=== PATIENT | male | born 1970 | race Two or more races ===

== ENCOUNTER 2024-09-18 20:55 | Inpatient (IN) | payer MEDICAID, SELFPAY ==
[2024-09-18 21:17] VITALS: BP 115/83; PULSE 112; RESP 20; TEMP 36.9; O2SAT 97
[2024-09-18 21:43] LABS: Basophils # (Auto) 0.0 Thou/mm3 (0.0-0.2); Basophils % (Auto) 0 % (0-2.5); Eosinophils # (Auto) 0.0 Thou/mm3 (0.0-0.5); Eosinophils % (Auto) 0 % (0-10); Hematocrit 42.5 % (41.0-53.0); Hemoglobin 14.9 g/dL (13.5-16.0); Immature Granulocytes Auto 0.03 Thou/mm3 (0.00-0.00); Lymphocytes # (Auto) 0.7 Thou/mm3 (1.0-4.8); Lymphocytes % (Auto) 7 % (10-50); Mean Corpuscular HGB Conc 35.1 g/dl (31.0-37.0); Mean Corpuscular Hemoglobin 34.8 pg (25.0-35.0); Mean Corpuscular Volume 99 fL (80-100); Monocytes # (Auto) 0.5 Thou/mm3 (0.0-0.8); Monocytes % (Auto) 5 % (0-12); Neutrophils # (Auto) 9.0 Thou/mm3 (1.8-7.7); Neutrophils % (Auto) 87 % (37-80); Nucleated Red Blood Cell # 0.00 Thou/mm3 (0.00-0.00); Nucleated Red Blood Cell % 0 /100 WBC (0); Platelet Count 386 Thou/mm3 (140-440); RDW Standard Deviation 46.5 fL (35.1-43.9); Red Blood Count 4.28 Miln/mm3 (4.50-5.90); White Blood Count 10.3 Thou/mm3 (3.8-10.6)
[2024-09-18 22:02] LABS: Alanine Aminotransferase 22 U/L (10-49); Albumin, Serum 5.2 gm/dL (3.5-5.0); Albumin/Globulin Ratio 1.9 (1.2-2.2); Alkaline Phosphatase 89 U/L (46-116); Anion Gap 13 (7-16); Aspartate Amino Transferase 23 U/L (0-34); BUN/Creatinine Ratio 24 Ratio (12-20); Bilirubin,Total 1.1 mg/dL (0.3-1.2); Blood Urea Nitrogen 24 mg/dL (9-23); Calcium 10.7 mg/dL (8.3-10.6); Calcium (Corrected) 10.7 mg/dL (8.5-10.1); Carbon Dioxide 30.4 mMol/L (20.0-31.0); Chloride 93 mMol/L (98-107); Creatinine (Component) 1.0 mg/dL (0.6-1.3); Globulin 2.8 gm/dL (2.3-3.5); Glucose 144 mg/dL (74-106); Lipase 32 U/L (12-53); Osmolality,Calculated 278 (275-295); Potassium 3.4 mMol/L (3.4-5.1); Sodium 136 mMol/L (136-145); Total Protein 8.0 gm/dL (5.7-8.2); eGFR > 60 See Note
--- NOTE | 2024-09-18 22:31 | PD.EDADDENDU ---
Emergency Room Addendum Addendum Narrative: Patient not seen formally by a physician as patient left after triage.
--- NOTE | 2024-09-18 23:01 | PC.NURSE ---
NO ANSWER AT ER LOBBY OR OUTSIDE ER TO COLLECT URINE SPECIMEN.
--- NOTE | 2024-09-18 23:01 | PD.EDABDPN ---
ED Abdominal Pain RME/HPI General Chief Complaint: Abdominal Pain Stated complaint: ABD PAIN Time seen by provider: 09/18/24 21:19 Arrival date/time: 09/18/24 20:55 RME / HPI RME / HPI narrative: Dr. Ng?rosy Main ED Evaluation: Related Data Allergies Allergy/AdvReac Type Severity Reaction Status Date / Time No Known Allergies Allergy Verified 09/18/24 23:00 Review of Systems Review of Systems Systems Reviewed: All systems reviewed, normal except as documented Past Medical History Social History SMOKING STATUS: Current every day smoker ED Exam Narrative Physical exam: GENERAL APPEARANCE: alert and oriented x 4, well-developed, well-nourished, no acute distress VITALS: All vitals were reviewed and the pulse ox is 97% on room air, which is normal according to my interpretation. HEENT: Normocephalic, atraumatic; pupils equal, round, reactive to light; EOMI; mucous membranes pink, moist; oropharynx clear NECK: Supple LUNGS: CTABL; no wheezes, no rales, no rhonchi HEART: Regular rate, regular rhythm; normal S1, S2; no murmurs ABDOMEN: non distended; normal BS; soft, no tenderness, no guarding, no rebound; no masses, no organomegaly, no hernia BACK: no CVA tenderness EXTREMITIES: atraumatic; no edema NEUROLOGIC: awake; alert and oriented x4; cranial nerves II-XII grossly intact; no focal sensory or motor deficits PSYCHIATRIC: appropriate mood and affect SKIN: warm, dry, normal color; no rashes Course Quality Measures none Orders Category Date Time Status Saline [Insert IV] NOW Care 09/18/24 21:18 Active CBC [CBC] Stat Lab 09/18/24 21:27 Completed CMP [Comprehensive Metabolic Panel] Stat Lab 09/18/24 21:27 Completed Lipase Stat Lab 09/18/24 21:27 Completed Urinalysis, C/S if Indicated Stat Lab 09/18/24 21:18 Ordered Vital Signs Vital signs: Vital Signs Temperature 98.4 F 09/18/24 21:17 Pulse Rate 112 H 09/18/24 21:17 Respiratory Rate 20 09/18/24 21:17 Blood Pressure 115/83 09/18/24 21:17 Pulse Oximetry (%) 97 09/18/24 21:17 Oxygen Delivery Method Room Air 09/18/24 21:17 Abdominal Pain MDM MDM Narrative MDM Narrative:: Scribe Attestation: 09/18/24 - Angelique Rosen am scribing for and in the presence of Dr. Ng. Patient data External records reviewed:: [facility] previous records (Per chart review, patient has no previous ED visits or admissions to this facility.) Clinical information provided by:: patient Social determinants that could affect healthcare access:: none Patient has the following chronic illnesses:: none How is presenting disease/condition affected by chronic disease/condition?: no chronic disease Evaluation data The following diagnostics were reviewed and interpreted by me:: lab results Lab and/or radiology exams considered but not ordered:: none Medications / Prescriptions Medications or Prescriptions considered but not ordered:: none Discharge Plan Prescriptions/Referrals Referrals: No Primary/Family,Physician [Primary Care Provider] - In 1 week Patient/Caregiver Discharge Instructions Print Language: Maltese
--- NOTE | 2024-09-18 23:07 | PC.NURSE ---
NO ANSWER AT ER LOBBY OR OUTSIDE ER TO BE SEEN BY .
--- NOTE | 2024-09-18 23:11 | PD.EDADDENDU ---
Emergency Room Addendum Addendum Narrative: Patient was not seen formally by physician as patient left after being triaged.
[2024-09-18 23:32] LABS: Collection Type, Urine Clean Catch
--- NOTE | 2024-09-18 23:32 | EDNOTE_ITS ---
ED Abdominal Pain RME/HPI General Chief Complaint: Abdominal Pain Stated complaint: ABD PAIN Time seen by provider: 09/18/24 21:19 Arrival date/time: 09/18/24 20:55 RME / HPI RME / HPI narrative: Dr. Ng?s Main ED Evaluation: 54yo male with no significant past medical or surgical history presents to the ED for complaints of generalized abdominal pain and distention x 3 days. Noted chills. No fever. Last bowel movement was 1 day [employer]. Reports several nonbloody emetic episodes over the last 24 hours. Social Hx includes tobacco use, but no alcohol or illicit drug use. Related Data Allergies Allergy/AdvReac Type Severity Reaction Status Date / Time No Known Allergies Allergy Verified 09/18/24 23:00 Review of Systems Review of Systems Systems Reviewed: All systems reviewed, normal except as documented ED Exam Narrative Physical exam: GENERAL APPEARANCE: alert and oriented x 4, appears to be in pain, in [id number] distress VITALS: All vitals were reviewed and the pulse ox is 97% on room air, which is normal according to my interpretation. HEENT: Normocephalic, atraumatic; pupils equal, round, reactive to light; EOMI; mucous membranes pink, moist; oropharynx clear NECK: Supple LUNGS: CTABL; no wheezes, no rales, no rhonchi HEART: Regular rate, regular rhythm; normal S1, S2; no murmurs ABDOMEN: 2+ distended; soft, diffuse tenderness with peritoneal findings at the epigastrium EXTREMITIES: atraumatic; no edema NEUROLOGIC: awake; alert and oriented x4; cranial nerves II-XII grossly intact; no focal sensory or motor deficits PSYCHIATRIC: appropriate mood and affect SKIN: warm, dry, normal color; no rashes Course Quality Measures none Orders Category Date Time Status Insert NG / OG tube NOW Care 09/19/24 02:43 Active Miscellaneous Nursing Order NOW Care 09/19/24 02:54 Active Saline [Insert IV] NOW Care 09/18/24 21:[address] abdomen pelvis wo con Stat Exams 09/18/24 23:39 Completed XR chest 1V post procedure Stat Exams 09/19/24 02:49 Ordered CBC [CBC] Stat Lab 09/18/24 21:27 Completed CMP [Comprehensive Metabolic Panel] Stat Lab 09/18/24 21:27 Completed Lipase Stat Lab 09/18/24 21:27 Completed Urinalysis, C/S if Indicated Stat Lab 09/18/24 23:28 Completed HYDROmorphone INJ [Dilaudid Inj] Med 09/19/24 00:59 Discontinued 0.5 mg IVP X1 ONE Lidocaine Inj 2% 20 ml [Xylocaine Inj 2% 20 ml] Med 09/19/24 02:48 Discontinued 8 ml INFL X1 ONE Morphine Inj Med 09/18/24 23:39 Discontinued 4 mg IVP X1 ONE Ondansetron Inj [Zofran Inj] Med 09/18/24 23:39 Discontinued 4 mg IVP X1 ONE Sodium Chloride 0.9% 1000 ml [Ns] 1,000 ml Med 09/18/24 23:41 Discontinued IV 999 mls/hr Vital Signs Vital signs: Vital Signs Temperature 98.4 F 09/18/24 21:17 Pulse Rate 112 H 09/18/24 21:17 Respiratory Rate 20 09/18/24 21:17 Blood Pressure 115/83 09/18/24 21:17 Pulse Oximetry (%) 97 09/18/24 21:17 Oxygen Delivery Method Room Air 09/18/24 21:17 Abdominal Pain MDM MDM Narrative MDM Narrative:: Scribe Attestation: 09/18/24 Angelique Garcia am scribing for and in the presence of Dr. Ng. 54yo male with no significant past medical or surgical history presents to the ED for complaints of generalized abdominal pain and distention x 3 days. Noted chills. Please see PE findings. Labs including CBC and CMP are unrmrekable. Patient hydrated with saline and treated with incremental doses of anlagesics with [id number] relief. CT shows gastric outlet obstruction. NG tube placed. Hospitalist and general surgeon consulted and will admit the patient. Dx: gastric outlet obstruction. Patient data External records reviewed:: [facility] previous records (Per chart review, patient has no previous ED visits or admissions to this facility.) Clinical information provided by:: patient Social determinants that could affect healthcare access:: none Patient has the following chronic illnesses:: none How is presenting disease/condition affected by chronic disease/condition?: no chronic disease Evaluation data The following diagnostics were reviewed and interpreted by me:: lab results and radiology exam(s) Lab and/or radiology exams considered but not ordered:: none Interpretation Summary: [facility] Report Signed Patient: KENZIE LUCIA. Record#: [id number] Birthdate: 1970 Age/Sex: 54 / M Location: [facility] Attending Dr: Ordering Physician: Vince Diaz DO Date of Service: 09/18/24 Procedure(s): CT abdomen pelvis wo con Accession Number(s): [id number] cc: Vince Diaz DO; Yakov Sheridan MD; NO PRIMARY/FAMILY,PHYSICIAN~ Examination: CT abdomen and pelvis without contrast. Coronal 3-D reconstructions. Sagittal 2-D reconstructions. Date and time of exam:September 18, 2024, 11:50 PM INDICATIONS: Abdominal pain and distention today CTDI: vol (mGy): 6.25 DLP: (mGycm): 355 Technique: Axial images of the abdomen have been obtained, 3 mm slice thickness Intravenous contrast material has not been administered. Low dose protocols were performed. One or more of the following dose reduction techniques were used; automated exposure control, adjustment of the mA and/or KV according to patient size, use of iterative reconstruction technique. Findings: No focal liver or splenic lesions Fluid distended stomach Gallbladder is poorly visualized No pancreatic mass No renal or ureteral calculi, no hydronephrosis No pericecal inflammatory change No renal or ureteral calculi, no hydronephrosis No diverticulitis Contracted urinary bladder No prostatomegaly The osseous structures are intact IMPRESSION: Limited study without intravenous contrast Fluid-filled distended stomach. If gastric outlet obstruction is a clinical consideration, suggest upper GI series in the a.m. to assess for gastric or peptic ulcer disease Dictated By: Yakov Sheridan MD Signed By: <Electronically signed by Yakov Sheridan MD in OV> 09/19/24 0007 Medications / Prescriptions Medications or Prescriptions considered but not ordered:: none Medication administrations:: Medication Administration History Acetaminophen (Acetaminophen 325 Mg Tablet) 650 mg PO Q6H PRN PRN Reason: Pain 1-3 and/or Fever >100.1 Stop: 10/19/24 04:16 Hydrocodone Bitart/Acetaminophen (Hydrocodone/Apap 10/325 Tab) 1 tab PO Q4H PRN PRN Reason: PAIN SCALE 4-6 (Moderate Stop: 09/24/24 04:16 Heparin Sodium (Porcine) (Heparin Sod Inj 5000 Unit/Ml Vial) 5,000 unit SC Q12HR CHASITY Stop: 10/03/24 08:59 Sodium Chloride (Ns) 1,000 mls @ 100 mls/hr IV .Q10H ONE Stop: 09/19/24 14:20 Last Admin: 09/19/24 04:41 Dose: 100 mls/hr Documented By: TRISTAN Morphine Sulfate (Morphine Sulf Inj 10 Mg/Ml Vial) 1 mg IVP Q6H PRN PRN Reason: PAIN SCALE 7-10 (Severe Stop: 09/24/24 04:16 Ondansetron HCl (Ondansetron Inj 2 Mg/Ml Inj 2 Ml) 4 mg IVP Q6H PRN; Protocol PRN Reason: NAUSEA OR VOMITING Stop: 10/19/24 04:16 Sennosides (Senna Tablet) 1 tab PO QDAY PRN; Protocol PRN Reason: constipation Stop: 10/19/24 04:16 Discontinued Medications Hydromorphone HCl (Hydromorphone Inj 2 Mg/Ml Vial) 0.5 mg IVP X1 ONE Stop: 09/19/24 01:00 Last Admin: 09/19/24 01:16 Dose: 0.5 mg Documented By: ALFREDITO Sodium Chloride (Ns) 1,000 mls @ 999 mls/hr IV .Q1H1M ONE Stop: 09/19/24 00:41 Last Infusion: 09/19/24 00:57 Dose: Infused Documented By: Admin: 09/19/24 00:07 Dose: 999 mls/hr Documented By: TRISTAN Lidocaine HCl (Lidocaine Inj 2% 20 Ml Vial) 8 ml INFL X1 ONE Stop: 09/19/24 02:49 Last Admin: 09/19/24 04:37 Dose: 8 ml Documented By: TRISTAN Comments: admin by rt Morphine Sulfate (Morphine Sulf Inj 10 Mg/Ml Vial) 4 mg IVP X1 ONE Stop: 09/18/24 23:40 Last Admin: 09/19/24 00:09 Dose: 4 mg Documented By: TRISTAN Ondansetron HCl (Ondansetron Inj 2 Mg/Ml Inj 2 Ml) 4 mg IVP X1 ONE; Protocol Stop: 09/18/24 23:40 Last Admin: 09/19/24 00:07 Dose: 4 mg Documented By: TRISTAN see above Consultations Consultation(s) initiated? (list below): Yes Consultation #1 (Physician, Specialty, Details): Discussed case with Dr. Ziegler from general surgery regarding consultation. Discussed patients ED course, exam findings, labs, and radiology results. Recommends consulting GI. Time: 02:36 Consultation #2 (Physician, Specialty, Details): Discussed case with the resident physician, attending Dr. Ribeiro from Hospitalist service regarding admission. Discussed patients ED course, exam findings, labs, and radiology results. The Hospitalist agrees to accept the patient for admission. Time: 02:39 Diagnosis Differential diagnosis abdominal pain: diverticulitis, gastroenteritis, pancreatitis and small bowel obstruction Most likely diagnosis given after review of the tests above:: see clinical impression below Admission Indicated Admission indicated?: indicated Admission Request Was there a request for admission?: Yes Admission Attestation Admission request attestation: Discussed case with [] from Hospitalist service regarding admission. Discussed patients ED course, exam findings, labs, and radiology results. The Hospitalist [agrees,declines] to accept the patient for admission. Disposition Plan Disposition Plan: Admit Discharge Plan Plan Patient Disposition: Admit Acute Care w/in Hospital Problem List Clinical Impression: Gastric outlet obstruction
[2024-09-18 23:38] LABS: Bilirubin,Urine Negative (Negative); Blood,Urine Trace (Negative); Clarity,Urine Clear (Clear/Hazy); Color,Urine Yellow (Lt Yel-Yel); Culture Indicated,Urine Not Indicated; Glucose, Urine Negative (Negative); Hyaline Casts,Urine < 1 /hpf (0-1); Ketones,Urine Trace (Negative); Leukocyte Esterase,Urine Negative (Negative); Nitrite,Urine Negative (Negative); PH,Urine 6.0 (5.0-7.0); Protein,Urine 1+ (Neg - Trace); RBC,Urine 6 /hpf (0-3); Specific Gravity,Urine 1.034 (1.001-1.035); Squamous Epithelial Cell,Urine < 1 /hpf (0-5); Urobilinogen,Urine Negative mg/dL (0.0-1.0); WBC,Urine 2 /hpf (0-5)
--- NOTE | 2024-09-18 23:39 | XR_ITS ---
Examination: CT abdomen and pelvis without contrast. Coronal 3-D reconstructions. Sagittal 2-D reconstructions. Date and time of exam:September 18, 2024, 11:50 PM INDICATIONS: Abdominal pain and distention today CTDI: vol (mGy): 6.25 DLP: (mGycm): 355 Technique: Axial images of the abdomen have been obtained, 3 mm slice thickness Intravenous contrast material has not been administered. Low dose protocols were performed. One or more of the following dose reduction techniques were used; automated exposure control, adjustment of the mA and/or KV according to patient size, use of iterative reconstruction technique. Findings: No focal liver or splenic lesions Fluid distended stomach Gallbladder is poorly visualized No pancreatic mass No renal or ureteral calculi, no hydronephrosis No pericecal inflammatory change No renal or ureteral calculi, no hydronephrosis No diverticulitis Contracted urinary bladder No prostatomegaly The osseous structures are intact IMPRESSION: Limited study without intravenous contrast Fluid-filled distended stomach. If gastric outlet obstruction is a clinical consideration, suggest upper GI series in the a.m. to assess for gastric or peptic ulcer disease
[2024-09-19] VITALS (7 sets, daily range): BP systolic 120–165; BP diastolic 65–97; PULSE 75–98; RESP 17–19; TEMP 36.2–36.8; O2SAT 95–98; BMI 22.8
[2024-09-19] MEDS: SODIUM CHLORIDE 0.9% 1000 ML 1,000 ML 999 ML IV (00:07)
[2024-09-19] MEDS: ONDANSETRON INJ 2 MG/ML INJ 2 ML 4 MG IVP (00:07)
[2024-09-19] MEDS: MORPHINE SULF INJ 10 MG/ML VIAL 4 MG IVP (00:09)
--- NOTE | 2024-09-19 00:16 | PC.NURSE ---
PT CAME INTO ER FOR 3XDAYS OF ABDOMINAL PAIN WITH N/V
[2024-09-19] MEDS: HYDROmorphone INJ 2 MG/ML VIAL 0.5 MG IVP (01:16)
--- NOTE | 2024-09-19 02:49 | XR_ITS ---
Examination: AP chest single view Technique one AP portable upright chest single view Date and time: September 19, 2024 0715 hours INDICATIONS: Post orogastric tube placement FINDINGS: Orogastric tube sidehole at the GE junction Normal heart size No lobar pneumonia. IMPRESSION: Advance the orogastric tube 7 cm
--- NOTE | 2024-09-19 04:28 | PD.RESHP ---
Documentation for date of: 09/19/24 [facility] History of Present Illness History of present illness: Trevor Cannon is a 54-year-old M with no known PMH who presents today with abdominal pain and vomiting. Patient states that the abdominal pain began about a month ago but that it has acutely worsened just today. He endorses vomiting 6 to 7 times today without hematemesis and had his last bowel movement 4-5 hours ago producing watery, black stools. In the ED, vitals showed: BP 115/83 HR 112 RR 20 Temp 98.4 SpO2 97% on room air ED Course: CBC showed slightly low RBC 4.28 but no other significant findings. CMP showed slightly low potassium 3.4, slightly low chloride 93, high glucose of 144, and slightly high calcium 10.7. In the ED, patient had an NG tube placed and was given 1 L NS bolus, IV Zofran x1, IV morphine x1, and IV Dilaudid x1. On Imaging: A CTAP was ordered to workup the abdominal distention and showed a fluid-filled distended stomach with possible gastric outlet obstruction. Per radiology, it was recommended that an upper GI series be conducted in the morning to assess for gastric or peptic ulcer disease. Patient was admitted for the work-up and management of possible gastric outlet obstruction and abdominal pain. Gastroenterology (Dr. Huerta) was consulted and is closely following the case. Review of Systems Review of Systems Narrative Review of Systems: General: Denies fevers or chills HEENT: Denies congestion or sore throat Heart: Denies chest pain or palpitations Lungs: Endorses shortness of breath. Denies cough Abdomen: Endorses generalized abdominal pain, N/V/D, and possible melena. Denies constipation Genitourinary: Denies frequency, urgency, dysuria, or hematuria Neurology: Denies any changes in vision, weakness or difficulty speaking Review of systems otherwise negative except what is mentioned above. 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 Skin: Warm, dry, intact, no obvious rash. Head: Normocephalic, atraumatic. Eye: Normal conjunctiva, PERRL. Throat: Oral mucosa moist. No obvious lesions in oropharynx. Cardiovascular: Regular rate and rhythm, no murmur, +S1/S2. Respiratory: Lungs are clear to auscultation, respirations unlabored, no crackles, no wheezing. Gastrointestinal: Generalized abdominal tenderness in all 4 quadrants. Distended abdomen. No guarding or rebound tenderness. Extremities: No edema, no cyanosis, no clubbing. 2+ radial pulse bilaterally, 2+ posterior tibial pulse bilaterally. Neuro: No focal deficits observed. Conversant, moving all extremities. No overt cerebellar signs/incoordination. Psychiatric: Cooperative, appropriate affect. Results: Labs 09/19/24 04:50 09/19/24 04:50 Labs: Short CBC 09/18/24 Range/Units 21:27 WBC 10.3 (3.8-10.6) Thou/mm3 Hgb 14.9 (13.5-16.0) g/dL Hct 42.5 (41.0-53.0) % Plt Count 386 (140-440) Thou/mm3 BMP 09/18/24 21:27 Sodium 136 Potassium 3.4 Chloride 93 L Carbon Dioxide 30.4 BUN 24 H Creatinine 1.0 Glucose 144 H Calcium 10.7 H Liver Function 09/18/24 Range/Units 21:27 Total Bilirubin 1.1 (0.3-1.2) mg/dL AST 23 (0-34) U/L ALT 22 (10-49) U/L Alkaline Phosphatase 89 (46-116) U/L Albumin 5.2 H (3.5-5.0) gm/dL Urine 09/18/24 Range/Units 23:28 Urine Color Yellow (Lt Yel-Yel) Urine Clarity Clear (Clear/Hazy) Urine pH 6.0 (5.0-7.0) Ur Specific [place] 1.034 (1.001-1.035) Urine Protein 1+ A (Neg - Trace) Urine Glucose (UA) Negative (Negative) Quality Measures Quality Measures none Medications Home Medications and Allergies Allergies Allergy/AdvReac Type Severity Reaction Status Date / Time No Known Allergies Allergy Verified 09/18/24 23:00 Visit Medications Acetaminophen (Acetaminophen 325 Mg Tablet) 650 mg PO Q6H PRN PRN Reason: Pain 1-3 and/or Fever >100.1 Stop: 10/19/24 04:16 Hydrocodone Bitart/Acetaminophen (Hydrocodone/Apap 10/325 Tab) 1 tab PO Q4H PRN PRN Reason: PAIN SCALE 4-6 (Moderate Stop: 09/24/24 04:16 Heparin Sodium (Porcine) (Heparin Sod Inj 5000 Unit/Ml Vial) 5,000 unit SC Q12HR CHASITY Stop: 10/03/24 08:59 Sodium Chloride (Ns) 1,000 mls @ 100 mls/hr IV .Q10H ONE Stop: 09/19/24 14:20 Morphine Sulfate (Morphine Sulf Inj 10 Mg/Ml Vial) 1 mg IVP Q6H PRN PRN Reason: PAIN SCALE 7-10 (Severe Stop: 09/24/24 04:16 Ondansetron HCl (Ondansetron Inj 2 Mg/Ml Inj 2 Ml) 4 mg IVP Q6H PRN; Protocol PRN Reason: NAUSEA OR VOMITING Stop: 10/19/24 04:16 Sennosides (Senna Tablet) 1 tab PO QDAY PRN; Protocol PRN Reason: constipation Stop: 10/19/24 04:16 Discontinued Medications Hydromorphone HCl (Hydromorphone Inj 2 Mg/Ml Vial) 0.5 mg IVP X1 ONE Stop: 09/19/24 01:00 Last Admin: 09/19/24 01:16 Dose: 0.5 mg Sodium Chloride (Ns) 1,000 mls @ 999 mls/hr IV .Q1H1M ONE Stop: 09/19/24 00:41 Last Infusion: 09/19/24 00:57 Dose: Infused Lidocaine HCl (Lidocaine Inj 2% 20 Ml Vial) 8 ml INFL X1 ONE Stop: 09/19/24 02:49 Morphine Sulfate (Morphine Sulf Inj 10 Mg/Ml Vial) 4 mg IVP X1 ONE Stop: 09/18/24 23:40 Last Admin: 09/19/24 00:09 Dose: 4 mg Ondansetron HCl (Ondansetron Inj 2 Mg/Ml Inj 2 Ml) 4 mg IVP X1 ONE; Protocol Stop: 09/18/24 23:40 Last Admin: 09/19/24 00:07 Dose: 4 mg Assessment & Plan Assessment Trevor Cannon is a 54-year-old M with no known PMH who presents today with abdominal pain and vomiting. Patient was admitted for the work-up and management of possible gastric outlet obstruction and abdominal pain. #Abdominal pain #Possible gastric outlet obstruction CTAP showed a fluid-filled distended stomach with possible gastric outlet obstruction -Ordered hemoglobin A1c -Ordered an upper GI series -GI has been consulted, awaiting recommendations (could consider upper GI series, gastric emptying study or barium swallow) #Hypercalcemia Upon admission, patient had a high calcium of 10.7 Denied any symptoms related to hypercalcemia -Started 1 L NS IV maintenance fluids -Ordered PTH levels Hospital Management: Disposition: undergoing workup and management for possible gastric outlet obstruction and abdominal pain Fluids: 1 L IV NS maintenance Diet: NPO for possible upper GI series Lines: none DVT Prophylaxis: heparin Bowel Prophylaxis: senna Jalloh: none CODE STATUS: Full Code I have examined the patient and conferred with my attending, Dr. Ribeiro, and my senior resident, Dr. Witt, regarding them. Santiago Schreiber DO PGY-1 Internal Medicine Attending Provider Attestation/Addendum After examination of the patient and review of the clinical data I feel that this patient needs admission to the hospital for further treatment/evaluation. I have discussed and was present for the essential components of the history, physical examination, diagnosis, and treatment plan with the resident. I agree with the patient's care as documented by the resident and amended herein by me. Darell Ribeiro DO. Although this document has been carefully reviewed, there may still be some phonetic and other typographical errors. These errors are purely grammatical due to imperfections in the software program and should not be construed in any way to compromise the substance of the patient's medical care during this visit. Patient seen and evaluated in the ED. 54-year-old male with no reported past medical history presented to the ED for abdominal pain which been present over the past month however acutely worse in the last day prior to admission. Endorses nonbilious, nonbloody vomiting. Last BM approximately 4 to 5 hours ago's which was very loose and black. Patient subsequently admitted for distended stomach, concern for gastric outlet obstruction. In the ED, patient was hypertensive at time of our visit 165/89 mmHg, patient was afebrile, and saturating well on room air. Labs largely unremarkable with exception of bicarb of 31. CT abdomen pelvis significant for a fluid-filled distended stomach with concern for gastric outlet obstruction. Patient was given 2 L NS, Zofran, morphine and Dilaudid in the ED. An NG tube was also ordered. At this time patient will be admitted to [facility] for possible gastric outlet obstruction. Lower concern for GIB at this time, gastroenterology has been consulted and an upper GI series has been ordered. FOBT also ordered. Pain control also on board as well as antiemetics. Will continue to monitor closely, appreciate GI recommendations
[2024-09-19] MEDS: LIDOCAINE INJ 2% 20 ML VIAL 8 ML INFL (04:37)
[2024-09-19] MEDS: SODIUM CHLORIDE 0.9% 1000 ML 1,000 ML 100 ML IV (04:41)
[2024-09-19 04:57] LABS: Basophils # (Auto) 0.0 Thou/mm3 (0.0-0.2); Basophils % (Auto) 0 % (0-2.5); Eosinophils # (Auto) 0.0 Thou/mm3 (0.0-0.5); Eosinophils % (Auto) 0 % (0-10); Hematocrit 38.0 % (41.0-53.0); Hemoglobin 13.4 g/dL (13.5-16.0); Immature Granulocytes Auto 0.02 Thou/mm3 (0.00-0.00); Lymphocytes # (Auto) 0.8 Thou/mm3 (1.0-4.8); Lymphocytes % (Auto) 8 % (10-50); Mean Corpuscular HGB Conc 35.3 g/dl (31.0-37.0); Mean Corpuscular Hemoglobin 34.6 pg (25.0-35.0); Mean Corpuscular Volume 98 fL (80-100); Monocytes # (Auto) 0.7 Thou/mm3 (0.0-0.8); Monocytes % (Auto) 7 % (0-12); Neutrophils # (Auto) 8.6 Thou/mm3 (1.8-7.7); Neutrophils % (Auto) 85 % (37-80); Nucleated Red Blood Cell # 0.00 Thou/mm3 (0.00-0.00); Nucleated Red Blood Cell % 0 /100 WBC (0); Platelet Count 344 Thou/mm3 (140-440); RDW Standard Deviation 46.2 fL (35.1-43.9); Red Blood Count 3.87 Miln/mm3 (4.50-5.90); White Blood Count 10.1 Thou/mm3 (3.8-10.6)
--- NOTE | 2024-09-19 05:02 | PC.NURSE ---
ATTEMPTED TO CONTACT [facility] 3 TIMES. NO ANSWER FROM PHONE CALL. WILL REATTEMPT TO CALL AGAIN
[2024-09-19 05:14] LABS: Parathyroid Hormone Intact 43.0 pg/ml (18.5-88.0)
[2024-09-19 05:20] LABS: Glucose Estimated Average 97 mg/dL (80-131); Hemoglobin A1C 5.0 % Hgb (4.8-6.0)
[2024-09-19 05:25] LABS: Alanine Aminotransferase 19 U/L (10-49); Albumin, Serum 4.5 gm/dL (3.5-5.0); Albumin/Globulin Ratio 1.7 (1.2-2.2); Alkaline Phosphatase 75 U/L (46-116); Anion Gap 11 (7-16); Aspartate Amino Transferase 20 U/L (0-34); BUN/Creatinine Ratio 33 Ratio (12-20); Bilirubin,Total 0.9 mg/dL (0.3-1.2); Blood Urea Nitrogen 26 mg/dL (9-23); Calcium 9.4 mg/dL (8.3-10.6); Calcium (Corrected) 9.4 mg/dL (8.5-10.1); Carbon Dioxide 31.5 mMol/L (20.0-31.0); Cardiac Risk Estimate 2.6 RATIO (4.0-6.7); Chloride 95 mMol/L (98-107); Cholesterol 132 mg/dL (132-200); Creatinine (Component) 0.8 mg/dL (0.6-1.3); Globulin 2.7 gm/dL (2.3-3.5); Glucose 133 mg/dL (74-106); HDL Cholesterol 50 mg/dL (40-60); LDL Cholesterol,Calculated 65 mg/dL (0-130); Magnesium 1.6 mg/dL (1.6-2.6); Osmolality,Calculated 280 (275-295); Phosphorous 3.4 mg/dL (2.4-5.1); Potassium 3.5 mMol/L (3.4-5.1); Sodium 137 mMol/L (136-145); Total Protein 7.2 gm/dL (5.7-8.2); Triglycerides 83 mg/dL (30-150); eGFR > 60 See Note
--- NOTE | 2024-09-19 05:28 | XR_ITS ---
Examination: Upper GI series with KUB Fluoroscopy 7 spot fluoroscopic films of the stomach AP oblique abdomen films 2 views Date and time: September 19, 2024 1223 hours INDICATIONS: Vomiting this week, fluid distended stomach on CT abdomen pelvis September 18, 2024 TECHNIQUE AND FINDINGS: Patient received 120 cc Gastrografin through the orogastric tube Abundant food content in the stomach Delayed gastric emptying Spasm and irritability involving the duodenal bulb, small central duodenal bulb ulcer Duodenal sweep unremarkable Fluoroscopy 0.9 minute radiation dose 49.65 milligray 7 spot fluoroscopic films of the stomach IMPRESSION: Severe active peptic disease duodenum Small duodenal bulb ulcer
--- NOTE | 2024-09-19 06:31 | PC.NURSE ---
Attempted to use staff interpreter to obtain admission questions upon admission to floor. POC explained to patient, as admission questions began to be asked pt stated if your not going to do the fucking surgery then i am going to go to back to [place], get the fuck out of my room per staff interpreter. Pt continued to refuse to answer admission questions. Admission assessment was extremely limited.
--- NOTE | 2024-09-19 11:07 | XR_ITS ---
Examination: AP chest single view TECHNIQUE: Portable sitting AP chest single view Date and time: September 19, 2024 1135 hours INDICATIONS: Reposition orogastric tube. Finds: Orogastric tube in the stomach satisfactory position. Normal heart size IMPRESSION: Orogastric tube in the stomach satisfactory position
--- NOTE | 2024-09-19 11:13 | PC.SS ---
Follow up note: Pt has small bowel obstruction. On IV fluids. Xray to confirm NG Tube placement.
--- NOTE | 2024-09-19 13:16 | PD.RESPRO ---
Documentation for date of: 09/19/24 [facility] admission, patient presented with chief complain of hematemisis and melena over the last 3 days. Patient denied history of alcohol use or chronic NSAID use. Recent weight loss. Given gastric obstruction, penidng small bowel series, concern for ulcer vs malignancy vs stenosis. Gastroenteroloy consulted, Dr. Huerta. NPO, ice chips ok. Pending EGD. Subjective Subjective Interval history: Patient was evaluated at bedside today. Patient endorsed a 3 day history of abdominal pain, nausea, and hematemesis. Patient stated he had vomited 7 times each of the past 3 days. Bedside towel revealed eren hematemesis/coffee-ground emesis from earlier this morning. Patient stated that his last bowel movement was yesterday, resembling melena and of solid consistency. Patient has not had previous similar episodes. Patient does not use NSAIDs or drink, but has a smoking history. Patient acknowledged history of weight loss over the past couple of months. Consulted Dr. Huerta, recommended EGD and colonoscopy for upper GI bleed Upper GI series completed today shows likely peptic ulcer disease in the first part of the duodenum with severe collection of contents in the stomach. Exam Vital Signs Temp Pulse Resp BP Pulse Ox O2 Del Method 97.2 F 84 18 128/75 97 Room Air 09/19/24 12:00 09/19/24 12:09/19/24 12:09/19/24 12:00 09/19/24 12:09/19/24 12:00 Narrative Exam General Appearance: Alert & Oriented X3, well-nourished male who is lying in bed in moderate distress due to abdominal pain. HEENT: Skull symmetrical and atraumatic. Conjunctivae pink and moist. Pupils equal, round, reactive to light and accommodation (PERRL). External ear without lesion or discharge. Straight, nares patient, mucosa pink, no discharge. No thyroid nodule appreciated. No cervical lymphadenopathy. Cardio: Normal Rate and Rhythm with S1 and S2 heart sounds. No murmurs or extra heart sounds auscultated. No bruits on carotid auscultation. No peripheral edema or cyanosis. Lungs: Symmetric with good expansion. Chest and back non-tender. Breath sounds vesicular without crackles, wheezing or rhonchi Abdomen: Tenderness in all four quadrants most notably in the epigastric region, moderate distension, diminished bowel sounds. Neuro: Alert, cooperative, oriented to person, place, and time. Speech clear. CN grossly intact. Upper motor strength 5/5 and Lower motor strength 5/5. Sensation intact. Objective Labs 09/20/24 05:54 09/20/24 05:54 Labs: Laboratory Results - last 24 hr 09/18/24 09/18/24 09/19/24 21:27 23:28 04:50 WBC 10.3 10.1 RBC 4.28 L 3.87 L Hgb 14.9 13.4 L Hct 42.5 38.0 L MCV 99 98 MCH 34.8 34.6 MCHC 35.1 35.3 RDW Std Deviation 46.5 H 46.2 H Plt Count 386 344 D Neut % (Auto) 87 H 85 H Lymph % (Auto) 7 L 8 L Bartholomew % (Auto) 5 7 Eos % (Auto) 0 0 Baso % (Auto) 0 0 Neut # (Auto) 9.0 H 8.6 H Lymph # (Auto) 0.7 L 0.8 L Bartholomew # (Auto) 0.5 0.7 Eos # (Auto) 0.0 0.0 Baso # (Auto) 0.0 0.0 Immature Gran # (Auto) 0.03 H 0.02 H Absolute Nucleated RBC 0.00 0.00 Immature Gran % 0 0 Nucleated RBC % 0 0 Sodium 136 137 Potassium 3.4 3.5 Chloride 93 L 95 L Carbon Dioxide 30.4 31.5 H Anion Gap 13 11 BUN 24 H 26 H Creatinine 1.0 0.8 Estim Creat Clear Calc Not Performed. Not Performed. eGFR > 60 > 60 BUN/Creatinine Ratio 24 H 33 H Glucose [address] Glu mg/dL 97 Hemoglobin A1c 5.0 Calculated Osmolality 278 280 Calcium 10.7 H 9.4 Corrected Calcium 10.7 H 9.4 Phosphorus 3.4 Magnesium 1.6 Total Bilirubin 1.1 0.9 AST 23 20 ALT 22 19 Alkaline Phosphatase 89 75 Total Protein 8.0 7.2 Albumin 5.2 H 4.5 D Globulin 2.8 2.7 Albumin/Globulin Ratio 1.9 1.7 Triglycerides 83 Cholesterol 132 LDL Cholesterol, Calc 65 HDL Cholesterol 50 Cholesterol/HDL Ratio 2.6 L Lipase 32 PTH Intact 43.0 Ur Collection Type Clean Catch Urine Color Yellow Urine Clarity Clear Urine pH 6.0 Ur Specific [place] 1.034 Urine Protein 1+ A Urine Glucose (UA) Negative Urine Ketones Trace Urine Blood Trace Urine Nitrite Negative Urine Bilirubin Negative Urine Urobilinogen (Auto) Negative Ur Leukocyte Esterase Negative Urine RBC 6 H Urine WBC 2 Ur Squamous Epith Cells < 1 Urine Bacteria None Hyaline Casts < 1 Ur Culture Indicated? Not Indicated Quality Measures Quality Measures none Assessment & Plan Assessment Current Active Medications: Generic Name Dose Route Start Last Admin Trade Name Freq PRN Reason Stop Dose Admin Acetaminophen 650 mg 09/19/24 04:17 Acetaminophen 325 Mg Tablet PO 10/19/24 04:16 Q6H PRN Pain 1-3 and/or Fever >100.1 Hydrocodone Bitart/Acetaminophen 1 tab 09/19/24 04:17 Hydrocodone/Apap 10/325 Tab PO 09/24/24 04:16 Q4H PRN PAIN SCALE 4-6 (Moderate Heparin Sodium (Porcine) 5,000 unit 09/19/24 09:00 09/19/24 08:52 Heparin Sod Inj 5000 Unit/Ml Vial SC 10/03/24 08:59 Not Given Q12HR CHASITY Sodium Chloride 1,000 mls @ 100 mls/hr 09/19/24 04:21 09/19/24 04:41 Ns IV 09/19/24 14:20 100 mls/hr .Q10H ONE Administration Morphine Sulfate 1 mg 09/19/24 04:17 Morphine Sulf Inj 10 Mg/Ml Vial IVP 09/24/24 04:16 Q6H PRN PAIN SCALE 7-10 (Severe Ondansetron HCl 4 mg 09/19/24 04:17 Ondansetron Inj 2 Mg/Ml Inj 2 Ml IVP 10/19/24 04:16 Q6H PRN NAUSEA OR VOMITING Protocol Pantoprazole Sodium 40 mg 09/19/24 21:00 Pantoprazole Inj 40 Mg Vial IVP 10/19/24 20:59 BID CHASITY Sennosides 1 tab 09/19/24 04:17 Senna Tablet PO 10/19/24 04:16 QDAY PRN constipation Protocol Plan Trevor Cannon is a 54-year-old M with no known PMH who presents today with a three day history of abdominal pain, nausea, and hematemesis. Patient was admitted for the work-up and management of upper GI bleed and abdominal pain with gastric outlet obstruction. #Upper GI Bleed Patient has had multiple episodes of hematemesis over the past 3 days, in addition to at least one episode of melena; hematemesis visible on bedside towel. Patient acknowledged weight loss over the past couple of months Possible differentials: NSAID use (patient denies); peptic ulcer disease or malignancy both more likely Pertinent labs: 09/19 RBC 3.87 Hgb 13.4 Hct 38 Plan: -Consulted Dr. Huerta, plan for EGD and colonscopy -Protonix 40 mg IVP BID -Monitor CBC #Intractable Nausea and Vomiting Patient has had multiple episodes of hematemesis over the past 3 days, most recently this morning Plan: -NPO and NG tube #Abdominal pain #Possible gastric outlet obstruction Patient endorsing abdominal pain, most notable in the epigastric region CTAP 09/19 showed a fluid-filled distended stomach with possible gastric outlet obstruction Possible differentials: peptic ulcer disease, malignancy Plan: -Upper GI series 09/19: likely peptic ulcer disease in the first part of the duodenum with severe collection of contents in the stomach -hemoglobin A1c 09/19: 5 #Hypercalcemia Upon admission, patient had a high calcium of 10.7 Denied any symptoms related to hypercalcemia Pertinent labs: PTH 09/19 43 Plan: -IV fluid resuscitation -Monitor for symptoms, such as constipation and fatigue Hospital Management: Disposition: undergoing workup and management for upper GI bleed and abdominal pain with gastric outlet obstruction Fluids: 1 L IV NS maintenance Diet: NPO Lines: peripheral GI Prophylaxis: Protonix 40 mg IVP BID DVT Prophylaxis: heparin CODE STATUS: Full Code Case reviewed with attending Dr. Souza and senior resident Dr. Barrera. Tanya Le MS-4 - The patient's plan was discussed with attending Dr. Libby Barrera MD PGY2 Internal Medicine Attending Provider Attestation/Addendum 54-year-old male with no known past medical history presented with abdominal pain and hematemesis. Imaging significant for possible gastric outlet obstruction and plan to admit the patient for acute upper GI bleed with differentials including peptic ulcer disease, malignancy versus less likely esophageal varices. Got called by nursing staff that patient wanted to leave AMA however counseled patient and patient is in agreement to stay to undergo the full workup. I reviewed above note and agree with findings and plans. I have also personally examined the patient with medicine team and went over assessment and plan with medical team including internal combustion engine inspector and resident physician.
--- NOTE | 2024-09-19 14:50 | PD.RESCONSUL ---
HPI Data of Consult Requesting Physician: Romel Souza MD Admitting Provider: Scott Ribeiro DO Attending Provider: Romel Souza MD Primary Care Provider: Physician No Primary/Family Consult Narrative Reason for consult: abdominal pain and vomiting History of present illness: A 54-year-old male with no known past medical history and a significant smoking history presented to the ED on 09/18 with complaints of abdominal pain and vomiting. The patient reported that the abdominal pain began approximately 4?5 months ago but has worsened significantly, prompting this visit. He described the abdominal pain as constant burning/hot sensation that started bilaterally in the abdomen and radiating centrally. Over the past 24 hours, he has experienced 7?8 episodes of hematemesis with diaphoresis. He also reported a bitter taste in his mouth following vomiting. He had one episode of dark loose stool yesterday. He has been self-medicating with a mixture of baking soda and lemon, which he stated usually provides some relief, though it has not been effective this time. The patient also mentioned that he had previously been prescribed a medication from this hospital for abdominal inflammation , which provided relief. However, he recently ran out of the medication and has not taken it since. He reported daily use of this medication. He denies NSAID use. He endorsed loss of appetite and weight loss. ED Course: - ED vitals: BP 115/83, HR 112, RR 20, Temp 98.4F, O2 sat 97% on room air - ED labs: WBC 10.3, Hgb 14.9, Hct 42.5, Bicarb 30.4, BUN 24, Cr 1.0, Glucose 144 - ED imaging: CT abd/pelvis showed fluid filled stomach, gastric outlet obstruction - ED treatment: 1 NG tube placed and was given 1 L NS bolus, IV Zofran x1, IV morphine x1, and IV Dilaudid x1 History obtained via certified qa automation architect. cc:: cc: Romel Souza MD Review of Systems Review of Systems Narrative Review of Systems: All 13 review of systems are negative except at listed above in the HPI. Past Medical History Past Medical History Comments PMH COMMENT: PMH: no known PMH PSHx: denies previous surgeries Allergies: denies allergies Social History: - Tobacco: current smoker; 1 pack a day for ~40 years (started smoking ~13-14 years old). - Alcohol: denies alcohol use. - Drugs: denies illicit drug use. 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 Family History: patient reports no family history of medical conditions. Exam Vital Signs Temp Pulse Resp BP Pulse Ox O2 Del Method 97.2 F 84 18 128/75 97 Room Air 09/19/24 12:00 09/19/24 12:00 09/19/24 12:00 09/19/24 12:00 09/19/24 12:00 09/19/24 12:00 Narrative Exam Physical Exam: General: Alert, no acute distress. Skin: Warm, dry, intact, no obvious rash. Head: Normocephalic, atraumatic. Eye: Normal conjunctiva, PERRL. Cardiovascular: Regular rate and rhythm. Respiratory: Lungs are clear to auscultation, respirations unlabored, no crackles, no wheezing. Gastrointestinal: soft, non-distended, no tenderness to superficial and deep palpation, no guarding or rebound tenderness. Bowel sounds present. Extremities: No edema, no cyanosis, no clubbing. Neuro: No focal deficits observed. Moving all 4 extremities. Psychiatric: Cooperative, appropriate affect. Results Labs 09/19/24 04:50 09/19/24 04:50 Labs: Short CBC 09/18/24 09/19/24 Range/Units 21:27 04:50 WBC 10.3 10.1 (3.8-10.6) Thou/mm3 Hgb 14.9 13.4 L (13.5-16.0) g/dL Hct 42.5 38.0 L (41.0-53.0) % Plt Count 386 344 D (140-440) Thou/mm3 [facility] 09/18/24 09/19/24 21:27 04:50 Sodium 136 137 Potassium 3.4 3.5 Chloride 93 L 95 L Carbon Dioxide 30.4 31.5 H BUN 24 H 26 H Creatinine 1.0 0.8 Glucose 144 H 133 H Calcium 10.7 H 9.4 Liver Function 09/18/24 09/19/24 Range/Units 21:27 04:50 Total Bilirubin 1.1 0.9 (0.3-1.2) mg/dL AST 23 20 (0-34) U/L ALT 22 19 (10-49) U/L Alkaline Phosphatase 89 75 (46-116) U/L Albumin 5.2 H 4.5 D (3.5-5.0) gm/dL Urine 09/18/24 Range/Units 23:28 Urine Color Yellow (Lt Yel-Yel) Urine Clarity Clear (Clear/Hazy) Urine pH 6.0 (5.0-7.0) Ur Specific [place] 1.034 (1.001-1.035) Urine Protein 1+ A (Neg - Trace) Urine Glucose (UA) Negative (Negative) Quality Measures Quality Measures none Medications Home Medications and Allergies Home Medications ?Medication ?Instructions ?Recorded ?Confirmed ?Type No Known Home Medications 09/19/24 09/19/24 History Allergies Allergy/AdvReac Type Severity Reaction Status Date / Time No Known Allergies Allergy Verified 09/18/24 23:00 Visit Medications Acetaminophen (Acetaminophen 325 Mg Tablet) 650 mg PO Q6H PRN PRN Reason: Pain 1-3 and/or Fever >100.1 Stop: 10/19/24 04:16 Hydrocodone Bitart/Acetaminophen (Hydrocodone/Apap 10/325 Tab) 1 tab PO Q4H PRN PRN Reason: PAIN SCALE 4-6 (Moderate Stop: 09/24/24 04:16 Heparin Sodium (Porcine) (Heparin Sod Inj 5000 Unit/Ml Vial) 5,000 unit SC Q12HR CHASITY Stop: 10/03/24 08:59 Last Admin: 09/19/24 08:52 Dose: Not Given Morphine Sulfate (Morphine Sulf Inj 10 Mg/Ml Vial) 1 mg IVP Q6H PRN PRN Reason: PAIN SCALE 7-10 (Severe Stop: 09/24/24 04:16 Ondansetron HCl (Ondansetron Inj 2 Mg/Ml Inj 2 Ml) 4 mg IVP Q6H PRN; Protocol PRN Reason: NAUSEA OR VOMITING Stop: 10/19/24 04:16 Pantoprazole Sodium (Pantoprazole Inj 40 Mg Vial) 40 mg IVP BID CHASITY Stop: 10/19/24 20:59 Sennosides (Senna Tablet) 1 tab PO QDAY PRN; Protocol PRN Reason: constipation Stop: 10/19/24 04:16 Discontinued Medications Hydromorphone HCl (Hydromorphone Inj 2 Mg/Ml Vial) 0.5 mg IVP X1 ONE Stop: 09/19/24 01:00 Last Admin: 09/19/24 01:16 Dose: 0.5 mg Sodium Chloride (Ns) 1,000 mls @ 999 mls/hr IV .Q1H1M ONE Stop: 09/19/24 00:41 Last Infusion: 09/19/24 00:57 Dose: Infused Sodium Chloride (Ns) 1,000 mls @ 100 mls/hr IV .Q10H ONE Stop: 09/19/24 14:20 Last Admin: 09/19/24 04:41 Dose: 100 mls/hr Lidocaine HCl (Lidocaine Inj 2% 20 Ml Vial) 8 ml INFL X1 ONE Stop: 09/19/24 02:49 Last Admin: 09/19/24 04:37 Dose: 8 ml Morphine Sulfate (Morphine Sulf Inj 10 Mg/Ml Vial) 4 mg IVP X1 ONE Stop: 09/18/24 23:40 Last Admin: 09/19/24 00:09 Dose: 4 mg Ondansetron HCl (Ondansetron Inj 2 Mg/Ml Inj 2 Ml) 4 mg IVP X1 ONE; Protocol Stop: 09/18/24 23:40 Last Admin: 09/19/24 00:07 Dose: 4 mg Assessment & Plan Plan A 54-year-old male with no known past medical history and a significant smoking history presented with generalized abdominal pain, hematemesis, and hematochezia, admitted for concern of gastric outlet obstruction. #Gastric ulcer with obstruction #Likely pyloric channel stenosis due to peptic ulcer disease #Hematemesis - Hemoglobin 13.4, BUN 26, Cr 0.8 - Plan for fiberoptic esophagogastroduodenoscopy with possible biopsy , possible therapeutic intervention, under IV moderate sedation. Intervention scheduled for tomorrow. - NPO, starting at midnight tonight, expect PO meds - Transfuse for hemoglobin <7 - Continue NG tube decompression - Continue IV fluids, monitor electrolytes - Continue Pantoprazole BID 40mg IV - Will follow patient Case discussed with Attending Dr. Huerta. Kayode Wolfe DO PGY1 Attending Provider Attestation/Addendum Patient evaluated by me along with the internal medicine team Laboratory data imaging studies as well as patient's history and clinical presentation also reviewed Schedule the patient for fiberoptic esophagogastroduodenoscopy with possible biopsy possible therapeutic intervention under intravenous moderate sedation scheduled for tomorrow N.p.o. midnight tonight Thank you very much for the opportunity to participate in the care of this patient
[2024-09-19] MEDS: MORPHINE SULF INJ 10 MG/ML VIAL IVP (20:01)
[2024-09-19] MEDS: HEPARIN SOD INJ 5000 UNIT/ML VIAL SC (20:05)
[2024-09-20] VITALS: BP 111/81; PULSE 97; RESP 17; TEMP 36.5; O2SAT 98
[2024-09-20 04:00] VITALS: BP 106/65; PULSE 77; RESP 18; TEMP 36.2; O2SAT 98
[2024-09-20 06:33] LABS: Basophils # (Auto) 0.0 Thou/mm3 (0.0-0.2); Basophils % (Auto) 0 % (0-2.5); Eosinophils # (Auto) 0.1 Thou/mm3 (0.0-0.5); Eosinophils % (Auto) 1 % (0-10); Hematocrit 38.7 % (41.0-53.0); Hemoglobin 13.2 g/dL (13.5-16.0); Immature Granulocytes Auto 0.02 Thou/mm3 (0.00-0.00); Lymphocytes # (Auto) 1.0 Thou/mm3 (1.0-4.8); Lymphocytes % (Auto) 15 % (10-50); Mean Corpuscular HGB Conc 34.1 g/dl (31.0-37.0); Mean Corpuscular Hemoglobin 34.7 pg (25.0-35.0); Mean Corpuscular Volume 102 fL (80-100); Monocytes # (Auto) 0.5 Thou/mm3 (0.0-0.8); Monocytes % (Auto) 8 % (0-12); Neutrophils # (Auto) 4.9 Thou/mm3 (1.8-7.7); Neutrophils % (Auto) 76 % (37-80); Nucleated Red Blood Cell # 0.00 Thou/mm3 (0.00-0.00); Nucleated Red Blood Cell % 0 /100 WBC (0); Platelet Count 339 Thou/mm3 (140-440); RDW Standard Deviation 47.8 fL (35.1-43.9); Red Blood Count 3.80 Miln/mm3 (4.50-5.90); White Blood Count 6.4 Thou/mm3 (3.8-10.6)
[2024-09-20 07:05] LABS: Alanine Aminotransferase 12 U/L (10-49); Albumin, Serum 4.3 gm/dL (3.5-5.0); Albumin/Globulin Ratio 1.6 (1.2-2.2); Alkaline Phosphatase 75 U/L (46-116); Anion Gap 12 (7-16); Aspartate Amino Transferase 17 U/L (0-34); BUN/Creatinine Ratio 30 Ratio (12-20); Bilirubin,Total 0.9 mg/dL (0.3-1.2); Blood Urea Nitrogen 21 mg/dL (9-23); Calcium 9.0 mg/dL (8.3-10.6); Calcium (Corrected) 9.0 mg/dL (8.5-10.1); Carbon Dioxide 27.3 mMol/L (20.0-31.0); Chloride 100 mMol/L (98-107); Creatinine (Component) 0.7 mg/dL (0.6-1.3); Estimated Creatinine Clearance 110.1 mL/min (>60); Globulin 2.7 gm/dL (2.3-3.5); Glucose 77 mg/dL (74-106); Magnesium 2.1 mg/dL (1.6-2.6); Osmolality,Calculated 279 (275-295); Phosphorous 2.6 mg/dL (2.4-5.1); Potassium 3.6 mMol/L (3.4-5.1); Sodium 139 mMol/L (136-145); Total Protein 7.0 gm/dL (5.7-8.2); eGFR > 60 See Note
[2024-09-20 07:58] VITALS: BP 121/78; PULSE 112; RESP 18; TEMP 36.3; O2SAT 96
--- NOTE | 2024-09-20 09:01 | EVENTNT_ITS ---
<Statement entered by Romel Souza MD - 09/29/24 14:16> I reviewed above note and agree with findings and plans. I have also personally examined the patient with medicine team and went over assessment and plan with medical team including internet sourcer and resident physician. Documentation for date of: 09/20/24 Event Note Event Note: Patient left AMA at approximately 9:02 AM on 09/20/2024 Patient alert and oriented with full range of capacity. Patient patient's condition explained including risk of bleeding upper GI, risk of malignancy with foregoing any further workup, and risk of . Patient's labs and all images reviewed at length with patient. Despite extensive efforts convince patient to remain hospitalized, patient decided to leave AGAINST MEDICAL ADVICE. Advised if patient condition worsens to seek immediate medical advice. - The patient's plan was discussed with attending Dr. Libby Barrera MD PGY2 Internal Medicine
== END 2024-09-20 09:04 | disposition left against medical advice (07) | DRG 253 ==
LOC: SERX 09-19 02:44 → SERHOLD 09-19 04:32 → S3SX 09-19 05:56
PROVIDERS: Admitting Provider Student in an Organized Health Care Education/Training Program; Emergency Provider Emergency Medicine; Visit Provider Internal Medicine
DX: K92.0 Hematemesis (principal); R10.9 Unspecified abdominal pain; E83.52 Hypercalcemia; K31.89 Other diseases of stomach and duodenum; F17.210 Nicotine dependence, cigarettes, uncomplicated; K92.1 Melena; Z53.29 Procedure and treatment not carried out because of patient's decision for other reasons
CPT/HCPCS: 36415; 71045; 74176; 74240; 80053; 80061; 81001; 83036; 83690; 83735; 83970; 84100; 85025; 96361; 96374; 96376; J1171; J1644; J2270; J2405; J2470; J7030; Q9963

== ENCOUNTER 2024-09-29 08:35 | Inpatient (IN) | payer MEDICAID, SELFPAY ==
[2024-09-29] VITALS (12 sets, daily range): BP systolic 84–138; BP diastolic 64–98; PULSE 80–130; RESP 14–24; TEMP 36.9–37.3; O2SAT 92–100; BMI 26.2
--- NOTE | 2024-09-29 08:54 | EDRME_ITS ---
Rapid Medical Screening Exam [facility] Arrival date/time: 09/29/24 08:35 54-year-old male with no known medical history presents to the emergency room with a chief complaint of abdominal pain, blood in the stool, and hematemesis x 3 days. Patient states he was recently admitted but signed out AMA I have greeted and performed a focused initial assessment of this patient. A comprehensive ED assessment and evaluation of the patient, analysis of all test results, and completion of the medical decision making process will be conducted by additional ED providers. Chief Complaint: Abdominal Pain Time Seen by Provider: 09/29/24 08:38 Vital signs: Vital Signs Temperature 98.9 F 09/29/24 08:47 Pulse Rate 130 H 09/29/24 08:47 Respiratory Rate 16 09/29/24 08:47 Blood Pressure 84/64 L 09/29/24 08:47 Pulse Oximetry (%) 98 09/29/24 08:47 Oxygen Delivery Method Room Air 09/29/24 08:47 Vital signs reviewed by provider: Yes
--- NOTE | 2024-09-29 09:00 | PC.NURSE ---
PT WITH MULTIPLE ROUND RED BRUISING TYPE MARTINEZ ALL OVER BACK AND FEW ON CHEST. PT STATES SHE DID IT TO TAKE OUT THE BAD AIR. DENIES INJURY. MARTINEZ LOOK LIKE THE MARTINEZ MADE FROM CUPPING
--- NOTE | 2024-09-29 09:13 | EDNOTE_ITS ---
ED GI Bleed RME/HPI General Chief complaint: Abdominal Pain Stated complaint: BLACK EMESIS X 1WK; UPPER ABD PAIN X 3WKS Time Seen by Provider: 09/29/24 08:38 Arrival date/time: 09/29/24 08:35 Limitations: no limitations RME / HPI RME / HPI Narrative: 09/29/24 08:35 54-year-old male with no known medical history presents to the emergency room with a chief complaint of abdominal pain, blood in the stool, and hematemesis x 3 days. Patient states he was recently admitted but signed out AMA I have greeted and performed a focused initial assessment of this patient. A comprehensive ED assessment and evaluation of the patient, analysis of all test results, and completion of the medical decision making process will be conducted by additional ED providers. DR. MAHESH BOLAND ED EVALUATION 54 year old male with no stated medical history presents to the ED for evaluation of abdominal pain, hematemesis, and hematochezia today. Pain described as aching burning in sensation that is located most to the epigastric and lower chest regions, rating as moderate. Patient reports he was evaluated here 1 week ago for similar symptoms and admitted for further evaluation of GI bleed. However, stated he was unable to tolerate the NG tube and signed out AGAINST MEDICAL ADVICE. States since leaving the hospital he is having a lot of episodes of hematemesis a day. Additionally complains of feeling globally weak and dizzy in the last 2 days. Denies drinking alcohol though does admit to smoking cigarettes daily. Related Data Home Medications ?Medication ?Instructions ?Recorded ?Confirmed No Known Home Medications 09/19/2409/09 Allergies Allergy/AdvReac Type Severity Reaction Status Date / Time No Known Allergies Allergy Verified 09/29/24 08:39 Review of Systems Review of Systems Systems Reviewed: All systems reviewed, normal except as documented Past Medical History Past Medical History CARDIAC: Negative Congestive Heart Failure RESPIRATORY: Negative Chronic Obstructive Pulmonary Disease (COPD) GASTROINTESTINAL: Positive Ulcer GENITOURINARY: Negative Renal Disease ENDOCRINE: Negative Diabetes Mellitus Type 1 or Diabetes Mellitus Type 2 Social History SMOKING STATUS: Current every day smoker ED Exam General Limitations: Present no limitations General appearance: Present alert and in no apparent distress Head Head exam: Present atraumatic Eye Eye exam: Present normal appearance, PERRL and EOMI ENT ENT exam: Present normal exam, normal oropharynx and mucous membranes moist Neck Neck exam: Present normal inspection, full ROM and trachea midline Chest Chest inspection: Present symmetric chest wall rise and other (corpus excavatum) Respiratory Respiratory exam: Present normal lung sounds bilaterally Cardiovascular Cardiovascular exam: Present regular rate, normal rhythm and normal heart sounds Abdominal Exam Abdominal exam: Present soft, tenderness (mild to moderate tenderness in the upper quadrants, no guarding, no rebound) and normal bowel sounds Extremities Exam Extremities exam: Present normal inspection and full ROM Back Exam Back exam: Present normal inspection and full ROM Neurological Exam Neurological exam: Present alert, oriented X3 and CN II-XII intact Psychiatric Psychiatric exam: Present normal affect and normal mood Skin Skin exam: Present warm, dry, intact and normal color Course Quality Measures none Orders Category Date Time Status CT Screening NOW Care 09/29/24 09:44 Active Insert IV STAT Care 09/29/24 08:55 Active Insert NG / OG tube NOW Care 09/29/24 11:33 Active Miscellaneous Nursing Order NOW Care 09/29/24 09:34 Active Transfuse,blood/blood products NOW Care 09/29/24 09:[address] abdomen pelvis w con Stat Exams 09/29/24 09:43 Completed XR upper GI series w/KUB Stat Exams 09/29/24 08:52 Ordered CBC Stat Lab 09/29/24 09:24 Completed CMP [Comprehensive Metabolic Panel] Stat Lab 09/29/24 09:24 Completed Lipase Stat Lab 09/29/24 09:24 Completed PT [Prothrombin Time with INR] Stat Lab 09/29/24 09:24 Completed PTT [Partial Thromboplastin Time] Stat Lab 09/29/24 09:24 Completed Type and Screen Stat Lab 09/29/24 09:24 Results UA [Urinalysis] Stat Lab 09/29/24 08:51 Ordered Urine Culture Stat Lab 09/29/24 08:51 Ordered prbc [Red Blood Cells] Stat Lab 09/29/24 09:24 Results Lidocaine Jelly 2% Urojet [Xylocaine Jelly 2% Urojet] Med 09/29/24 11:33 Discontinued See Dose Instructions TOP X1 ONE Ondansetron Inj [Zofran Inj] Med 09/29/24 08:55 Discontinued 4 mg IVP X1 ONE POTASSIUM CHL 10 mEq IVPB [Kcl Ivpb] Med 09/29/24 12:03 Ordered 10 meq in 100 ml IV X1 Pantoprazole Inj [Protonix Inj] Med 09/29/24 09:35 Discontinued 80 mg IVP X1 ONE Pantoprazole/Ns 80Mg IV Premix [Protonix/NS 80mg IV Med 09/29/24 09:35 Active Premix] 80 mg in 100 ml IV X1 Sodium Chloride 0.9% 1000 ml [Ns] 1,000 ml Med 09/29/24 08:55 Discontinued IV 999 mls/hr cefTRIAXone/D5w 1gm IV premix [Rocephin/D5w 1gm IV Med 09/29/24 10:51 Discontinued premix] 1 gm in 50 ml IV X1 Reevaluation(s) Reevaluation #1: Vital signs normalized Time: 11:35 Reevaluation #2: RN reports there is about 800cc of bloody material from NG tube Time: 11:45 Vital Signs Vital signs: Vital Signs Temperature 98.9 F 09/29/24 08:47 Pulse Rate 130 H 09/29/24 08:47 Respiratory Rate 16 09/29/24 08:47 Blood Pressure 84/64 L 09/29/24 08:47 Pulse Oximetry (%) 98 09/29/24 08:47 Oxygen Delivery Method Room Air 09/29/24 08:47 Pulse ox is 98% on room air which is adequate. GI Bleed MDM Narrative MDM Narrative:: Jeanine Rosen am scribing for and in the presence of Dr. Slaughter. Patient data External records reviewed:: [facility] previous records (I reviewed admission from 09/18/2024 through 09/20/2024. During admission upper GI series showed likely peptic ulcer disease with severe collection of contents in the stomach. GI Dr. Huerta was consulted with plans to perform EGD; however, patient left AMA ) Clinical information provided by:: patient Social determinants that could affect healthcare access:: other (specify) (active tobacco smoker ) Patient has the following chronic illnesses:: No chronic medical history reported How is presenting disease/condition affected by chronic disease/condition?: no chronic disease Evaluation data The following diagnostics were reviewed and interpreted by me:: lab results Lab and/or radiology exams considered but not ordered:: none Interpretation Summary: Ordering Physician: Jose J Slaughter MD Date of Service: 09/29/24 Procedure(s): CT abdomen pelvis w con Accession Number(s): [id number] cc: Yakov Sheridan MD; NO PRIMARY/FAMILY,PHYSICIAN; Jose J Slaughter MD~ Examination: CT abdomen with intravenous contrast CT pelvis with intravenous contrast 2-D coronal reconstructions 2-D sagittal reconstructions Date and time of exam:September 29, 2024, 1111 hours Comparison September 18, 2024 INDICATIONS: Upper abdominal pain and vomiting blood today. CTDI: vol (mGy) 5.25 DLP: (mGycm) 295 Technique: Multiple axial sections of the abdomen and pelvis have been obtained. 64 slice high-resolution scanner used. 3 mm axial sections have been obtained, post intravenous injection 30 cc Isovue-300 2-D sagittal, coronal reconstructions obtained. Low dose protocols were performed. One or more of the following dose reduction techniques were used; automated exposure control, adjustment of the mA and/or KV according to patient size, use of iterative reconstruction technique. Findings: Retrocardiac gastric hernia Fluid distended stomach Gallbladder is not visualized No extrahepatic biliary tract dilatation No pancreatic mass No renal or ureteral calculi, no hydronephrosis Aorta normal size No pericecal inflammatory change No bowel obstruction Urinary bladder intact No prostatomegaly IMPRESSION: As before fluid distended stomach, consider gastric outlet obstruction, clinical correlation advised No extravasation of contrast into the gastrointestinal intact on this study Dictated By: Yakov Sheridan MD Signed By: <Electronically signed by Yakov Sheridan MD in OV> 09/29/24 1139 Medications / Prescriptions Medications or Prescriptions considered but not ordered:: none Medication administrations:: Medication Administration History Pantoprazole Sodium (Protonix/Ns 80mg Iv Premix) 80 mg in 100 mls @ 10 mls/hr IV X1 ONE Stop: 09/29/24 19:34 Last Admin: 09/29/24 10:02 Dose: 10 mls/hr Documented By: [facility] Potassium Chloride (Kcl Ivpb) 10 meq in 100 mls @ 100 mls/hr IV X1 ONE Stop: 09/29/24 13:02 Discontinued Medications Sodium Chloride (Ns) 1,000 mls @ 999 mls/hr IV .Q1H1M ONE Stop: 09/29/24 09:55 Last Admin: 09/29/24 09:20 Dose: 999 mls/hr Documented By: [facility] Ceftriaxone Sodium/Dextrose (Rocephin/D5w 1gm Iv Premix) 1 gm in 50 mls @ 100 mls/hr IV X1 ONE Stop: 09/29/24 11:20 Last Admin: 09/29/24 11:33 Dose: 100 mls/hr Documented By: [facility] Lidocaine HCl (Lidocaine Jelly 2% (Urojet) 10 Ml Tube) 0 ml TOP X1 ONE Stop: 09/29/24 11:34 Last Admin: 09/29/24 11:40 Dose: 10 ml Documented By: [facility] Comments: USED FOR NG INSERTION Ondansetron HCl (Ondansetron Inj 2 Mg/Ml Inj 2 Ml) 4 mg IVP X1 ONE; Protocol Stop: 09/29/24 08:56 Last Admin: 09/29/24 09:20 Dose: 4 mg Documented By: [facility] Pantoprazole Sodium (Pantoprazole Inj 40 Mg Vial) 80 mg IVP X1 ONE Stop: 09/29/24 09:36 Last Admin: 09/29/24 10:00 Dose: 80 mg Documented By: [facility] see above Consultations Consultation(s) initiated? (list below): Yes Consultation #1 (Physician, Specialty, Details): Called Dr. Huerta however unable to discuss case as he was in a procedure. Consultation #2 (Physician, Specialty, Details): I spoke with residents working with Dr. España. Discussed patients PMHx, HPI, ED course, exam findings, labs, and radiology results. The hospitalist agree to accept the patient for admission. Time: 12:00 Diagnosis GI bleed differential diagnosis: esophageal varices, gastritis, Daria-Bocanegra syndrome, Upper gastrointestinal hemorrhage, Lower gastrointestinal hemorrhage, hematochezia and melena Most likely diagnosis given after review of the tests above:: Upper GI bleed Compensated hypovolemic shock Admission Indicated Admission indicated?: indicated Admission Request Was there a request for admission?: Yes Admission Attestation Admission request attestation: Discussed case with [] from Hospitalist service regarding admission. Discussed patients ED course, exam findings, labs, and radiology results. The Hospitalist [agrees,declines] to accept the patient for admission. Disposition Plan Disposition Plan: Admit Critical Care Time Critical Care Time Critical Care Time: Yes Total Critical Care Time (min.): 45 Attestation: The high probability of sudden, clinically significant deterioration in the patient's condition required the highest level of my preparedness to intervene urgently. The services I provided to this patient were to treat and/or prevent clinically significant deterioration. Services included the following: chart data review, reviewing nursing notes and/or old charts, documentation time, international travel consultant collaboration regarding findings and treatment options, medication orders and management, direct patient care, vital sign assessments and ordering, interpreting and reviewing diagnostic studies and lab tests. Aggregate critical care time includes only time during which I was engaged in work directly related to the patient's care, as described above, whether at bedside or elsewhere in the Emergency Department. It did not include time spent performing other reported procedures or the services of residents, students, nurses or physician assistants. Discharge Plan Plan Patient Disposition: Admit Acute Care w/in Hospital Prescriptions/Referrals Prescriptions/Med Rec: No Action No Known Home Medications Referrals: No Primary/Family,Physician [Primary Care Provider] - In 1 week Problem List Clinical Impression: Upper gastrointestinal bleeding, Hypovolemic shock Patient/Caregiver Discharge Instructions Print Language: English Stand Alone Forms: Anna Award Info., Patient Portal Info Letter
[2024-09-29] MEDS: ONDANSETRON INJ 2 MG/ML INJ 2 ML 4 MG IVP (09:20)
[2024-09-29] MEDS: SODIUM CHLORIDE 0.9% 1000 ML 1,000 ML 999 ML IV (09:20)
[2024-09-29 09:41] LABS: Basophils # (Auto) 0.0 Thou/mm3 (0.0-0.2); Basophils % (Auto) 0 % (0-2.5); Eosinophils # (Auto) 0.0 Thou/mm3 (0.0-0.5); Eosinophils % (Auto) 0 % (0-10); Hematocrit 45.2 % (41.0-53.0); Hemoglobin 15.4 g/dL (13.5-16.0); Immature Granulocytes Auto 0.08 Thou/mm3 (0.00-0.00); Lymphocytes # (Auto) 1.1 Thou/mm3 (1.0-4.8); Lymphocytes % (Auto) 7 % (10-50); Mean Corpuscular HGB Conc 34.1 g/dl (31.0-37.0); Mean Corpuscular Hemoglobin 34.2 pg (25.0-35.0); Mean Corpuscular Volume 100 fL (80-100); Monocytes # (Auto) 0.4 Thou/mm3 (0.0-0.8); Monocytes % (Auto) 3 % (0-12); Neutrophils # (Auto) 14.8 Thou/mm3 (1.8-7.7); Neutrophils % (Auto) 90 % (37-80); Nucleated Red Blood Cell # 0.00 Thou/mm3 (0.00-0.00); Nucleated Red Blood Cell % 0 /100 WBC (0); Platelet Count 631 Thou/mm3 (140-440); RDW Standard Deviation 47.3 fL (35.1-43.9); Red Blood Count 4.50 Miln/mm3 (4.50-5.90); White Blood Count 16.4 Thou/mm3 (3.8-10.6)
--- NOTE | 2024-09-29 09:43 | XR_ITS ---
Examination: CT abdomen with intravenous contrast CT pelvis with intravenous contrast 2-D coronal reconstructions 2-D sagittal reconstructions Date and time of exam:September 29, 2024, 1111 hours Comparison September 18, 2024 INDICATIONS: Upper abdominal pain and vomiting blood today. CTDI: vol (mGy) 5.25 DLP: (mGycm) 295 Technique: Multiple axial sections of the abdomen and pelvis have been obtained. 64 slice high-resolution scanner used. 3 mm axial sections have been obtained, post intravenous injection 30 cc Isovue-300 2-D sagittal, coronal reconstructions obtained. Low dose protocols were performed. One or more of the following dose reduction techniques were used; automated exposure control, adjustment of the mA and/or KV according to patient size, use of iterative reconstruction technique. Findings: Retrocardiac gastric hernia Fluid distended stomach Gallbladder is not visualized No extrahepatic biliary tract dilatation No pancreatic mass No renal or ureteral calculi, no hydronephrosis Aorta normal size No pericecal inflammatory change No bowel obstruction Urinary bladder intact No prostatomegaly IMPRESSION: As before fluid distended stomach, consider gastric outlet obstruction, clinical correlation advised No extravasation of contrast into the gastrointestinal intact on this study
[2024-09-29 09:58] LABS: Alanine Aminotransferase 22 U/L (10-49); Albumin, Serum 4.8 gm/dL (3.5-5.0); Albumin/Globulin Ratio 1.7 (1.2-2.2); Alkaline Phosphatase 97 U/L (46-116); Anion Gap 16 (7-16); Aspartate Amino Transferase 27 U/L (0-34); BUN/Creatinine Ratio 16 Ratio (12-20); Bilirubin,Total 1.0 mg/dL (0.3-1.2); Blood Urea Nitrogen 22 mg/dL (9-23); Calcium 10.1 mg/dL (8.3-10.6); Calcium (Corrected) 10.1 mg/dL (8.5-10.1); Carbon Dioxide 35.3 mMol/L (20.0-31.0); Chloride 85 mMol/L (98-107); Creatinine (Component) 1.4 mg/dL (0.6-1.3); Globulin 2.9 gm/dL (2.3-3.5); Glucose 197 mg/dL (74-106); Lipase 31 U/L (12-53); Osmolality,Calculated 280 (275-295); Potassium 3.3 mMol/L (3.4-5.1); Sodium 136 mMol/L (136-145); Total Protein 7.7 gm/dL (5.7-8.2); eGFR > 60 See Note
[2024-09-29 10:00] LABS: INR 1.1 (0.9-1.3); Partial Thromboplastin Time 25.6 Seconds (22.0-36.0); Prothrombin Time 11.7 Seconds (9.0-12.2)
[2024-09-29] MEDS: PANTOPRAZOLE/NS 80MG IV PREMIX 80 MG/100 ML BAG 10 MG IV ×2 (10:02→18:24)
--- NOTE | 2024-09-29 10:17 | PC.NURSE ---
consent for blood transfusion and ct screening completed with [facility] head of digital #[id number] for jane. Blood consent signed by pt
[2024-09-29] MEDS: cefTRIAXone/D5w 1gm IV premix 1 GM/50 ML BAG IV (11:33)
[2024-09-29] MEDS: LIDOCAINE JELLY 2% (Urojet) 10 ML TUBE TOP (11:40)
[2024-09-29] MEDS: POTASSIUM CHL 10 mEq IVPB 10 MEQ/100 ML BAG 100 MEQ IV (12:14)
--- NOTE | 2024-09-29 12:16 | PC.NURSE ---
HOSPITALIST'S IN TO TALK WITH PT THRU [employer]ETING REPORTING ANALYST
--- NOTE | 2024-09-29 12:26 | PC.NURSE ---
PER HOSPITALIST DO NOT TRANSFUSE BLOOD AT THIS TIME
--- NOTE | 2024-09-29 13:26 | PC.NURSE ---
PT WITH TOTAL 1100 ML'S BROWN FLUID FROM NG
[2024-09-29] MEDS: RINGERS LACTATED 1000 ML 1,000 ML 100 ML IV (13:33)
--- NOTE | 2024-09-29 13:55 | PC.NURSE ---
attempted to call report and nurse unavailable
--- NOTE | 2024-09-29 14:16 | PD.RESCONSUL ---
[facility] Data of Consult Consult date: 09/29/24 Requesting Physician: Mary España DO Admitting Provider: Mary España DO Attending Provider: Mary España DO Primary Care Provider: Physician No Primary/Family Consult Narrative Reason for consult: Continued hematemesis History of present illness: Patient is a 54-year-old male with no stated past medical or surgical history presenting for continued hematemesis; of note, he was here last week for similar symptoms, but left AMA before EGD for potential peptic ulcer disease based on upper GI series could be completed. Since last week he states that the hematemesis has gotten worse, and that he has bloody bowel movements. He also endorses epigastric burning abdominal pain. He did not eat or drink anything different over the past week, and food or liquids do not change symptoms. cc:: cc: Mary España DO Review of Systems Review of Systems Narrative Review of Systems: As per HPI Past Medical History Past Medical History Comments PMH COMMENT: PMH: None PSH: None Social history: 1 PPD smoker for 39 years, no alcohol or drugs Exam Vital Signs Temp Pulse Resp BP Pulse Ox O2 Del Method 99.1 F 99 15 127/92 H 95 Room Air 09/29/24 13:27 09/29/24 14:00 09/29/24 14:00 09/29/24 14:00 09/29/24 14:00 09/29/24 14:00 Routine Cardiovascular Exam Cardiovascular: Present RRR, S1 and S2 Routine Abdominal Exam Abdominal: Present soft, normoactive bowel sounds and tenderness (Epigastric, worse with deep palpation) Results Labs 09/29/24 09:24 09/29/24 09:24 Labs: Short CBC 09/29/24 Range/Units 09:24 WBC 16.4 H (3.8-10.6) Thou/mm3 Hgb 15.4 (13.5-16.0) g/dL Hct 45.2 (41.0-53.0) % Plt Count 631 H D (140-440) Thou/mm3 BMP 09/29/24 09:24 Sodium 136 Potassium 3.3 L Chloride 85 L Carbon Dioxide 35.3 H BUN 22 Creatinine 1.4 H Glucose 197 H Calcium 10.1 Liver Function 09/29/24 Range/Units 09:24 Total Bilirubin 1.0 (0.3-1.2) mg/dL AST 27 (0-34) U/L ALT 22 (10-49) U/L Alkaline Phosphatase 97 (46-116) U/L Albumin 4.8 (3.5-5.0) gm/dL Quality Measures Quality Measures none Medications Home Medications and Allergies Home Medications ?Medication ?Instructions ?Recorded ?Confirmed ?Type No Known Home Medications 09/19/24 09/29/24 History Allergies Allergy/AdvReac Type Severity Reaction Status Date / Time No Known Allergies Allergy Verified 09/29/24 08:39 Visit Medications Hydromorphone HCl (Hydromorphone Inj 2 Mg/Ml Vial) 1 mg IVP Q4HR PRN PRN Reason: PAIN SCALE 4-10(Mod-Sev Stop: 10/04/24 12:22 Pantoprazole Sodium (Protonix/Ns 80mg Iv Premix) 80 mg in 100 mls @ 10 mls/hr IV X1 ONE Stop: 09/29/24 19:34 Last Admin: 09/29/24 10:02 Dose: 10 mls/hr Lactated Ringer's (Lactated Ringers) 1,000 mls @ 100 mls/hr IV .Q10H CHASITY Stop: 09/30/24 08:24 Last Admin: 09/29/24 13:33 Dose: 100 mls/hr Discontinued Medications Sodium Chloride (Ns) 1,000 mls @ 999 mls/hr IV .Q1H1M ONE Stop: 09/29/24 09:55 Last Admin: 09/29/24 09:20 Dose: 999 mls/hr Ceftriaxone Sodium/Dextrose (Rocephin/D5w 1gm Iv Premix) 1 gm in 50 mls @ 100 mls/hr IV X1 ONE Stop: 09/29/24 11:20 Last Admin: 09/29/24 11:33 Dose: 100 mls/hr Potassium Chloride (Kcl Ivpb) 10 meq in 100 mls @ 100 mls/hr IV X1 ONE Stop: 09/29/24 13:02 Last Infusion: 09/29/24 13:25 Dose: Infused Lidocaine HCl (Lidocaine Jelly 2% (Urojet) 10 Ml Tube) 0 ml TOP X1 ONE Stop: 09/29/24 11:34 Last Admin: 09/29/24 11:40 Dose: 10 ml Ondansetron HCl (Ondansetron Inj 2 Mg/Ml Inj 2 Ml) 4 mg IVP X1 ONE; Protocol Stop: 09/29/24 08:56 Last Admin: 09/29/24 09:20 Dose: 4 mg Pantoprazole Sodium (Pantoprazole Inj 40 Mg Vial) 80 mg IVP X1 ONE Stop: 09/29/24 09:36 Last Admin: 09/29/24 10:00 Dose: 80 mg Assessment & Plan Plan Patient is a 54-year-old male with no known past medical or surgical history presenting with continued hematemesis. He was recently admitted to [facility] from 09/18/2024 to 09/20/2024 for similar symptoms, but left AMA before EGD could be performed. #Suspected peptic ulcer disease, hematemesis, blood in bowel movement HGB is 15.4, NG tube in place, GI series from previous visit shows severe active peptic ulcer disease in the duodenum. No fecal occult blood test done. Plan: Keep NPO, protonix 8mg/hr drip, EGD tomorrow
--- NOTE | 2024-09-29 14:18 | ESHP_ITS ---
<Statement entered by Christian Euceda MD - 09/29/24 16:27> Patient seen and examined at bedside. I discussed and supervised with the fashion styling intern physician who took care of this patient. I personally saw and examined the patient. I agree with most of the assessment and plan. Patient presented with hemetemesis, melena, abdominal pain. Significant stomach distention on CT. Patient AMA's 09/20 for same complaint, did not want EGD at that time, symptoms did not resolve. NG tube placed on LIS, with over 1 L coffee ground contents removed. GI consulted. NPO, PPI, monitor Hg, plan for EGD. Plan of care discussed with attending Dr. España. Christian Euceda MD PGY-2 Documentation for date of: 09/29/24 HPI History of Present Illness Chief complaint: Abdominal pain and vomiting blood for the past 3 days History of present illness: Mr. Trevor Cannon is a 54-year-old Prydeinig-speaking male with no documented past medical history who presents with 3 days of recurrent hematemesis and epigastric abdominal pain, starting shortly after leaving AMA from a prior admission on 09/20/2024. He describes the pain as constant, crampy, and localized to the epigastric area, with no relieving or aggravating factors. The vomitus appears as dark red, resembling coffee grounds, occurring 2?3 times daily. He also endorses melena, generalized fatigue, dizziness upon standing, and mild shortness of breath. He denies chest pain or palpitations. Notably, he was hospitalized earlier this month for the same complaints and was found to have a fluid-filled distended stomach on CT with concern for gastric outlet obstruction. An upper GI series during that admission showed likely peptic ulcer disease (PUD) in the proximal duodenum. He was planned for endoscopy but left AMA before it was completed. In the ED today, NG tube output was 1.1 L of brown fluid. CT imaging again showed a fluid-distended stomach concerning for gastric outlet obstruction. He has been started on NG decompression and PPI therapy. Dr. Huerta (GI) has been re-consulted for EGD. Transfusion ordered despite hemoglobin of 15.4 due to ongoing blood loss and symptoms, but we discontinued it. ED COURSE: * Vitals: Tachycardic, normotensive * Labs: WBC 16.4, Hgb 15.4, Platelets 631, K+ 3.3 (repleted), Creatinine 1.4 (up from baseline 0.7 on 09/20), * NG output: 1.1 L brown/bloody fluid * CT A/P: Persistent fluid-filled stomach; concern for gastric outlet obstruction REVIEW OF SYSTEMS: * General: Fatigue, chills * Cardiac: Denies chest pain or palpitations * Pulmonary: Mild SOB, no cough * GI: Nausea, hematemesis, epigastric pain, melena, hematochezia * : No dysuria or hematuria * Neuro: Dizziness, no focal deficits * Constitutional: Weight loss (prior history), poor appetite PAST MEDICAL HISTORY: None known PAST SURGICAL HISTORY: Denies any surgeries MEDICATIONS: None ALLERGIES: NKDA FAMILY HISTORY: No known family history of GI malignancy or ulcers. 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 * Current smoker (~40 pack-year history) * Denies alcohol or drug use * Prydeinig speaking Exam Vital Signs Temp Pulse Resp BP Pulse Ox O2 Del Method 99.1 F 99 15 127/92 H 95 Room Air 09/29/24 13:27 09/29/24 14:00 09/29/24 14:00 09/29/24 14:00 09/29/24 14:00 09/29/24 14:00 Narrative Exam Gen: Alert, tired-appearing, NG tube in place with bloody output HEENT: Pale conjunctiva, no scleral icterus CV: Tachycardic, regular rhythm Lungs: Clear to auscultation bilaterally Abdomen: Mild distension, epigastric tenderness, hypoactive bowel sounds Ext: No edema Neuro: Alert and oriented x3, no focal deficits Results: Labs 09/30/24 04:36 09/30/24 04:36 Labs: Short CBC 09/29/24 Range/Units 09:24 WBC 16.4 H (3.8-10.6) Thou/mm3 Hgb 15.4 (13.5-16.0) g/dL Hct 45.2 (41.0-53.0) % Plt Count 631 H D (140-440) Thou/mm3 BMP 09/29/24 09:24 Sodium 136 Potassium 3.3 L Chloride 85 L Carbon Dioxide 35.3 H BUN 22 Creatinine 1.4 H Glucose 197 H Calcium 10.1 Liver Function 09/29/24 Range/Units 09:24 Total Bilirubin 1.0 (0.3-1.2) mg/dL AST 27 (0-34) U/L ALT 22 (10-49) U/L Alkaline Phosphatase 97 (46-116) U/L Albumin 4.8 (3.5-5.0) gm/dL Quality Measures Quality Measures VTE prophylaxis Medications Home Medications and Allergies Home Medications ?Medication ?Instructions ?Recorded ?Confirmed ?Type No Known Home Medications 09/19/2409/10 History Allergies Allergy/AdvReac Type Severity Reaction Status Date / Time No Known Allergies Allergy Verified 09/29/24 08:39 Visit Medications Hydromorphone HCl (Hydromorphone Inj 2 Mg/Ml Vial) 1 mg IVP Q4HR PRN PRN Reason: PAIN SCALE 4-10(Mod-Sev Stop: 10/04/24 12:22 Pantoprazole Sodium (Protonix/Ns 80mg Iv Premix) 80 mg in 100 mls @ 10 mls/hr IV X1 ONE Stop: 09/29/24 19:34 Last Admin: 09/29/24 10:02 Dose: 10 mls/hr Lactated Ringer's (Lactated Ringers) 1,000 mls @ 100 mls/hr IV .Q10H CHASITY Stop: 09/30/24 08:24 Last Admin: 09/29/24 13:33 Dose: 100 mls/hr Discontinued Medications Sodium Chloride (Ns) 1,000 mls @ 999 mls/hr IV .Q1H1M ONE Stop: 09/29/24 09:55 Last Admin: 09/29/24 09:20 Dose: 999 mls/hr Ceftriaxone Sodium/Dextrose (Rocephin/D5w 1gm Iv Premix) 1 gm in 50 mls @ 100 mls/hr IV X1 ONE Stop: 09/29/24 11:20 Last Admin: 09/29/24 11:33 Dose: 100 mls/hr Potassium Chloride (Kcl Ivpb) 10 meq in 100 mls @ 100 mls/hr IV X1 ONE Stop: 09/29/24 13:02 Last Infusion: 09/29/24 13:25 Dose: Infused Lidocaine HCl (Lidocaine Jelly 2% (Urojet) 10 Ml Tube) 0 ml TOP X1 ONE Stop: 09/29/24 11:34 Last Admin: 09/29/24 11:40 Dose: 10 ml Ondansetron HCl (Ondansetron Inj 2 Mg/Ml Inj 2 Ml) 4 mg IVP X1 ONE; Protocol Stop: 09/29/24 08:56 Last Admin: 09/29/24 09:20 Dose: 4 mg Pantoprazole Sodium (Pantoprazole Inj 40 Mg Vial) 80 mg IVP X1 ONE Stop: 09/29/24 09:36 Last Admin: 09/29/24 10:00 Dose: 80 mg Assessment & Plan Plan 54-year-old male with no known PMH presenting with recurrent hematemesis and abdominal pain, re-admitted for suspected upper GI bleed secondary to gastric outlet obstruction. #Upper GI Bleed secondary to suspected PUD with gastric outlet obstruction Patient has ongoing hematemesis with melena, dark NG output, and known prior imaging consistent with likely PUD-related gastric outlet obstruction. Hemoglobin is currently stable but symptoms are worsening. Hgb 15.4, Plt 631, WBC 16.4 CT A/P ? fluid-distended stomach, consistent with prior study Plan: * NPO, maintain NG tube decompression * Reconsult GI for urgent EGD (Dr. Huerta) * Continue IV pantoprazole 40 mg BID * Serial CBCs, monitor for hemodynamic changes #Abdominal Pain Likely secondary to gastric outlet obstruction and distension from retained gastric contents. Plan: * Continue pain control as needed (avoid NSAIDs) * Monitor abdominal exam * Continue NG decompression and bowel rest #Acute Kidney Injury (TAYLOR) Cr 1.4 today, baseline 0.7 --> qualifies as TAYLOR likely secondary to volume loss/dehydration and third spacing Plan: * Continue IV fluids * Monitor I/Os, daily creatinine * Hold nephrotoxins #Hypokalemia K+ 3.3 likely due to GI losses (vomiting, NG suction) Plan: * Already repleted * Continue monitoring, replace as needed Health [facility], possible EGD Diet: NPO DVT prophylaxis: SCD GI prophylaxis: Protonix 40 mg IVP BID Code Status: Full code ----- Plan discussed with attending physician Dr. España and senior resident Dr. Obdulia MD PGY-1 Internal Medicine Attending Provider Attestation/Addendum Silas, Mary España DO, attest that I was physically present for the jimenez portions of the service and evaluated the patient with the resident and I reviewed and discussed the case with the resident and agree with the resident's findings and plans of care as documented above Patient is a 54-year-old male with recent admission for gastric outlet obstruction who subsequently left AGAINST MEDICAL ADVICE as he did not want to wait for endoscopy. Patient had come for abdominal pain that had been worsening for about a month with hematemesis and melena. Patient returns to the ED for similar symptoms over 1 week later. Patient states that he has been unable to eat for the past few days. He also endorses having coffee-ground emesis. He states that he had black stool yesterday. Patient endorses having nausea and vomiting. He denies any fevers or chills. He denies any shortness of breath or chest pain otherwise. CT abdomen and pelvis was done again in the ED showing similar findings of fluid distended stomach concerning for gastric outlet obstruction. An NG tube was placed and GI was consulted. Patient was hypotensive in the ED and 1 unit of PRBCs was ordered. Hemoglobin appears to be hemoconcentrated at 15.4 with baseline and 13. Will trend hemoglobin closely, but place hold on PRBC at this time. Will continue with NG tube on low intermittent suction and follow-up with GI recommendations. Will keep patient on Protonix drip at this time. Patient denies any drug or alcohol use otherwise. He denies any GI malignancy in his family. Patient currently endorses having epigastric pain, but reports improvement with decompression with NG tube.
--- NOTE | 2024-09-29 14:56 | ESDS_ITS ---
<Statement entered by Romel Souza MD - 10/07/24 08:02> I reviewed above note and agree with findings and plans. I have also personally examined the patient with medicine team and went over assessment and plan with medical team including international operations manager and resident physician. Planned Discharge Date 09/20/24 DS: Providers Provider Date of admission: 09/19/24 04:28 Primary care physician: Physician No Primary/Family Admitting Provider: Scott Ribeiro DO Attending Provider on Admission: Romel Souza MD Consults: 09/19/24 Consult to Gastroenterology Stat Comment: Hematemesis, possible gastric outlet obstruction Consulting Provider: Karen Huerta Attending Provider on DC: Yissel Restrepo Discharging Provider: Yissel Restrepo Anticipated date of discharge: 09/20/24 (AMA ) DS: Diagnosis Problem List Completed Was Problem List Reviewed/Reconciled?: Yes Hospital Course Hospital Course Hospital course: Summary: Patient is a 54 year old male with no past significant medical history that presented to the ED 09/18 with chief complaints of abdominal pain and distension for 3 days and was admitted overnight for gastric outlet obstruction who left AMA on 09/20. ED Course: Patient originally presented to the ED 09/18 with a 3 day history of abdominal pain and distension. Patient acknowledged several episodes of non-bloody emesis in the previous 24 hours before arrival to the ED. Patient endorsed chills, but denied fevers. Patient denied previous similar episodes. Patient endorsed tobacco usage, but denied alcohol usage. CT abdomen demonstrated a fluid-filled distended stomach. Pertinent labs include: RBC 4.28 Cl 93 BUN 24 Cr 1 and Ca 10.7. Treatment provided included: Hydromorphone 0.5 mg IVPx1 and Morphine 4mg IVPx1 for pain management, Ondansetron 4 mg IVPx1 for nausea, NS 1L for fluid resuscitation, and placement of a nasogastric tube for gastric decompression. Hospital Course: Patient was admitted for the management and work-up of gastric outlet obstruction. Patient stated about seven episodes of non-bloody emesis for 3 days prior to admission. Patient stated he experienced a bowel movement of dark color a few hours prior to admission. Patient's bedside towel exhibited findings consistent with eren and coffee-ground hematesis. Upper GI series demonstrated findings consistent with delayed gastric emptying and severe peptic ulcer disease with a small central duodenal bulb ulcer. Patient refused NG tube. Patient refused further work up, including EGD with Gastroenterology. Patient is alert and oriented. Review all imgaes with patient prior to discharge and explained risk and benefits. Despite risk of bleeding and , patient decided to leave against medical advice. Pertinent labs: RBC 3.80 Hgb 13.2 Hct 38.7 BUN 21 Cr 0.7. Treatment provided includes: IV Protonix 40 mg BID for GI prophylaxis, IV fluid resuscitation for bowel rest, and Lovenox 40 mg SC QD as per VTE prophylaxis. Gastroenterology consult placed with Dr. Huerta recommended EGD for exploration of gastric outlet obstruction and gastric bleeding. Patient left AGAINST MEDICAL ADVICE 09/20. Case reviewed with attending Dr. Souza and senior resident Dr. Barrera. Tanya Mimi MS-4 - The patient's plan was discussed with attending Dr. Souza. Jessica Barrera MD PGY2 Internal Medicine Time Spent with Patient Time attestation: Total time spent providing and/or coordinating discharge services: Time spent: Greater than 30 minutes Exam Vital Signs Temp Pulse Resp BP Pulse Ox O2 Del Method 99.1 F 99 15 127/92 H 95 Room Air 09/29/24 13:27 09/29/24 14:00 09/29/24 14:00 09/29/24 14:00 09/29/24 14:00 09/29/24 14:00 Narrative Exam General Appearance: Alert & Oriented X3, well-nourished [sex] who is lying in bed in no acute distress HEENT: Skull symmetrical and atraumatic. Conjunctivae pale pink and moist. Pupils equal, round, reactive to light and accommodation (PERRL). External ear without lesion or discharge. Straight, nares patient, mucosa pink, no discharge. No thyroid nodule appreciated. No cervical lymphadenopathy. Cardio: Normal Rate and Rhythm with S1 and S2 heart sounds. No murmurs or extra heart sounds auscultated. No bruits on carotid auscultation. No peripheral edema or cyanosis. Lungs: Symmetric with good expansion. Chest and back non-tender. Breath sounds vesicular without crackles, wheezing or rhonchi Abdomen: diffuse tenderness, mild distention, and Normal Reactive Bowel Sounds Neuro: Alert, cooperative, oriented to person, place, and time. Speech clear. CN grossly intact. Upper motor strength 5/5 and Lower motor strength 5/5. Sensation intact. Discharge Plan Problem List Was Problem List Reviewed/Reconciled?: Yes Plan Patient Disposition: Left Against Medical Advice Patient condition on transfer: Stable Care Plan Goals: Instructions: -patient left against medical advice -Please follow up with your primary care provider within one week of discharge -If your symptoms worsen,please seek immediate medical attention and return to your nearest emergency room -If you do not have a primary care provider, you may follow up at the [facility] at [facility] [address], [place] [address], Prescriptions/Referrals Prescriptions/Med Rec: No Action No Known Home Medications Referrals: No Primary/Family,Physician [Primary Care Provider] - Patient/Caregiver Discharge Instructions Print Language: Uzbek Quality Discharge Quality Measures VTE prophylaxis MD Claytonestshannonation Attmichelle 54-year-old male with no known past medical history presented with abdominal pain and hematemesis. Imaging significant for possible gastric outlet obstruction and plan to admit the patient for acute upper GI bleed with differentials including peptic ulcer disease, malignancy versus less likely esophageal varices. Patient decided to leave AMA. I reviewed above note and agree with findings and plans. I have also personally examined the patient with medicine team and went over assessment and plan with medical team including international operations manager and resident physician.
[2024-09-29 15:36] LABS: Collection Type, Urine Clean Catch
[2024-09-29 15:49] LABS: Bilirubin,Urine Negative (Negative); Blood,Urine Negative (Negative); Clarity,Urine Clear (Clear/Hazy); Color,Urine Yellow (Lt Yel-Yel); Glucose, Urine Negative (Negative); Ketones,Urine Negative (Negative); Leukocyte Esterase,Urine Negative (Negative); Nitrite,Urine Negative (Negative); PH,Urine 7.5 (5.0-7.0); Protein,Urine 1+ (Neg - Trace); RBC,Urine 3 /hpf (0-3); Specific Gravity,Urine 1.040 (1.001-1.035); Squamous Epithelial Cell,Urine 1 /hpf (0-5); Urobilinogen,Urine Negative mg/dL (0.0-1.0); WBC,Urine 2 /hpf (0-5)
[2024-09-29 16:16] LABS: Alcohol, Urine Negative (Negative); Amphetamine/Methamp Scrn,U Positive (Negative); Barbiturate Screen,Urine Negative (Negative); Benzodiazepines Screen,Urine Negative (Negative); Benzoylecgonine Screen, Ur Negative (Negative); Fentanyl Screen,Urine Negative (Negative); Opiate Screen,Urine Negative (Negative); THC Screen,Urine Negative (Negative)
--- NOTE | 2024-09-29 16:20 | ESCONSULT_ITS ---
[facility] Data of Consult Consult date: 09/29/24 Requesting Physician: Mary España DO Primary Care Provider: Physician No Primary/Family Consult Narrative Reason for consult: Continued hematemesis History of present illness: Patient is a 54-year-old male with no stated past medical or surgical history presenting for continued hematemesis; of note, he was here last week for similar symptoms, but left AMA before EGD for potential peptic ulcer disease based on upper GI series could be completed. Since last week he states that the hematemesis has gotten worse, and that he has bloody bowel movements. He also endorses epigastric burning abdominal pain. He did not eat or drink anything different over the past week, and food or liquids do not change symptoms. cc:: cc: Mary España DO Review of Systems Review of Systems Narrative Review of Systems: As per HPI Past Medical History Past Medical History Comments PMH COMMENT: PMH: None PSH: None Social History: 1 PPD smoker for 39 years, no alcohol or drugs Meds Home Medications and Allergies Home Medications ?Medication ?Instructions ?Recorded ?Confirmed ?Type No Known Home Medications 09/19/24 07/04/05 History Allergies Allergy/AdvReac Type Severity Reaction Status Date / Time No Known Allergies Allergy Verified 09/29/24 08:39 Exam Vital Signs Temp Pulse Resp BP Pulse Ox O2 Del Method 98.9 F 100 22 H 115/80 98 Room Air 09/29/24 15:55 09/29/24 15:55 09/29/24 15:55 09/29/24 15:55 09/29/24 15:55 09/29/24 15:55 Routine Cardiovascular Exam Cardiovascular: Present RRR, S1 and S2 Routine Abdominal Exam Abdominal: Present soft, normoactive bowel sounds and tenderness (Epigastric, worse with deep palpation) Results Labs 09/29/24 09:24 09/29/24 09:24 Labs: Short CBC 09/29/24 Range/Units 09:24 WBC 16.4 H (3.8-10.6) Thou/mm3 Hgb 15.4 (13.5-16.0) g/dL Hct 45.2 (41.0-53.0) % Plt Count 631 H D (140-440) Thou/mm3 BMP 09/29/24 09:24 Sodium 136 Potassium 3.3 L Chloride 85 L Carbon Dioxide 35.3 H BUN 22 Creatinine 1.4 H Glucose 197 H Calcium 10.1 Liver Function 09/29/24 Range/Units 09:24 Total Bilirubin 1.0 (0.3-1.2) mg/dL AST 27 (0-34) U/L ALT 22 (10-49) U/L Alkaline Phosphatase 97 (46-116) U/L Albumin 4.8 (3.5-5.0) gm/dL Urine 09/29/24 Range/Units 15:02 Urine Color Yellow (Lt Yel-Yel) Urine Clarity Clear (Clear/Hazy) Urine pH 7.5 H (5.0-7.0) Ur Specific [place] 1.040 H (1.001-1.035) Urine Protein 1+ A (Neg - Trace) Urine Glucose (UA) Negative (Negative) Assessment and Plan Additional Assessment & Plan Additional Plan: Patient is a 54-year-old male with no known past medical or surgical history presenting with continued hematemesis. He was recently admitted to [facility] from 09/18/2024 to 09/20/2024 for similar symptoms, but left AMA before EGD could be performed. #Suspected peptic ulcer disease, hematemesis, blood in bowel movement HGB is 15.4, NG tube in place, GI series from previous visit shows severe active peptic ulcer disease in the duodenum. No fecal occult blood test done. Plan: Keep NPO, intermittent suction on NG tube, protonix 8mg/hr drip, consent for fiberoptic esophogastroduodenoscopy with possible biopsy/therapeutic intervetion under IV moderate sedation tomorrow attending physician attestation Patient examined laboratory data reviewed imaging studies reviewed this patient signed out AGAINST MEDICAL ADVICE last week Consent obtained for fiberoptic esophagogastroduodenoscopy with possible biopsy possible therapeutic intervention under intravenous moderate sedation NGT to intermittent Gomco suction Thank you for the opportunity to participate in care of this patient
[2024-09-29 20:23] LABS: Hematocrit 35.6 % (41.0-53.0); Hemoglobin 12.6 g/dL (13.5-16.0)
[2024-09-29] MEDS: HYDROmorphone INJ 2 MG/ML VIAL 1 MG IVP (20:34)
[2024-09-30] VITALS (25 sets, daily range): BP systolic 99–124; BP diastolic 60–94; PULSE 73–101; RESP 12–20; TEMP 36.1–36.7; O2SAT 94–99
[2024-09-30] MEDS: RINGERS LACTATED 1000 ML 1,000 ML 100 ML IV (00:01)
[2024-09-30 02:20] LABS: Hematocrit 32.8 % (41.0-53.0); Hemoglobin 11.7 g/dL (13.5-16.0)
[2024-09-30] MEDS: PANTOPRAZOLE/NS 80MG IV PREMIX 80 MG/100 ML BAG 10 MG IV ×2 (04:39→15:39)
[2024-09-30 06:14] LABS: Basophils # (Auto) 0.0 Thou/mm3 (0.0-0.2); Basophils % (Auto) 0 % (0-2.5); Eosinophils # (Auto) 0.0 Thou/mm3 (0.0-0.5); Eosinophils % (Auto) 0 % (0-10); Hematocrit 33.0 % (41.0-53.0); Hemoglobin 11.7 g/dL (13.5-16.0); Immature Granulocytes Auto 0.03 Thou/mm3 (0.00-0.00); Lymphocytes # (Auto) 1.3 Thou/mm3 (1.0-4.8); Lymphocytes % (Auto) 12 % (10-50); Mean Corpuscular HGB Conc 35.5 g/dl (31.0-37.0); Mean Corpuscular Hemoglobin 34.9 pg (25.0-35.0); Mean Corpuscular Volume 99 fL (80-100); Monocytes # (Auto) 0.6 Thou/mm3 (0.0-0.8); Monocytes % (Auto) 5 % (0-12); Neutrophils # (Auto) 8.8 Thou/mm3 (1.8-7.7); Neutrophils % (Auto) 82 % (37-80); Nucleated Red Blood Cell # 0.00 Thou/mm3 (0.00-0.00); Nucleated Red Blood Cell % 0 /100 WBC (0); Platelet Count 456 Thou/mm3 (140-440); RDW Standard Deviation 46.2 fL (35.1-43.9); Red Blood Count 3.35 Miln/mm3 (4.50-5.90); White Blood Count 10.8 Thou/mm3 (3.8-10.6)
[2024-09-30 06:24] LABS: INR 1.0 (0.9-1.3); Partial Thromboplastin Time 33.8 Seconds (22.0-36.0); Prothrombin Time 11.3 Seconds (9.0-12.2)
[2024-09-30 06:45] LABS: Alanine Aminotransferase 13 U/L (10-49); Albumin, Serum 3.7 gm/dL (3.5-5.0); Albumin/Globulin Ratio 1.5 (1.2-2.2); Alkaline Phosphatase 71 U/L (46-116); Anion Gap 11 (7-16); Aspartate Amino Transferase 17 U/L (0-34); BUN/Creatinine Ratio 27 Ratio (12-20); Bilirubin,Total 0.8 mg/dL (0.3-1.2); Blood Urea Nitrogen 19 mg/dL (9-23); Calcium 8.5 mg/dL (8.3-10.6); Calcium (Corrected) 8.7 mg/dL (8.5-10.1); Carbon Dioxide 27.5 mMol/L (20.0-31.0); Cardiac Risk Estimate 3.1 RATIO (4.0-6.7); Chloride 98 mMol/L (98-107); Cholesterol 113 mg/dL (132-200); Creatinine (Component) 0.7 mg/dL (0.6-1.3); Estimated Creatinine Clearance 103.0 mL/min (>60); Globulin 2.4 gm/dL (2.3-3.5); Glucose 88 mg/dL (74-106); HDL Cholesterol 36 mg/dL (40-60); LDL Cholesterol,Calculated 57 mg/dL (0-130); Magnesium 1.4 mg/dL (1.6-2.6); Osmolality,Calculated 273 (275-295); Phosphorous 2.2 mg/dL (2.4-5.1); Potassium 3.7 mMol/L (3.4-5.1); Sodium 136 mMol/L (136-145); Total Protein 6.1 gm/dL (5.7-8.2); Triglycerides 99 mg/dL (30-150); eGFR > 60 See Note
[2024-09-30] MEDS: Magnesium Sulfate 4 GM Ivpb 4 GM/50 ML BAG IV (08:03)
--- NOTE | 2024-09-30 10:22 | PC.SS ---
Patient Trevor Cannon is a 54 Year old male admitted for Hematemisis. SS met with patient at bedside to discuss discharge plan and verify demographic information. Patient reports she lives at home with friends. Patient reports his surrogate decision maker is his friend, Sujit Bootheuzair [phone]. Patient reports he is able to complete all ADL's independently. Patient reports his pharmacy of choice is [facility]. Patient does not have a PCP. At time of discharge patient will return home. Friend will provide transportation. Discharge plan; Home Next of Kin: Friend Sujit Bootheuzair [phone]
[2024-09-30] MEDS: HYDROmorphone INJ 2 MG/ML VIAL 1 MG IVP ×2 (11:24→15:38)
--- NOTE | 2024-09-30 11:25 | ESPR_ITS ---
<Statement entered by Christian Euceda MD - 09/30/24 14:31> Patient seen and examined at bedside. I discussed and supervised with the summer internship physician who took care of this patient. I personally saw and examined the patient. I agree with most of the assessment and plan. Patient continued to have suction via NG tube, no vomiting episodes overnight. CBC showed decrease in all cell lines with resulting anemia, suspect previous hemoconcentration resolved with IV hydration. On admission patient was symptomatic with SOB, fatigue, dizziness on standing, 1 unit PRBCs transfused. Pending EGD, planned for today. TAYLOR resolved. Plan of care discussed with attending Dr. España. Christian Euceda MD PGY-2 Documentation for date of: 09/30/24 Subjective Subjective Interval history: Patient seen and evaluated this morning. He denies any vomiting since last night and has not had a bowel movement since admission. He did urinate and denies hematuria. He has not yet received the transfusion but states that he feels better overall compared to admission. He still endorses epigastric abdominal pain, localized in the same area, but reports that it is gradually improving. He denies nausea today. He continues to feel lightheaded upon standing, though it is less severe than yesterday. He denies any chills, fevers, chest pain, or shortness of breath. Exam Vital Signs Temp Pulse Resp BP Pulse Ox O2 Del Method 97.2 F 81 18 110/75 95 Room Air 09/30/24 07:31 09/30/24 08:00 09/30/24 07:31 09/30/24 07:31 09/30/24 07:31 09/30/24 07:31 Narrative Exam Gen: Alert, tired-appearing, NG tube in place with bloody output HEENT: Pale conjunctiva, no scleral icterus CV: Tachycardic, regular rhythm Lungs: Clear to auscultation bilaterally Abdomen: Mild distension, epigastric tenderness, Normo active bowel sounds Ext: No edema Neuro: Alert and oriented x3, no focal deficits Objective Labs 10/01/24 07:07 10/01/24 04:43 Labs: Laboratory Results - last 24 hr 09/29/24 09/29/24 09/30/24 15:02 20:14 02:01 WBC RBC Hgb 12.6 L D 11.7 L Hct 35.6 L 32.8 L MCV MCH MCHC RDW Std Deviation Plt Count Neut % (Auto) Lymph % (Auto) [place] % (Auto) Eos % (Auto) Baso % (Auto) Neut # (Auto) Lymph # (Auto) [place] # (Auto) Eos # (Auto) Baso # (Auto) Immature Gran # (Auto) Absolute Nucleated RBC Immature Gran % Nucleated RBC % PT INR APTT Sodium Potassium Chloride Carbon Dioxide Anion Gap BUN Creatinine Estim Creat Clear Calc eGFR BUN/Creatinine Ratio Glucose Calculated Osmolality Calcium Corrected Calcium Phosphorus Magnesium Total Bilirubin AST ALT Alkaline Phosphatase Total Protein Albumin Globulin Albumin/Globulin Ratio Triglycerides Cholesterol LDL Cholesterol, Calc HDL Cholesterol Cholesterol/HDL Ratio Ur Collection Type Clean Catch Urine Color Yellow Urine Clarity Clear Urine pH 7.5 H Ur Specific [place] 1.040 H Urine Protein 1+ A Urine Glucose (UA) Negative Urine Ketones Negative Urine Blood Negative Urine Nitrite Negative Urine Bilirubin Negative Urine Urobilinogen (Auto) Negative Ur Leukocyte Esterase Negative Urine RBC 3 Urine WBC 2 Ur Squamous Epith Cells 1 Urine Bacteria None Urine Opiates Screen Negative Urine Fentanyl Screen Negative Ur Barbiturates Screen Negative U Amphetamin/Meth Scrn Positive A U Benzodiazepines Scrn Negative U Cocaine Metab Screen Negative U Marijuana (THC) Screen Negative Urine Alcohol Negative 09/30/24 04:36 WBC 10.8 H D RBC 3.35 L Hgb 11.7 L Hct 33.0 L MCV 99 MCH 34.9 MCHC 35.5 RDW Std Deviation 46.2 H Plt Count 456 H D Neut % (Auto) 82 H Lymph % (Auto) 12 [place] % (Auto) 5 Eos % (Auto) 0 Baso % (Auto) 0 Neut # (Auto) 8.8 H Lymph # (Auto) 1.3 [place] # (Auto) 0.6 Eos # (Auto) 0.0 Baso # (Auto) 0.0 Immature Gran # (Auto) 0.03 H Absolute Nucleated RBC 0.00 Immature Gran % 0 Nucleated RBC % 0 PT 11.3 INR 1.0 APTT 33.8 Sodium 136 Potassium 3.7 Chloride 98 Carbon Dioxide 27.5 Anion Gap 11 BUN 19 Creatinine 0.7 D Estim Creat Clear Calc 103.0 eGFR > 60 BUN/Creatinine Ratio 27 H Glucose 88 D Calculated Osmolality 273 L Calcium 8.5 D Corrected Calcium 8.7 Phosphorus 2.2 L Magnesium 1.4 L Total Bilirubin 0.8 AST 17 ALT 13 Alkaline Phosphatase 71 D Total Protein 6.1 Albumin 3.7 D Globulin 2.4 Albumin/Globulin Ratio 1.5 Triglycerides 99 Cholesterol 113 L LDL Cholesterol, Calc 57 HDL Cholesterol 36 L Cholesterol/HDL Ratio 3.1 L Ur Collection Type Urine Color Urine Clarity Urine pH Ur Specific [place] Urine Protein Urine Glucose (UA) Urine Ketones Urine Blood Urine Nitrite Urine Bilirubin Urine Urobilinogen (Auto) Ur Leukocyte Esterase Urine RBC Urine WBC Ur Squamous Epith Cells Urine Bacteria Urine Opiates Screen Urine Fentanyl Screen Ur Barbiturates Screen U Amphetamin/Meth Scrn U Benzodiazepines Scrn U Cocaine Metab Screen U Marijuana (THC) Screen Urine Alcohol Quality Measures Quality Measures VTE prophylaxis Assessment & Plan Assessment Current Active Medications: Generic Name Dose Route Start Last Admin Trade Name Freq PRN Reason Stop Dose Admin Hydromorphone HCl 1 mg 09/29/24 12:23 09/29/24 20:34 Hydromorphone Inj 2 Mg/Ml Vial IVP 10/04/24 12:22 1 mg Q4HR PRN Administration PAIN SCALE 4-10(Mod-Sev Pantoprazole Sodium 80 mg in 100 mls @ 10 mls/hr 09/29/24 16:10 09/30/24 04:39 Protonix/Ns 80mg Iv Premix IV 10/02/24 14:09 10 mls/hr Q10H CHASITY Administration Plan 54-year-old male with no known medical history presenting with hematemesis and epigastric abdominal pain, found to have suspected peptic ulcer disease with gastric outlet obstruction and ongoing GI blood loss. Pending EGD. #Upper GI Bleed secondary to suspected PUD with gastric outlet obstruction #Anemia secondary to GI bleed Patient with ongoing hematemesis on presentation, history of severe duodenal PUD and gastric outlet obstruction. Now hemodynamically stable, no further hematemesis overnight. Hgb downtrending from 15.4 to 11.7, likely due to initial hemoconcentration with improvement in hydration; drop now reflects true level. Patient also reports dizziness and lightheadedness, consistent with symptomatic anemia despite relatively preserved hemoglobin, warranting transfusion. Known history of severe duodenal PUD with gastric outlet obstruction on prior UGI series. Labs: Hgb 15.4 --> 12.6 --> 11.7, Plt 456, WBC 10.8 CT A/P showing fluid-distended stomach Plan: * Transfuse 1 unit PRBC for symptomatic anemia * NPO, continue NG decompression to intermittent Gomco suction * Protonix drip 8 mg/hr * GI re-consulted (Dr. Huerta), consent obtained for EGD today * Monitor serial CBCs * Type and screen active #Abdominal Pain Likely secondary to retained gastric contents and mucosal inflammation from PUD. Symptoms improving. Plan: * Continue NG decompression * Pain control as needed (avoid NSAIDs) * Reassess after EGD #Acute Kidney Injury (Resolved) Cr peaked at 1.4 on admission but has since improved to baseline of 0.7 with IV hydration, consistent with transient [id number] TAYLOR. Plan: * Continue IV fluids * Monitor renal function * Avoid nephrotoxic agents * No nephrology needs at this time #Hypokalemia (resolved) K+ 3.7 Yesterday 3.3 likely from GI losses and NG suction Plan: * Repleted yesterday * Continue daily labs, replete PRN #Methamphetamine use U-tox positive, unclear if contributing to current presentation Plan: * Glass Finisher patient if clinically appropriate * Monitor for complications (agitation, vasospasm, etc.) #Volume depletion / Orthostatic symptoms Likely related to GI fluid loss and poor PO intake prior to admission Plan: * Continue IV hydration * Monitor orthostatics * Reassess post-transfusion Health Maintenance: Disposition: Med-Surg, continue inpatient for EGD and bleed management Feeding: NPO DVT Prophylaxis: SCDs only due to active GI bleed GI Prophylaxis: Protonix 8 mg/hr IV drip Code Status: Full Code ----- Plan discussed with attending physician Dr. España and senior resident Dr. Obdulia MD PGY-1 Internal Medicine Attending Provider Attestation/Addendum IMary, DO, attest that I was physically present for the jimenez portions of the service and evaluated the patient with the resident and I reviewed and discussed the case with the resident and agree with the resident's findings and plans of care as documented above Patient seen and evaluated this AM. Patient remains on NG tube to LIS with coffee ground emesis. Pending endoscopy this evening. No acute events overnight otherwise.Will transfuse one unit of pRBCs due to concern for blood loss given drop in H/H.
--- NOTE | 2024-09-30 11:55 | PC.SS ---
SS follow up note; Egd today, patient will discharge home when medically cleared.
[2024-09-30 16:56] LABS: Hematocrit 34.4 % (41.0-53.0); Hemoglobin 12.1 g/dL (13.5-16.0)
[2024-09-30] MEDS: SUCRALFATE SUSP 1 GM/10 ML UDC PO (21:24)
[2024-09-30] MEDS: MG HYD/AL HYD/SIME (Maalox Reg) SUSP 30 ML UDC 15 ML PO (21:24)
[2024-10-01] VITALS (9 sets, daily range): BP systolic 109–126; BP diastolic 77–81; PULSE 62–89; RESP 15–19; TEMP 36.1–36.4; O2SAT 94–99
[2024-10-01] MEDS: PANTOPRAZOLE/NS 80MG IV PREMIX 80 MG/100 ML BAG 10 MG IV ×2 (04:21→13:57)
[2024-10-01] MEDS: SUCRALFATE SUSP 1 GM/10 ML UDC PO ×4 (05:20→20:19)
[2024-10-01] MEDS: MG HYD/AL HYD/SIME (Maalox Reg) SUSP 30 ML UDC 15 ML PO (05:20)
[2024-10-01 06:09] LABS: Alanine Aminotransferase 10 U/L (10-49); Albumin, Serum 3.7 gm/dL (3.5-5.0); Albumin/Globulin Ratio 1.4 (1.2-2.2); Alkaline Phosphatase 74 U/L (46-116); Anion Gap 11 (7-16); Aspartate Amino Transferase 20 U/L (0-34); BUN/Creatinine Ratio 26 Ratio (12-20); Bilirubin,Total 0.7 mg/dL (0.3-1.2); Blood Urea Nitrogen 21 mg/dL (9-23); Calcium 8.7 mg/dL (8.3-10.6); Calcium (Corrected) 8.9 mg/dL (8.5-10.1); Carbon Dioxide 23.5 mMol/L (20.0-31.0); Chloride 101 mMol/L (98-107); Creatinine (Component) 0.8 mg/dL (0.6-1.3); Estimated Creatinine Clearance 89.9 mL/min (>60); Globulin 2.6 gm/dL (2.3-3.5); Glucose 61 mg/dL (74-106); Magnesium 1.7 mg/dL (1.6-2.6); Osmolality,Calculated 271 (275-295); Phosphorous 2.5 mg/dL (2.4-5.1); Potassium 3.9 mMol/L (3.4-5.1); Sodium 135 mMol/L (136-145); Total Protein 6.3 gm/dL (5.7-8.2); eGFR > 60 See Note
[2024-10-01 07:44] LABS: Basophils # (Auto) 0.0 Thou/mm3 (0.0-0.2); Basophils % (Auto) 1 % (0-2.5); Eosinophils # (Auto) 0.0 Thou/mm3 (0.0-0.5); Eosinophils % (Auto) 1 % (0-10); Hematocrit 36.8 % (41.0-53.0); Hemoglobin 12.7 g/dL (13.5-16.0); Immature Granulocytes Auto 0.02 Thou/mm3 (0.00-0.00); Lymphocytes # (Auto) 1.3 Thou/mm3 (1.0-4.8); Lymphocytes % (Auto) 15 % (10-50); Mean Corpuscular HGB Conc 34.5 g/dl (31.0-37.0); Mean Corpuscular Hemoglobin 33.5 pg (25.0-35.0); Mean Corpuscular Volume 97 fL (80-100); Monocytes # (Auto) 0.8 Thou/mm3 (0.0-0.8); Monocytes % (Auto) 10 % (0-12); Neutrophils # (Auto) 6.5 Thou/mm3 (1.8-7.7); Neutrophils % (Auto) 74 % (37-80); Nucleated Red Blood Cell # 0.00 Thou/mm3 (0.00-0.00); Nucleated Red Blood Cell % 0 /100 WBC (0); Platelet Count 419 Thou/mm3 (140-440); RDW Standard Deviation 48.8 fL (35.1-43.9); Red Blood Count 3.79 Miln/mm3 (4.50-5.90); White Blood Count 8.8 Thou/mm3 (3.8-10.6)
[2024-10-01] MEDS: RINGERS LACTATED 1000 ML 1,000 ML 75 ML IV (07:54)
[2024-10-01] MEDS: Magnesium Sulfate 2 GM Ivpb 2 GM/50 ML BAG IV (07:54)
[2024-10-01] MEDS: DEXTROSE 50%-WATER INJ 50 ML SYRINGE IVP (07:55)
[2024-10-01] MEDS: MG HYD/AL HYD/SIME (Maalox Reg) SUSP 30 ML UDC 15 ML NG ×3 (11:28→20:19)
[2024-10-01] MEDS: NICOTINE PATCH 14 MG/24 HR PATCH.TD24 TOP (11:28)
--- NOTE | 2024-10-01 14:27 | PC.SS ---
SS follow up note; Surgery Consult pending. Patient will discharge home when medically cleared.
[2024-10-01] MEDS: DEXTROSE 5%-LACTATED RINGERS 1,000 ML 50 ML IV (16:26)
[2024-10-01] MEDS: DEXTROSE 50%-WATER INJ 50 ML SYRINGE 25 ML IV (16:33)
--- NOTE | 2024-10-01 16:45 | PC.NURSE ---
Dr. Madrid at bedside
[2024-10-01] MEDS: DEXTROSE 5%-LACTATED RINGERS 1,000 ML 100 ML IV (17:23)
--- NOTE | 2024-10-01 17:43 | ESPR_ITS ---
<Statement entered by Christian Euceda MD - 10/01/24 18:34> Patient seen and examined at bedside. I discussed and supervised with the manager internet retails sales physician who took care of this patient. I personally saw and examined the patient. I agree with most of the assessment and plan. EGD showed significant duodenal ulcer with surronding edema and pyloric channel stenosis. Remains NPO, with NG tube to LIS. Started Maalox and carafate. Patient denies hematemesis or bloody stools. Notably agitated, wishes to no longer be NPO, patients condition and reason for treatment was explained and he verbalized understanding. Plan of care discussed with attending Dr. España. Christian Euceda MD PGY-2 Documentation for date of: 10/01/24 Subjective Subjective Interval history: Patient seen and evaluated this morning. He denies any vomiting or blood in his vomit or stool since the EGD. He reports that his abdominal pain has subsided and he is feeling overall better. He no longer feels lightheaded or dizzy when standing. He denies fever, chills, or night sweats. He also denies chest pain or shortness of breath. He states he slept well overnight and has not experienced any side effects from the new medications, including Maalox or Carafate. During afternoon I went back to see the patient around again patient was agitated and was complaining he wants to eat and drink water does not want to remain n.p.o. I explained to him why he is n.p.o. and still remained agitated. Exam Vital Signs Temp Pulse Resp BP Pulse Ox O2 Del Method O2 Flow Rate 97.2 F 75 15 123/80 96 Room Air 3 10/01/24 16:00 10/01/24 16:08 10/01/24 16:00 10/01/24 16:00 10/01/24 16:00 10/01/24 04:00 09/30/24 20:40 Narrative Exam Gen: Alert, tired-appearing, NG tube in place with bloody output HEENT: Pale conjunctiva, no scleral icterus CV: Tachycardic, regular rhythm Lungs: Clear to auscultation bilaterally Abdomen: Mild distension, epigastric tenderness, Normo active bowel sounds Ext: No edema Neuro: Alert and oriented x3, no focal deficits Objective Labs 10/02/24 04:54 10/02/24 04:54 Labs: Laboratory Results - last 24 hr 10/01/24 10/01/24 04:43 07:07 WBC 8.8 RBC 3.79 L Hgb 12.7 L Hct 36.8 L MCV 97 MCH 33.5 MCHC 34.5 RDW Std Deviation 48.8 H Plt Count 419 D Neut % (Auto) 74 Lymph % (Auto) 15 [place] % (Auto) 10 Eos % (Auto) 1 Baso % (Auto) 1 Neut # (Auto) 6.5 Lymph # (Auto) 1.3 [place] # (Auto) 0.8 Eos # (Auto) 0.0 Baso # (Auto) 0.0 Immature Gran # (Auto) 0.02 H Absolute Nucleated RBC 0.00 Immature Gran % 0 Nucleated RBC % 0 Sodium 135 L Potassium 3.9 Chloride 101 Carbon Dioxide 23.5 Anion Gap 11 BUN 21 Creatinine 0.8 Estim Creat Clear Calc 89.9 eGFR > 60 BUN/Creatinine Ratio 26 H Glucose 61 L Calculated Osmolality 271 L Calcium 8.7 Corrected Calcium 8.9 Phosphorus 2.5 Magnesium 1.7 Total Bilirubin 0.7 AST 20 ALT 10 Alkaline Phosphatase 74 Total Protein 6.3 Albumin 3.7 Globulin 2.6 Albumin/Globulin Ratio 1.4 Quality Measures Quality Measures VTE prophylaxis Assessment & Plan Assessment Current Active Medications: Generic Name Dose Route Start Last Admin Trade Name Freq PRN Reason Stop Dose Admin Al Hydrox/Mg Hydrox/Simethicone 15 ml 10/01/24 12:00 10/01/24 16:26 Mg Hyd/Al Hyd/[place]var[place] (Maalox Reg) Susp 30 Ml Udc NG 10/31/24 11:59 15 ml QID CHASITY Administration Dextrose 25 ml 10/01/24 07:34 10/01/24 16:33 Dextrose 50%-Water Inj 50 Ml Syringe IV 10/31/24 07:33 25 ml Q15MIN PRN Administration BG 50-70 responsive npo pt Dextrose 50 ml 10/01/24 07:34 Dextrose 50%-Water Inj 50 Ml Syringe IV 10/31/24 07:33 Q15MIN PRN BG <50 OR BG <70 & pt unresponsive Glucagon 1 mg 10/01/24 07:34 Glucagon Inj 1 Mg Vial IM Q15MIN PRN BG <70, and no IV access Hydromorphone HCl 1 mg 09/29/24 12:23 09/30/24 15:38 Hydromorphone Inj 2 Mg/Ml Vial IVP 10/04/24 12:22 1 mg Q4HR PRN Administration PAIN SCALE 4-10(Mod-Sev Pantoprazole Sodium 80 mg in 100 mls @ 10 mls/hr 09/29/24 16:10 10/01/24 13:57 Protonix/Ns 80mg Iv Premix IV 10/02/24 14:09 10 mls/hr Q10H CHASITY Administration Dextrose/Lactated Ringer's 1,000 mls @ 100 mls/hr 10/01/24 16:36 10/01/24 17:23 D5-Lr IV 10/31/24 16:35 100 mls/hr .Q10H CHASITY Administration Nicotine 14 mg 10/01/24 11:15 10/01/24 11:28 Nicotine Patch 14 Mg/24 Hr Patch.Td24 TOP 10/31/24 11:14 14 mg QDAY CHASITY Administration Sucralfate 1 gm 10/01/24 12:00 10/01/24 16:26 Sucralfate Susp 1 Gm/10 Ml Udc PO 10/31/24 11:59 1 gm QID CHASITY Administration Plan 54-year-old male with no known medical history presenting with hematemesis and epigastric abdominal pain, found to have suspected peptic ulcer disease with gastric outlet obstruction and ongoing GI blood loss. EGD completed. #Upper GI Bleed secondary to large duodenal ulcer with pyloric channel stenosis #Anemia secondary to GI bleed Patient with ongoing hematemesis on presentation, history of severe duodenal PUD and gastric outlet obstruction. EGD on 09/30 revealed a large duodenal ulcer covering nearly the entire duodenal bulb, pyloric channel stenosis with edema, and associated gastritis. No visible bleeding vessel seen at the ulcer base. Now hemodynamically stable, no further hematemesis. Hgb downtrending from 15.4 to 11.7, likely due to initial hemoconcentration with improvement in hydration; drop now reflects true level. Patient previously reported dizziness and lightheadedness, consistent with symptomatic anemia despite relatively preserved hemoglobin, now resolved per patient this morning. Labs: Hgb 15.4 -> 12.6 -> 11.7, Plt 456, WBC 10.8 CT A/P showing fluid-distended stomach EGD: Large duodenal ulcer, pyloric channel stenosis, biopsies taken from antrum and cardia Plan: * Transfused 1 unit PRBC yesterday for symptomatic anemia * Continue NPO * Continue NG decompression to intermittent Gomco suction * Continue Protonix drip 8 mg/hr * Start Maalox 15 mL PO q4h and Carafate suspension 1g PO QID * Await biopsy results * Monitor serial CBCs * Surgical team consulted per GI due to high-risk ulcer in case of rebleed #Abdominal Pain Likely secondary to retained gastric contents and mucosal inflammation from PUD. Symptoms resolved. Plan: * Continue NG decompression * Pain control as needed (avoid NSAIDs) * Monitor for return of symptoms or obstruction #Acute Kidney Injury (Resolved) Cr peaked at 1.4 on admission but has since improved to baseline of 0.7 with IV hydration, consistent with transient [id number] TAYLOR. Plan: * Continue IV fluids * Monitor renal function * Avoid nephrotoxic agents * No nephrology needs at this time #Hypokalemia (resolved) K+ 3.7 Yesterday 3.3 likely from GI losses and NG suction Plan: * Repleted yesterday * Continue daily labs, replete PRN #Methamphetamine use U-tox positive, unclear if contributing to current presentation Plan: * Rate Examiner patient if clinically appropriate * Monitor for complications (agitation, vasospasm, etc.) #Volume depletion / Orthostatic symptoms (Resolved) Likely related to GI fluid loss and poor PO intake prior to admission. Patient denies lightheadedness or dizziness this morning. Plan: * Continue IV hydration * Monitor orthostatics * Reassess post-transfusion Health Maintenance: Disposition: Med-Surg, continue inpatient for post-EGD monitoring and biopsy results Feeding: NPO DVT Prophylaxis: SCDs only due to active GI bleed GI Prophylaxis: Protonix 8 mg/hr IV drip Code Status: Full Code ----- Plan discussed with attending physician Dr. España and senior resident Dr. Obdulia MD PGY-1 Internal Medicine Attending Provider Attestation/Addendum Mary Rosen, DO, attest that I was physically present for the jimenez portions of the service and evaluated the patient with the resident and I reviewed and discussed the case with the resident and agree with the resident's findings and plans of care as documented above Patient seen and eval this a.m. Patient underwent endoscopy yesterday during which he was found to have esophageal ulcers, gastritis, pyloric channel stenosis with edema and a large duodenal ulcer covering almost entire duodenal bulb with edema causing narrowing of the junction of duodenal bulb and descending duodenum. Patient is to maintain NG tube in place on low intermittent suction. Maalox and Carafate to be given 4 times daily. Will clamp NG tube for an hour after medication is given with for restarting suction. Patient is very agitated and states that he wants to go home and eat. Patient was seen wandering into other patient's room and drinking their sodas. Explained to patient that he will need a surgical evaluation due to significance of pyloric stenosis. Surgery has been consulted. Will follow-up with recommendations. Patient otherwise denies any active epigastric pain or, discomfort, nausea or vomiting.
[2024-10-01] MEDS: HYDROmorphone INJ 2 MG/ML VIAL 1 MG IVP (20:19)
--- NOTE | 2024-10-01 21:11 | ESPR_ITS ---
Documentation for date of: 10/01/24 Subjective Subjective Interval history: Case discussed with the insurance billing specialist Dr. Kohli Patient will benefit from either Billroth I or Billroth II surgical intervention as the ulcer is huge If he starts bleeding and be more difficult surgery as the duodenal ulcer covers the entire duodenal bulb Exam Vital Signs Temp Pulse Resp BP Pulse Ox O2 Del Method O2 Flow Rate 97.1 F 77 15 126/80 95 Room Air 3 10/01/24 20:00 10/01/24 20:00 10/01/24 20:00 10/01/24 20:00 10/01/24 20:00 10/01/24 20:00 09/30/24 20:40 Objective Labs 10/01/24 07:07 10/01/24 04:43 Labs: Laboratory Results - last 24 hr 10/01/24 10/01/24 04:43 07:07 WBC 8.8 RBC 3.79 L Hgb 12.7 L Hct 36.8 L MCV 97 MCH 33.5 MCHC 34.5 RDW Std Deviation 48.8 H Plt Count 419 D Neut % (Auto) 74 Lymph % (Auto) 15 [place] % (Auto) 10 Eos % (Auto) 1 Baso % (Auto) 1 Neut # (Auto) 6.5 Lymph # (Auto) 1.3 [place] # (Auto) 0.8 Eos # (Auto) 0.0 Baso # (Auto) 0.0 Immature Gran # (Auto) 0.02 H Absolute Nucleated RBC 0.00 Immature Gran % 0 Nucleated RBC % 0 Sodium 135 L Potassium 3.9 Chloride 101 Carbon Dioxide 23.5 Anion Gap 11 BUN 21 Creatinine 0.8 Estim Creat Clear Calc 89.9 eGFR > 60 BUN/Creatinine Ratio 26 H Glucose 61 L Calculated Osmolality 271 L Calcium 8.7 Corrected Calcium 8.9 Phosphorus 2.5 Magnesium 1.7 Total Bilirubin 0.7 AST 20 ALT 10 Alkaline Phosphatase 74 Total Protein 6.3 Albumin 3.7 Globulin 2.6 Albumin/Globulin Ratio 1.4 Impressions Impression: Large duodenal ulcer causing gastric outlet obstruction Plan Continue current management Case discussed with the insurance billing specialist Assessment & Plan A&P Narrative Patient is a 54-year-old male with no known past medical or surgical history presenting with continued hematemesis. He was recently admitted to [facility] from 09/18/2024 to 09/20/2024 for similar symptoms, but left AMA before EGD could be performed. #Suspected peptic ulcer disease, hematemesis, blood in bowel movement HGB is 15.4, NG tube in place, GI series from previous visit shows severe active peptic ulcer disease in the duodenum. No fecal occult blood test done. Plan: Keep NPO, intermittent suction on NG tube, protonix 8mg/hr drip, consent for fiberoptic esophogastroduodenoscopy with possible biopsy/therapeutic intervetion under IV moderate sedation tomorrow attending physician attestation Patient examined laboratory data reviewed imaging studies reviewed this patient signed out AGAINST MEDICAL ADVICE last week Consent obtained for fiberoptic esophagogastroduodenoscopy with possible biopsy possible therapeutic intervention under intravenous moderate sedation NGT to intermittent Gomco suction Thank you for the opportunity to participate in care of this patient Time Spent With Patient Time: Total time spent is greater than 50% in coordination of care (as documented) at patient's floor/unit and/or counseling patient:
[2024-10-02] VITALS: BP 116/72; PULSE 60; PULSE 61; RESP 17; TEMP 36.2; O2SAT 98
[2024-10-02] MEDS: HYDROmorphone INJ 2 MG/ML VIAL 1 MG IVP ×2 (00:24→05:07)
[2024-10-02] MEDS: PANTOPRAZOLE/NS 80MG IV PREMIX 80 MG/100 ML BAG 10 MG IV (00:24)
[2024-10-02] MEDS: DEXTROSE 5%-LACTATED RINGERS 1,000 ML 100 ML IV (03:08)
[2024-10-02 04:00] VITALS: BP 127/83; PULSE 62; PULSE 74; RESP 19; TEMP 36.6; O2SAT 98
[2024-10-02] MEDS: MG HYD/AL HYD/SIME (Maalox Reg) SUSP 30 ML UDC 15 ML NG (05:07)
[2024-10-02] MEDS: SUCRALFATE SUSP 1 GM/10 ML UDC PO (05:07)
[2024-10-02 06:25] LABS: Basophils # (Auto) 0.0 Thou/mm3 (0.0-0.2); Basophils % (Auto) 1 % (0-2.5); Eosinophils # (Auto) 0.1 Thou/mm3 (0.0-0.5); Eosinophils % (Auto) 1 % (0-10); Hematocrit 34.8 % (41.0-53.0); Hemoglobin 12.2 g/dL (13.5-16.0); Immature Granulocytes Auto 0.01 Thou/mm3 (0.00-0.00); Lymphocytes # (Auto) 1.1 Thou/mm3 (1.0-4.8); Lymphocytes % (Auto) 21 % (10-50); Mean Corpuscular HGB Conc 35.1 g/dl (31.0-37.0); Mean Corpuscular Hemoglobin 34.2 pg (25.0-35.0); Mean Corpuscular Volume 98 fL (80-100); Monocytes # (Auto) 0.5 Thou/mm3 (0.0-0.8); Monocytes % (Auto) 9 % (0-12); Neutrophils # (Auto) 3.4 Thou/mm3 (1.8-7.7); Neutrophils % (Auto) 68 % (37-80); Nucleated Red Blood Cell # 0.00 Thou/mm3 (0.00-0.00); Nucleated Red Blood Cell % 0 /100 WBC (0); Platelet Count 462 Thou/mm3 (140-440); RDW Standard Deviation 47.2 fL (35.1-43.9); Red Blood Count 3.57 Miln/mm3 (4.50-5.90); White Blood Count 5.1 Thou/mm3 (3.8-10.6)
[2024-10-02 06:48] LABS: INR 1.0 (0.9-1.3); Partial Thromboplastin Time 32.5 Seconds (22.0-36.0); Prothrombin Time 11.0 Seconds (9.0-12.2)
[2024-10-02 07:04] LABS: Alanine Aminotransferase 8 U/L (10-49); Albumin, Serum 3.5 gm/dL (3.5-5.0); Albumin/Globulin Ratio 1.5 (1.2-2.2); Alkaline Phosphatase 64 U/L (46-116); Anion Gap 11 (7-16); Aspartate Amino Transferase 14 U/L (0-34); BUN/Creatinine Ratio 21 Ratio (12-20); Bilirubin,Total 0.5 mg/dL (0.3-1.2); Blood Urea Nitrogen 15 mg/dL (9-23); Calcium 8.4 mg/dL (8.3-10.6); Calcium (Corrected) 8.8 mg/dL (8.5-10.1); Carbon Dioxide 28.5 mMol/L (20.0-31.0); Chloride 99 mMol/L (98-107); Creatinine (Component) 0.7 mg/dL (0.6-1.3); Estimated Creatinine Clearance 102.7 mL/min (>60); Globulin 2.4 gm/dL (2.3-3.5); Glucose 94 mg/dL (74-106); Magnesium 1.6 mg/dL (1.6-2.6); Osmolality,Calculated 276 (275-295); Phosphorous 2.3 mg/dL (2.4-5.1); Potassium 3.0 mMol/L (3.4-5.1); Sodium 138 mMol/L (136-145); Total Protein 5.9 gm/dL (5.7-8.2); eGFR > 60 See Note
[2024-10-02 07:46] VITALS: BP 149/71; PULSE 84; RESP 19; TEMP 37.1; O2SAT 95
--- NOTE | 2024-10-02 08:40 | PC.NURSE ---
Pt was in visitor room eating out of trash and drinking drinks from the trash can, pt also had gone downstairs to get food. Pt is very angry and aggressive with his talking and body movements. He wants to leave so he can eat and go to [place]. Pt is alert and [place] x4. Dr. España and Dr. Henson explained to risk of him leaving, pt stated we all are going to sometime , Interpreted Kita at bedside. pt removed NG tube and was pulling out IVs, pt encourage to come back to ER if worsening symptoms
--- NOTE | 2024-10-02 08:50 | PC.NURSE ---
refused to return to room left AMA
--- NOTE | 2024-10-02 10:28 | ESDS_ITS ---
<Statement entered by Mary España DO - 10/02/24 18:42> I, Mary España DO, attest that I was physically present for the jimenez portions of the service and evaluated the patient with the resident and I reviewed and discussed the case with the resident and agree with the resident's findings and plans of care as documented above <Statement entered by Christian Euceda MD - 10/02/24 15:13> Patient seen and examined at bedside. I discussed and supervised with the recruiting internship physician who took care of this patient. I personally saw and examined the patient. I agree with most of the assessment and plan. Plan of care discussed with attending Dr. España. Christian Euceda MD PGY-2 Planned Discharge Date 10/02/24 DS: Providers Provider Date of admission: 09/29/24 12:23 Primary care physician: Physician No Primary/Family Admitting Provider: Mary España DO Attending Provider on Admission: Mary España DO Consults: 09/29/24 12:26 Consult to Gastroenterology Stat Comment: Hematemesis, possible gastric outlet obstruction Consulting Provider: Karen Huerta 09/30/24 22:16 Consult to General Surgery Routine Comment: Risk of bleed per GI, EGD shows esophageal ulcers Consulting Provider: Ermias Madrid Attending Provider on DC: Mary España DO Discharging Provider: RESIDENT Teresa DS: Diagnosis Problem List Completed Was Problem List Reviewed/Reconciled?: Yes Hospital Course Hospital Course Hospital course: The patient is a 54-year-old Lao-speaking male with no known past medical history who presented to the emergency department with 3 days of hematemesis, epigastric abdominal pain, and black stools. He had recently been admitted for similar symptoms but left AMA before undergoing endoscopic evaluation. On re- admission, he was found to have a hemoglobin of 15.4, which trended down to 11.7, likely due to initial hemoconcentration with subsequent hydration. He also endorsed symptoms consistent with volume depletion and symptomatic anemia. Labs revealed leukocytosis (WBC 16.4 --> normalized to 10.8), elevated platelets, and a creatinine of 1.4 that improved to baseline (0.7) with IV hydration. A nasogastric (NG) tube was placed and drained approximately 1.1L of dark brown fluid. CT abdomen/pelvis showed a fluid-distended stomach concerning for gastric outlet obstruction. The patient underwent an esophagogastroduodenoscopy (EGD) on 09/30/2024, which revealed a large duodenal ulcer covering nearly the entire duodenal bulb with edema and pyloric channel stenosis. Gastritis was noted, and biopsies were taken from the gastric antrum and cardia. No visible bleeding vessel was seen at the ulcer base. Post-EGD, he remained hemodynamically stable, denied recurrent vomiting or bleeding, and his abdominal pain resolved. He was maintained NPO with an NG tube to intermittent suction. He was started on a continuous Protonix drip, Maalox, and Carafate per GI recommendations. General surgery was consulted for precautionary co-management in the event of rebleeding due to the ulcer size and location. On the morning of 10/02/2024, the patient became upset about being NPO and was witnessed by nursing staff walking in the hallway, eating food remains from a trash bin. He then entered another patient?s room and consumed that patient?s food and drink. After speaking with the patient to explain the reason for the NPO status and reiterating the risk of GI bleeding, the patient became agitated, expressed his refusal to remain in the hospital, and attempted to remove his lines and NG tube independently. He was advised to return to his room so staff could safely remove his NG tube and IV. The patient ultimately left the hospital against medical advice. The risks of leaving AMA were explained to the patient in detail, including the risk of rebleeding, bowel perforation, ulcer progression, surgical c omplications, and . The patient verbalized understanding of these risks but declined further treatment. He was advised to return to the emergency department if symptoms worsened. Nursing staff removed the NG tube and IV lines at the patient?s request prior to discharge. Diagnosis during Admission: #Upper GI Bleed #Large Duodenal Ulcer #Gastritis #Pyloric Channel Stenosis #Anemia secondary to GI Bleed #Volume Depletion (Resolved) #Methamphetamine Use #Acute Kidney Injury (Resolved) #Hypokalemia (Resolved) ----- Plan discussed with attending physician Dr. España and senior resident Dr. Megan Henson MD PGY-1 Internal Medicine Time Spent with Patient Time attestation: Total time spent providing and/or coordinating discharge services: Time spent: Greater than 30 minutes Exam Vital Signs Temp Pulse Resp BP Pulse Ox O2 Del Method O2 Flow Rate 98.7 F 84 19 149/71 H 95 Room Air 3 10/02/24 07:46 10/02/24 07:46 10/02/24 07:46 10/02/24 07:46 10/02/24 07:46 10/02/24 04:00 09/30/24 20:40 Narrative Exam Physical Exam in the morning before patient left AMA General: Alert, ambulating in hallway, agitated but oriented HEENT: No scleral icterus, mucous membranes moist CV: Regular rate and rhythm Pulm: Lungs clear to auscultation bilaterally Abdomen: Soft, nontender, mild epigastric fullness, NG tube removed Extremities: No edema Neuro: Alert and oriented ?3, no focal deficits Discharge Plan Plan Patient Disposition: Left Against Medical Advice Patient condition on transfer: Stable Care Plan Goals: Instructions: -patient left against medical advice -Please follow up with your primary care provider within one week of discharge -If your symptoms worsen,please seek immediate medical attention and return to your nearest emergency room -If you do not have a primary care provider, you may follow up at the [facility] at [address], [place] [address], Prescriptions/Referrals Prescriptions/Med Rec: No Action No Known Home Medications Referrals: No Primary/Family,Physician [Primary Care Provider] - Patient/Caregiver Discharge Instructions Print Language: Lao Quality Discharge Quality Measures VTE prophylaxis
--- NOTE | 2024-10-02 23:15 | PD.IMPROG ---
Documentation for date of: 10/02/24 Subjective Subjective Interval history: Late entry for the note Patient signed out AGAINST MEDICAL ADVICE I have spoken with the editorial specialist for either a Billroth I or the Billroth II surgical procedure Exam Vital Signs Temp Pulse Resp BP Pulse Ox O2 Del Method O2 Flow Rate 98.7 F 84 19 149/71 H 95 Room Air 3 10/02/24 07:46 10/02/24 07:46 10/02/24 07:46 10/02/24 07:46 10/02/24 07:46 10/02/24 04:00 09/30/24 20:40 Objective Labs 10/02/24 04:54 10/02/24 04:54 Labs: Laboratory Results - last 24 hr 10/02/24 04:54 WBC 5.1 D RBC 3.57 L Hgb 12.2 L Hct 34.8 L MCV 98 MCH 34.2 MCHC 35.1 RDW Std Deviation 47.2 H Plt Count 462 H D Neut % (Auto) 68 Lymph % (Auto) 21 [place] % (Auto) 9 Eos % (Auto) 1 Baso % (Auto) 1 Neut # (Auto) 3.4 Lymph # (Auto) 1.1 [place] # (Auto) 0.5 Eos # (Auto) 0.1 Baso # (Auto) 0.0 Immature Gran # (Auto) 0.01 H Absolute Nucleated RBC 0.00 Immature Gran % 0 Nucleated RBC % 0 PT 11.0 INR 1.0 APTT 32.5 Sodium 138 Potassium 3.0 L D Chloride 99 Carbon Dioxide 28.5 Anion Gap 11 BUN 15 Creatinine 0.7 Estim Creat Clear Calc 102.7 eGFR > 60 BUN/Creatinine Ratio 21 H Glucose 94 D Calculated Osmolality 276 Calcium 8.4 Corrected Calcium 8.8 Phosphorus 2.3 L Magnesium 1.6 Total Bilirubin 0.5 AST 14 ALT 8 L Alkaline Phosphatase 64 Total Protein 5.9 Albumin 3.5 Globulin 2.4 Albumin/Globulin Ratio 1.5 Impressions Impression: Deep penetrating duodenal ulcer with gastric outlet obstruction Patient signed out AGAINST MEDICAL ADVICE I am hoping he will come back before he bleeds to Assessment & Plan A&P Narrative Patient is a 54-year-old male with no known past medical or surgical history presenting with continued hematemesis. He was recently admitted to [facility] from 09/18/2024 to 09/20/2024 for similar symptoms, but left AMA before EGD could be performed. #Suspected peptic ulcer disease, hematemesis, blood in bowel movement HGB is 15.4, NG tube in place, GI series from previous visit shows severe active peptic ulcer disease in the duodenum. No fecal occult blood test done. Plan: Keep NPO, intermittent suction on NG tube, protonix 8mg/hr drip, consent for fiberoptic esophogastroduodenoscopy with possible biopsy/therapeutic intervetion under IV moderate sedation tomorrow attending physician attestation Patient examined laboratory data reviewed imaging studies reviewed this patient signed out AGAINST MEDICAL ADVICE last week Consent obtained for fiberoptic esophagogastroduodenoscopy with possible biopsy possible therapeutic intervention under intravenous moderate sedation NGT to intermittent Gomco suction Thank you for the opportunity to participate in care of this patient Time Spent With Patient Time: Total time spent is greater than 50% in coordination of care (as documented) at patient's floor/unit and/or counseling patient:
== END 2024-10-02 08:35 | disposition left against medical advice (07) | DRG 254 ==
LOC: SERX 12:07 → SERHOLD 13:45 → S3NX 21:52
PROVIDERS: Nurse Practitioner Family; Specialist; Student in an Organized Health Care Education/Training Program; Admitting Provider Internal Medicine; Emergency Provider Emergency Medicine; Visit Provider Internal Medicine
PROC: 0DB48ZX Excision of Esophagogastric Junction, Via Natural or Artificial Opening Endoscopic, Diagnostic (ICD-10-PCS; CPT 43239; principal; 2024-09-30 19:30)
DX: K31.1 Adult hypertrophic pyloric stenosis (principal); K26.4 Chronic or unspecified duodenal ulcer with hemorrhage; K22.11 Ulcer of esophagus with bleeding; F17.210 Nicotine dependence, cigarettes, uncomplicated; N17.9 Acute kidney failure, unspecified; K29.71 Gastritis, unspecified, with bleeding; E87.6 Hypokalemia; D50.0 Iron deficiency anemia secondary to blood loss (chronic); F15.90 Other stimulant use, unspecified, uncomplicated; Z53.29 Procedure and treatment not carried out because of patient's decision for other reasons; Z79.899 Other long term (current) drug therapy; D72.829 Elevated white blood cell count, unspecified
CPT/HCPCS: 36415; 36430; 74177; 80053; 80061; 80307; 80320; 81001; 83690; 83735; 84100; 85014; 85018; 85025; 85610; 85730; 86850; 86900; 86901; 86923; 87081; 87086; 93225; 96365; 96375; 99285; A4649; J0696; J1171; J1200; J2250; J2405; J2470; J3010; J3475; J3480; J3490; J7030; J7120; J7121; P9016; Q9967; A9270; G0480

== ENCOUNTER 2024-10-18 19:33 | Inpatient (IN) | payer MEDICAID, SELFPAY ==
[2024-10-18 20:27] LABS: Basophils # (Auto) 0.0 Thou/mm3 (0.0-0.2); Basophils % (Auto) 0 % (0-2.5); Eosinophils # (Auto) 0.0 Thou/mm3 (0.0-0.5); Eosinophils % (Auto) 1 % (0-10); Hematocrit 41.4 % (41.0-53.0); Hemoglobin 14.6 g/dL (13.5-16.0); Immature Granulocytes Auto 0.02 Thou/mm3 (0.00-0.00); Lymphocytes # (Auto) 1.6 Thou/mm3 (1.0-4.8); Lymphocytes % (Auto) 22 % (10-50); Mean Corpuscular HGB Conc 35.3 g/dl (31.0-37.0); Mean Corpuscular Hemoglobin 33.7 pg (25.0-35.0); Mean Corpuscular Volume 96 fL (80-100); Monocytes # (Auto) 0.4 Thou/mm3 (0.0-0.8); Monocytes % (Auto) 5 % (0-12); Neutrophils # (Auto) 5.3 Thou/mm3 (1.8-7.7); Neutrophils % (Auto) 72 % (37-80); Nucleated Red Blood Cell # 0.00 Thou/mm3 (0.00-0.00); Nucleated Red Blood Cell % 0 /100 WBC (0); Platelet Count 550 Thou/mm3 (140-440); RDW Standard Deviation 46.5 fL (35.1-43.9); Red Blood Count 4.33 Miln/mm3 (4.50-5.90); White Blood Count 7.4 Thou/mm3 (3.8-10.6)
[2024-10-18 20:40] LABS: INR 1.0 (0.9-1.3); Partial Thromboplastin Time 27.8 Seconds (22.0-36.0); Prothrombin Time 11.4 Seconds (9.0-12.2)
[2024-10-18 20:46] LABS: Alanine Aminotransferase 16 U/L (10-49); Albumin, Serum 4.9 gm/dL (3.5-5.0); Albumin/Globulin Ratio 1.6 (1.2-2.2); Alkaline Phosphatase 115 U/L (46-116); Anion Gap 15 (7-16); Aspartate Amino Transferase 21 U/L (0-34); BUN/Creatinine Ratio 16 Ratio (12-20); Bilirubin,Total 0.6 mg/dL (0.3-1.2); Blood Urea Nitrogen 21 mg/dL (9-23); Calcium 11.0 mg/dL (8.3-10.6); Calcium (Corrected) 11.0 mg/dL (8.5-10.1); Carbon Dioxide 29.6 mMol/L (20.0-31.0); Chloride 97 mMol/L (98-107); Creatinine (Component) 1.3 mg/dL (0.6-1.3); Globulin 3.0 gm/dL (2.3-3.5); Glucose 145 mg/dL (74-106); Lipase 36 U/L (12-53); Magnesium 1.9 mg/dL (1.6-2.6); Osmolality,Calculated 289 (275-295); Potassium 3.4 mMol/L (3.4-5.1); Sodium 142 mMol/L (136-145); Total Protein 7.9 gm/dL (5.7-8.2); eGFR > 60 See Note
[2024-10-18 21:02] LABS: B-Type Natriuretic Peptide 49 pg/mL (0-100)
[2024-10-18 21:39] VITALS: BP 91/67; PULSE 120; RESP 18; TEMP 36.9; O2SAT 99
[2024-10-18 21:40] VITALS: BMI 19.4
--- NOTE | 2024-10-18 22:08 | XR_ITS ---
Examination: CT abdomen with intravenous contrast CT pelvis with intravenous contrast 2-D coronal reconstructions 2-D sagittal reconstructions Date and time of exam:October 19, 2019 5:19 PM INDICATIONS: Abdominal pain and vomiting beginning 3 days ago. CTDI: vol (mGy) 6.2 DLP: (mGycm) 346 Technique: Multiple axial sections of the abdomen and pelvis have been obtained. 64 slice high-resolution scanner used. 3 mm axial sections have been obtained, post intravenous injection of 60 cc Isovue 370 2-D sagittal, coronal reconstructions obtained. Low dose protocols were performed. One or more of the following dose reduction techniques were used; automated exposure control, adjustment of the mA and/or KV according to patient size, use of iterative reconstruction technique. Findings: Again noted fluid distended stomach No focal liver or splenic lesion Gallbladder is not visualized. No pancreatic mass No hydronephrosis Aorta normal size Mild small bowel and colonic ileus Abundant stool in the rectum The osseous structures are intact IMPRESSION: Unchanged markedly fluid distended stomach, gastric outlet obstruction pattern
--- NOTE | 2024-10-18 22:10 | EDRME_ITS ---
Rapid Medical Screening Exam [facility] Arrival date/time: 10/18/24 19:33 Chief Complaint: Abdominal Pain Vital signs: Vital Signs Temperature 98.4 F 10/18/24 21:39 Pulse Rate 120 H 10/18/24 21:39 Respiratory Rate 18 10/18/24 21:39 Blood Pressure 91/67 10/18/24 21:39 Pulse Oximetry (%) 99 10/18/24 21:39 Oxygen Delivery Method Room Air 10/18/24 21:39 [facility] Narrative: 54-year-old male patient came in for evaluation regarding coffee-ground vomitus for 3 days with abdominal pain
[2024-10-18 22:42] LABS: OBG Card Expiration Date 07-26; OBG Card Lot # 20632; OBG Developer Expiration Date 2026-09; OBG Developer Lot # 23003; OBG Performed By LEECE; OBG QC OK? Yes
[2024-10-18 22:47] LABS: Occult Blood, Gastric Positive (Negative)
[2024-10-18] MEDS: RINGERS LACTATED 1000 ML 1,000 ML 999 ML IV (23:10)
[2024-10-18] MEDS: METOCLOPRAMIDE INJ 5 MG/ML VIAL 2 ML 10 MG IVP (23:10)
[2024-10-18 23:39] VITALS: BP 115/94; PULSE 74; RESP 20; TEMP 36.9; O2SAT 98
[2024-10-19] VITALS (8 sets, daily range): BP systolic 94–157; BP diastolic 64–101; PULSE 87–104; RESP 17–20; TEMP 36.1–37.4; O2SAT 96–100; BMI 19.4
--- NOTE | 2024-10-19 00:13 | PD.EDADULT ---
ED General RME/HPI General Chief complaint: Abdominal Pain Stated complaint: ABD PAIN THAT RADIATES TO BACK X3 DAYS Time Seen by Provider: 10/18/24 22:12 Arrival date/time: 10/18/24 19:33 RME / HPI RME / HPI narrative: 54-year-old male patient came in for evaluation regarding coffee-ground vomitus for 3 days with abdominal pain 54-year-old male with past medical history of duodenal ulcer and previous upper GI bleed comes into the ED with chief complaints of bloody vomiting. Patient states that he has been having abdominal pain for the past 3 days and has been constipated as well. Patient mentions that he has been having bloody vomiting as well during these days, but no rectal bleeding. Patient denies drinking, but does admit smoking daily. Otherwise denies having any chest pain, shortness of breath, burning sensation in urination, dizziness, or headaches. Patient left AMA on previous admission on 10/02/2024 for which he was admitted for similar symptoms. Admits smoking, denies any drinking or illicit drugs Related Data Home Medications ?Medication ?Instructions ?Recorded ?Confirmed No Known Home Medications 09/19/24 09/29/24 Allergies Allergy/AdvReac Type Severity Reaction Status Date / Time No Known Allergies Allergy Verified 10/18/24 19:34 Review of Systems Review of Systems Systems Reviewed: All systems reviewed, normal except as documented Past Medical History Past Medical History Comments PMH COMMENT: PMH: None PSH: None Social History: 1 PPD smoker for 39 years, no alcohol or drugs ED Exam Narrative Physical exam: Gen: A&O X 3, NAD, disheveled HEENT: NCAT, EOMI, Pupils reactive AMY, not icteric. External ears normal. No rhinorrhea. Dry mucous membranes. Neck: Supple, full range of motion, no observable masses, No meningeal sign. Lungs: No Respiratory distress, clear bilateral. CV: RRR, no murmurs. Abdomen: Soft, nondistended, generalized mildly tender to palpation No rebound tenderness. MSK: No joint swelling, no redness, peripheral pulses presents, lumbar with no edema. Skin: No rashes, petechiae, lesions. Neuro: No focal neurological deficits appreciated, sensory and motor intact. Psych: Cooperative, appropriate mood and effect. Course Quality Measures none Orders Category Date Time Status COVID-19 Screening Questionnaire NOW Care 10/19/24 00:[address] Screening NOW Care 10/18/24 22:08 Active Decision to Admit X1 Care 10/19/24 00:46 Completed Occult blood,Gastric (Nursing) NEEDED Care 10/18/24 22:[address] abdomen pelvis w con Stat Exams 10/18/24 22:08 Completed B-Type Natriuretic Peptide Stat Lab 10/18/24 20:11 Completed CBC Stat Lab 10/18/24 20:11 Completed Comprehensive Metabolic Panel Stat Lab 10/18/24 20:11 Completed Drug Screen,Urine Stat Lab 10/18/24 19:46 Ordered Lipase Stat Lab 10/18/24 20:11 Completed Magnesium Stat Lab 10/18/24 20:11 Completed Occult Blood, Gastric (LAB) Stat Lab 10/18/24 22:20 Completed Partial Thromboplastin Time Stat Lab 10/18/24 20:11 Completed Prothrombin Time with INR Stat Lab 10/18/24 20:11 Completed Type and Screen Stat Lab 10/19/24 00:26 Ordered UA, C/S IF [Urinalysis, C/S if Indicated] Stat Lab 10/18/24 19:47 Ordered Metoclopramide Inj [Reglan Inj] Med 10/18/24 22:09 Discontinued 10 mg IVP X1 ONE Pantoprazole Inj [Protonix Inj] Med 10/18/24 22:09 Discontinued 80 mg IVP X1 ONE Ringers Lactated 1000 ml [Lactated Ringers] 1,000 ml Med 10/18/24 22:09 Discontinued IV 999 mls/hr Vital Signs Vital signs: Vital Signs Temperature 98.4 F 10/18/24 21:39 Pulse Rate 120 H 10/18/24 21:39 Respiratory Rate 18 10/18/24 21:39 Blood Pressure 91/67 10/18/24 21:39 Pulse Oximetry (%) 99 10/18/24 21:39 Oxygen Delivery Method Room Air 10/18/24 21:39 Discharge Plan Plan Patient Disposition: Admit Acute Care w/in Hospital Prescriptions/Referrals Prescriptions/Med Rec: No Action No Known Home Medications Referrals: No Primary/Family,Physician [Primary Care Provider] - In 1 week Problem List Clinical Impression: Upper gastrointestinal bleeding Patient/Caregiver Discharge Instructions Print Language: Iraqi Stand Alone Forms: Anna Award Info., Patient Portal Info Letter MDM Narrative MDM hospital course: Patient was seen and evaluated by myself after diagnostic labs and imaging were reviewed. Patient's abdomen/pelvis CT showed a mild small bowel and colonic ileus with fluid distended stomach possibly secondary to gastric outlet obstruction. Patient received 1 L IV fluids, Protonix 80 mg x 1, and Reglan 10 mg x 1 00:44: Spoke with IM team for admission. Will assess the patient for admission. Case disclosed with Attending Dr. Joe Hazel PGY2 Disclaimer: Even though this this note was dictated by speech recognition and even though it was carefully revised there may still be minor errors in server service assistant due to voice recognition software. Medication Administration(s) Medication Administration History Discontinued Medications Lactated Ringer's (Lactated Ringers) 1,000 mls @ 999 mls/hr IV .Q1H1M ONE Stop: 10/18/24 23:09 Last Admin: 10/18/24 23:10 Dose: 999 mls/hr Documented By: KHALIDA Metoclopramide HCl (Metoclopramide Inj 5 Mg/Ml Vial 2 Ml) 10 mg IVP X1 ONE; Protocol Stop: 10/18/24 22:10 Last Admin: 10/18/24 23:10 Dose: 10 mg Documented By: KHALIDA Pantoprazole Sodium (Pantoprazole Inj 40 Mg Vial) 80 mg IVP X1 ONE Stop: 10/18/24 22:10 Last Admin: 10/18/24 23:09 Dose: 80 mg Documented By: KHALIDA
--- NOTE | 2024-10-19 01:56 | ESHP_ITS ---
Documentation for date of: 10/19/24 [facility] History of Present Illness Chief complaint: Hematemesis History of present illness: 54 y/o M with PMHx significant for large duodenal ulcer, gastric outlet obstruction, meth abuse presents with 3 days of recurrent hematemesis and epigastric abdominal pain. Patient has been hospitalized twice in the past for hematemesis and abdominal pain, found to have large duodenal ulcer and pyloric stenosis resulting in gastric outlet obstruction, both times patient AMA before completing treatment. Patient reports that for the past 3 days he has had progressive worsening hematemesis and abdominal pain, primarily epigastric region. Describes vomitus as dark red. In ED patient had emesis bag with red vomitus with visible blood clots. Patient also reports mild shortness of breath, decreased appetite, has not eaten in 3 days. Patient denies fever, chills, chest pain. ED COURSE: Labs significant for: Hemoglobin 14.6, BUN 21, creatinine 1.3, corrected calcium 11.0, lipase 36. Significant for: Abdominal pelvis CT showing markedly distended stomach with gastric outlet obstruction pattern. Patient received Reglan, 1 L bolus lactated Ringer's, 80 mg Protonix in the ED. PMH: Duodenal ulcer, gastric outlet obstruction PSH: None SH: 12-bayl-yugl smoking history. Denies alcohol or illicit drug use, however tested positive for methamphetamines previous visit. Allergies:?NKDA Medications: None Review of Systems Review of Systems Systems Reviewed: All systems reviewed, normal except as documented Past Medical History Past Medical History Comments PMH COMMENT: PMH: Duodenal ulcer, gastric outlet obstruction PSH: None SH: 74-wrxk-auve smoking history. Denies alcohol or illicit drug use, however tested positive for methamphetamines previous visit. Allergies:?NKDA Medications: None Exam Vital Signs Temp Pulse Resp BP Pulse Ox O2 Del Method 98.4 F 74 20 115/94 H 98 Room Air 10/18/24 23:39 10/18/24 23:39 10/18/24 23:39 10/18/24 23:39 10/18/24 23:39 10/18/24 23:39 Narrative Exam PE: Gen: Well-developed and well-nourished. Disheveled. HEENT: NCAT, PERRLA, EOMI, MMM, anicteric conjunctivae. CVS: normal S1 and S2. RRR. No M/R/G. Resp: CTA B/L. No rhonchi, rales, crackles or wheezing. Abd: Significant epigastric tenderness. Epigastric fullness/distention. MSK: Good ROM in BUE & BLE. No edema or rash. Neuro: CN II-XII grossly intact. Strength 5/5 in BUE & BLE. Alert and oriented x3. Psych: appropriate mood and affect. Results: Labs 10/19/24 04:23 10/19/24 04:23 Labs: Short CBC 10/18/24 Range/Units 20:11 WBC 7.4 (3.8-10.6) Thou/mm3 Hgb 14.6 (13.5-16.0) g/dL Hct 41.4 (41.0-53.0) % Plt Count 550 H D (140-440) Thou/mm3 BMP 10/18/24 20:11 Sodium 142 Potassium 3.4 Chloride 97 L Carbon Dioxide 29.6 BUN 21 Creatinine 1.3 Glucose 145 H Calcium 11.0 H Liver Function 10/18/24 Range/Units 20:11 Total Bilirubin 0.6 (0.3-1.2) mg/dL AST 21 (0-34) U/L ALT 16 (10-49) U/L Alkaline Phosphatase 115 (46-116) U/L Albumin 4.9 (3.5-5.0) gm/dL Quality Measures Quality Measures VTE prophylaxis Medications Home Medications and Allergies Home Medications ?Medication ?Instructions ?Recorded ?Confirmed ?Type No Known Home Medications 09/19/24 07/04/05 History Allergies Allergy/AdvReac Type Severity Reaction Status Date / Time No Known Allergies Allergy Verified 10/18/24 19:34 Visit Medications Acetaminophen (Acetaminophen Supp 650 Mg Supp) 650 mg WA Q6HR PRN PRN Reason: Fever > 100.4 or mild pain Stop: 11/18/24 01:50 Acetaminophen (Acetaminophen Supp 650 Mg Supp) 650 mg WA Q6HR PRN PRN Reason: Fever > 100.4 or mild pain 1-3 Stop: 11/18/24 01:50 Lactated Ringer's (Lactated Ringers) 1,000 mls @ 75 mls/hr IV .[id number] CHASITY Stop: 10/20/24 04:39 Morphine Sulfate (Morphine Sulf Inj 10 Mg/Ml Vial) 2 mg IVP Q4HR PRN PRN Reason: PAIN SCALE 4-10(Mod-Sev Stop: 10/24/24 01:50 Discontinued Medications Acetaminophen (Acetaminophen Supp 650 Mg Supp) 650 mg WA Q6HR PRN PRN Reason: Fever > 100.4 or pain Stop: 11/18/24 01:50 Lactated Ringer's (Lactated Ringers) 1,000 mls @ 999 mls/hr IV .Q1H1M ONE Stop: 10/18/24 23:09 Last Admin: 10/18/24 23:10 Dose: 999 mls/hr Metoclopramide HCl (Metoclopramide Inj 5 Mg/Ml Vial 2 Ml) 10 mg IVP X1 ONE; Protocol Stop: 10/18/24 22:10 Last Admin: 10/18/24 23:10 Dose: 10 mg Metoclopramide HCl (Metoclopramide Inj 5 Mg/Ml Vial 2 Ml) 5 mg IVP X1 ONE; Protocol Stop: 10/19/24 01:34 Pantoprazole Sodium (Pantoprazole Inj 40 Mg Vial) 80 mg IVP X1 ONE Stop: 10/18/24 22:10 Last Admin: 10/18/24 23:09 Dose: 80 mg Assessment & Plan Plan 54 y/o M with PMHx significant for large duodenal ulcer, gastric outlet obstruction, meth abuse presents with 3 days of recurrent hematemesis and epigastric abdominal pain, admitted for upper GI bleed and gastric outlet obstruction. #Upper GI bleed #Gastric outlet obstruction Patient presented with chief complaint of hematemesis and increased abdominal pain progressing over the past 3 days. Patient previously presented twice before for similar symptoms, found to have large duodenal ulcer and pyloric channel stenosis resulting in gastric outlet obstruction. Both times patient left AMA prior to completing treatment. CT A/P shows marked distention of the stomach. Patient has severe tenderness in the epigastric region. Labs largely unremarkable, hemoglobin stable at 14.6. Patient was given 1 L bolus lactated Ringer's, Reglan, and 80 mg Protonix in the ED. Patient reports no appetite, has not eaten in 3 days. - NG tube to LIS - GI consulted, appreciate recs - Protonix drip - N.p.o. - Morphine 2 mg IV every 4 hours as needed for pain - IVF: LR at 75 mL/h x 2 L - #Meth abuse Patient denies illicit drug use, however tested positive for methamphetamines on previous visit. - nutrition services manager - Addiction counseling DVT prophylaxis: SCDs GI prophylaxis: Protonix drip Diet: N.p.o. Lines: Peripheral IV Code status: Full code Plan of care discussed with attending Dr. Awad. Christian Euceda MD PGY?2 Attending Provider Attestation/Addendum I attest that I was physically present for the evaluation, physical examination, lab and imaging review of the patient with the residents. I discussed the case with the residents and agree with the findings and plans of care as documented above. After examination of the patient and review of the clinical data I feel that this patient needs admission to the hospital for further treatment/evaluation Myron Awad MD
[2024-10-19] MEDS: METOCLOPRAMIDE INJ 5 MG/ML VIAL 2 ML IVP (02:29)
[2024-10-19] MEDS: RINGERS LACTATED 1000 ML 1,000 ML 75 ML IV ×2 (02:30→19:16)
[2024-10-19] MEDS: PANTOPRAZOLE/NS 80MG IV PREMIX 80 MG/100 ML BAG 10 MG IV ×3 (02:31→21:48)
--- NOTE | 2024-10-19 02:37 | XR_ITS ---
Examination: AP chest single view TECHNIQUE: AP portable upright chest single view Date and time: October 19, 2024, 0334 hours INDICATIONS: Post orogastric tube placement. FINDINGS: Orogastric tube sidehole is at the GE junction Normal heart size No pneumonia Old fracture left eighth rib posteriorly IMPRESSION: Advance the orogastric tube 5 cm with follow-up abdomen film
[2024-10-19 04:59] LABS: Basophils # (Auto) 0.0 Thou/mm3 (0.0-0.2); Basophils % (Auto) 0 % (0-2.5); Eosinophils # (Auto) 0.0 Thou/mm3 (0.0-0.5); Eosinophils % (Auto) 0 % (0-10); Hematocrit 37.2 % (41.0-53.0); Hemoglobin 12.7 g/dL (13.5-16.0); Immature Granulocytes Auto 0.03 Thou/mm3 (0.00-0.00); Lymphocytes # (Auto) 1.3 Thou/mm3 (1.0-4.8); Lymphocytes % (Auto) 13 % (10-50); Mean Corpuscular HGB Conc 34.1 g/dl (31.0-37.0); Mean Corpuscular Hemoglobin 33.9 pg (25.0-35.0); Mean Corpuscular Volume 99 fL (80-100); Monocytes # (Auto) 0.7 Thou/mm3 (0.0-0.8); Monocytes % (Auto) 7 % (0-12); Neutrophils # (Auto) 7.4 Thou/mm3 (1.8-7.7); Neutrophils % (Auto) 79 % (37-80); Nucleated Red Blood Cell # 0.00 Thou/mm3 (0.00-0.00); Nucleated Red Blood Cell % 0 /100 WBC (0); Platelet Count 388 Thou/mm3 (140-440); RDW Standard Deviation 48.5 fL (35.1-43.9); Red Blood Count 3.75 Miln/mm3 (4.50-5.90); White Blood Count 9.4 Thou/mm3 (3.8-10.6)
[2024-10-19 05:22] LABS: Collection Type, Urine Clean Catch
[2024-10-19 05:33] LABS: Alanine Aminotransferase 12 U/L (10-49); Albumin, Serum 4.1 gm/dL (3.5-5.0); Albumin/Globulin Ratio 1.6 (1.2-2.2); Alkaline Phosphatase 97 U/L (46-116); Anion Gap 12 (7-16); Aspartate Amino Transferase 19 U/L (0-34); BUN/Creatinine Ratio 17 Ratio (12-20); Bilirubin,Total 0.4 mg/dL (0.3-1.2); Blood Urea Nitrogen 22 mg/dL (9-23); Calcium 9.2 mg/dL (8.3-10.6); Calcium (Corrected) 9.2 mg/dL (8.5-10.1); Carbon Dioxide 27.4 mMol/L (20.0-31.0); Cardiac Risk Estimate 3.5 RATIO (4.0-6.7); Chloride 97 mMol/L (98-107); Cholesterol 133 mg/dL (132-200); Creatinine (Component) 1.3 mg/dL (0.6-1.3); Estimated Creatinine Clearance 54.0 mL/min (>60); Globulin 2.5 gm/dL (2.3-3.5); Glucose 106 mg/dL (74-106); HDL Cholesterol 38 mg/dL (40-60); LDL Cholesterol,Calculated 79 mg/dL (0-130); Magnesium 1.4 mg/dL (1.6-2.6); Osmolality,Calculated 275 (275-295); Potassium 3.5 mMol/L (3.4-5.1); Sodium 136 mMol/L (136-145); Total Protein 6.6 gm/dL (5.7-8.2); Triglycerides 81 mg/dL (30-150); eGFR > 60 See Note
[2024-10-19 05:37] LABS: Bacteria,Urine 4+; Bilirubin,Urine Negative (Negative); Blood,Urine Negative (Negative); Budding Yeast,Urine Present; Clarity,Urine Clear (Clear/Hazy); Color,Urine Yellow (Lt Yel-Yel); Glucose, Urine Trace (Negative); Hyaline Casts,Urine < 1 /hpf (0-1); Ketones,Urine Negative (Negative); Leukocyte Esterase,Urine Negative (Negative); Nitrite,Urine Negative (Negative); PH,Urine 6.5 (5.0-7.0); Protein,Urine 1+ (Neg - Trace); RBC,Urine 18 /hpf (0-3); Squamous Epithelial Cell,Urine < 1 /hpf (0-5); Urobilinogen,Urine Negative mg/dL (0.0-1.0); WBC,Urine 6 /hpf (0-5)
[2024-10-19 05:46] LABS: Culture Indicated,Urine Yes; Specific Gravity,Urine 1.020 (1.001-1.035)
[2024-10-19 06:05] LABS: Amphetamine/Methamp Scrn,U Positive (Negative); Barbiturate Screen,Urine Negative (Negative); Benzodiazepines Screen,Urine Negative (Negative); Benzoylecgonine Screen, Ur Negative (Negative); Fentanyl Screen,Urine Negative (Negative); Opiate Screen,Urine Negative (Negative); THC Screen,Urine Negative (Negative)
[2024-10-19] MEDS: Magnesium Sulfate 4 GM Ivpb 4 GM/50 ML BAG IV (10:32)
--- NOTE | 2024-10-19 10:51 | ESPR_ITS ---
<Statement entered by Scott Beauchamp MD - 10/19/24 21:05> Patient was examined and case was reviewed with team including attending physician. Note reviewed, I agree with most of its contents and agree with the patient's care as documented by Dr. Wolfe Patient seen today at the bedside found somnolent. Vital signs stable at this time. Patient presented overnight due to hematemesis and was admitted for GI bleed. Patient has hx of duodenal ulcer and had EGD done prior admission in September 2024 found to have large duodenal ulcer and pyloric channel stenosis resulting in gastric outlet obstruction. He had left AMA on that same admission. Patient currently with NGT on LIS to decompress the stomach. GI and General surgery were consulted. GI plans to do EGD for possible balloon dilatation of the duodenal bulb. General surgery plans to do exploratory laparotomy with possible Bilroth procedure. Patient will remain NPO at this time on Protonix drip and parenteral nutrition while interventions are ongoing, as well as patient has not been able to eat for 3 days. Will follow patients Hg and transfuse if needed, currently stable. Case discussed with my attending Dr. Taco Beauchamp MD PGY-2 Documentation for date of: 10/19/24 Subjective Subjective Interval history: Patient was evaluated at the bedside this morning. He was found sleeping in bed and, when awakened for conversation, was minimally responsive and returned to sleep. He is aware of the need to remain NPO in anticipation of possible surgery. Exam Vital Signs Temp Pulse Resp BP Pulse Ox O2 Del Method 99.3 F 104 H 17 112/67 99 Room Air 10/19/24 08:24 10/19/24 08:24 10/19/24 08:24 10/19/24 08:24 10/19/24 08:24 10/19/24 08:24 Narrative Exam Physical Exam General: No acute distress. Conversational and non-toxic appearing. NG tube in place. HEENT: Normocephalic, atraumatic, mucous membranes moist. Heart: Regular rate and rhythm, no murmurs. Lungs: Clear to auscultation with no wheezing or crackles. Abdomen: Soft, mild epigastric fullness. No guarding or rebound tenderness. Neurologic: Alert and oriented x3, no gross neurological deficit, and patient able to move all 4 extremities. Extremities: No edema. Skin: No rash or ecchymoses. Objective Labs 10/20/24 05:34 10/20/24 05:34 Labs: Laboratory Results - last 24 hr 10/18/24 10/18/24 10/19/24 20:11 22:20 01:11 WBC 7.4 RBC 4.33 L Hgb 14.6 Hct 41.4 MCV 96 MCH 33.7 MCHC 35.3 RDW Std Deviation 46.5 H Plt Count 550 H D Neut % (Auto) 72 Lymph % (Auto) 22 [place] % (Auto) 5 Eos % (Auto) 1 Baso % (Auto) 0 Neut # (Auto) 5.3 Lymph # (Auto) 1.6 [place] # (Auto) 0.4 Eos # (Auto) 0.0 Baso # (Auto) 0.0 Immature Gran # (Auto) 0.02 H Absolute Nucleated RBC 0.00 Immature Gran % 0 Nucleated RBC % 0 PT 11.4 INR 1.0 APTT 27.8 Sodium 142 Potassium 3.4 Chloride 97 L Carbon Dioxide 29.6 Anion Gap 15 BUN 21 Creatinine 1.3 Estim Creat Clear Calc Not Performed. eGFR > 60 BUN/Creatinine Ratio 16 Glucose 145 H Calculated Osmolality 289 Calcium 11.0 H Corrected Calcium 11.0 H Magnesium 1.9 Total Bilirubin 0.6 AST 21 ALT 16 Alkaline Phosphatase 115 B-Natriuretic Peptide 49 Total Protein 7.9 Albumin 4.9 Globulin 3.0 Albumin/Globulin Ratio 1.6 Triglycerides Cholesterol LDL Cholesterol, Calc HDL Cholesterol Cholesterol/HDL Ratio Lipase 36 Ur Collection Type Urine Color Urine Clarity Urine pH Ur Specific [place] Urine Protein Urine Glucose (UA) Urine Ketones Urine Blood Urine Nitrite Urine Bilirubin Urine Urobilinogen (Auto) Ur Leukocyte Esterase Urine RBC Urine WBC Ur Squamous Epith Cells Urine Bacteria Hyaline Casts Urine Yeast (Budding) Ur Culture Indicated? Gastric Occult Blood Positive A Urine Opiates Screen Urine Fentanyl Screen Ur Barbiturates Screen U Amphetamin/Meth Scrn U Benzodiazepines Scrn U Cocaine Metab Screen U Marijuana (THC) Screen Blood Type O Positive Antibody Screen NEGATIVE Blood Bank Wristband ID Yes 10/19/24 10/19/24 04:23 05:11 WBC 9.4 RBC 3.75 L Hgb 12.7 L Hct 37.2 L MCV 99 MCH 33.9 MCHC 34.1 RDW Std Deviation 48.5 H Plt Count 388 D Neut % (Auto) 79 Lymph % (Auto) 13 [place] % (Auto) 7 Eos % (Auto) 0 Baso % (Auto) 0 Neut # (Auto) 7.4 Lymph # (Auto) 1.3 [place] # (Auto) 0.7 Eos # (Auto) 0.0 Baso # (Auto) 0.0 Immature Gran # (Auto) 0.03 H Absolute Nucleated RBC 0.00 Immature Gran % 0 Nucleated RBC % 0 PT INR APTT Sodium 136 Potassium 3.5 Chloride 97 L Carbon Dioxide 27.4 Anion Gap 12 BUN 22 Creatinine 1.3 Estim Creat Clear Calc 54.0 L eGFR > 60 BUN/Creatinine Ratio 17 Glucose 106 Calculated Osmolality 275 Calcium 9.2 D Corrected Calcium 9.2 D Magnesium 1.4 L Total Bilirubin 0.4 AST 19 ALT 12 Alkaline Phosphatase 97 B-Natriuretic Peptide Total Protein 6.6 Albumin 4.1 D Globulin 2.5 Albumin/Globulin Ratio 1.6 Triglycerides 81 Cholesterol 133 LDL Cholesterol, Calc 79 HDL Cholesterol 38 L Cholesterol/HDL Ratio 3.5 L Lipase Ur Collection Type Clean Catch Urine Color Yellow Urine Clarity Clear Urine pH 6.5 Ur Specific [place] 1.020 Urine Protein 1+ A Urine Glucose (UA) Trace Urine Ketones Negative Urine Blood Negative Urine Nitrite Negative Urine Bilirubin Negative Urine Urobilinogen (Auto) Negative Ur Leukocyte Esterase Negative Urine RBC 18 H Urine WBC 6 H Ur Squamous Epith Cells < 1 Urine Bacteria 4+ A Hyaline Casts < 1 Urine Yeast (Budding) Present A Ur Culture Indicated? Yes Gastric Occult Blood Urine Opiates Screen Negative Urine Fentanyl Screen Negative Ur Barbiturates Screen Negative U Amphetamin/Meth Scrn Positive A U Benzodiazepines Scrn Negative U Cocaine Metab Screen Negative U Marijuana (THC) Screen Negative Blood Type Antibody Screen Blood Bank Wristband ID Quality Measures Quality Measures VTE prophylaxis Assessment & Plan Assessment Current Active Medications: Generic Name Dose Route Start Last Admin Trade Name Freq PRN Reason Stop Dose Admin Acetaminophen 650 mg 10/19/24 01:56 Acetaminophen Supp 650 Mg Supp ME 11/18/24 01:50 Q6HR PRN Fever > 100.4 or mild pain 1-3 Lactated Ringer's 1,000 mls @ 75 mls/hr 10/19/24 02:00 10/19/24 02:30 Lactated Ringers IV 10/20/24 04:39 75 mls/hr .[id number] CHASITY Administration Pantoprazole Sodium 80 mg in 100 mls @ 10 mls/hr 10/19/24 01:56 10/19/24 02:31 Protonix/Ns 80mg Iv Premix IV 10/21/24 23:55 10 mls/hr Q10H CHASITY Administration Magnesium Sulfate 4 gm in 50 mls @ 12.5 mls/hr 10/19/24 08:49 10/19/24 10:32 Magnesium Sulfate Ivpb IV 10/19/24 12:48 12.5 mls/hr X1 ONE Administration Morphine Sulfate 2 mg 10/19/24 01:51 Morphine Sulf Inj 10 Mg/Ml Vial IVP 10/24/24 01:50 Q4HR PRN PAIN SCALE 4-10(Mod-Sev Ondansetron HCl 4 mg 10/19/24 01:55 Ondansetron Inj 2 Mg/Ml Inj 2 Ml IVP 11/18/24 01:54 Q6HR PRN NAUSEA OR VOMITING Protocol Plan 54 year old male with past medical history of large duodenal ulcer and meth abuse presented with 3 days of recurrent hematemesis and epigastric abdominal pain, admitted for gastric outlet obstruction. #Gastric outlet obstruction #Hematemesis Patient previously presented twice before for similar symptoms. Left AMA both times. EGD (09/30) with Dr. Huerta: large duodenal ulcer and pyloric channel stenosis resulting in gastric outlet obstruction. CT abd/pelvis (10/18): Unchanged markedly fluid distended stomach, gastric outlet obstruction pattern. Loss of appetite, not eaten in 3 days. Plan: - Keep NPO with NG tube decompression - Start parental nutrition, keep albumin > 3 - Continue Protonix drip - IV fluids - GI consulted, appreciate recs - Plan for EGD with possible therapeutic intervention, possible balloon dilatation of the duodenal bulb with the descending duodenum to avoid surgical intervention if possible - General surgery consulted: Plan for exploratory laparotomy and possible Billroth II on Sunday (10/21) - Morphine 2 mg IV every 4 hours as needed for pain #Acute blood loss anemia Hemoglobin 14.6 --> 12.7 Plan: -Monitor H&H. Transfusing for Hgb <7 or symptomatic. -Avoid NSAIDs/ASA/chemical prophylaxis #Meth abuse Patient denies illicit drug use, however tested positive for methamphetamines on previous visit. 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 Yin, and attending physician, Dr. España . Kayode Wolfe DO Attending Provider Attestation/Addendum Mary Rosen DO, attest that I was physically present for the jimenez portions of the service and evaluated the patient with the resident and I reviewed and discussed the case with the resident and agree with the resident's findings and plans of care as documented above Patient seen and evaluated this a.m. NG tube is in place with coffee-ground appearing output. Patient states that he had not eaten for 3 days due to worsening of abdominal pain. He currently feels improved. Patient had last left AMA about 2 weeks ago and 2 weeks prior to that due to impatience and having been NPO. Patient had stated that he would go to [place], but did not receive any treatment there. Patient remains to be meth positive. Explained to patient that he will need to have the surgery that was explained to him last admission. However, he would need to remain n.p.o. for several days if he were to agree with surgery. Patient demonstrated and verbalized understanding. Case was discussed with surgery, recommends placing patient on PPN in anticipation of the surgery. Plan for surgery this week. Will follow-up with GI recommendations otherwise.
[2024-10-19] MEDS: cefTRIAXone/D5w 1gm IV premix 1 GM/50 ML BAG IV (12:04)
[2024-10-19 15:50] LABS: HIV (1&2) Antibody Rapid Non-Reactive
--- NOTE | 2024-10-19 17:19 | PD.IMCONS ---
HPI Data of Consult Requesting Physician: Myron Awad MD Primary Care Provider: Physician No Primary/Family Consult Narrative Reason for consult: Hematemesis nausea vomiting History of present illness: 54 years old male comes in for evaluation to the emergency room with nausea vomiting and hematemesis Presenting hemoglobin hematocrit 14.6 and 42.4 which is gone down to 12.7 and 37.2 with a platelet count of 388,000 BUN/creatinine [address] scan of the abdomen pelvis with contrast showed markedly distended stomach suggestive of gastric outlet obstruction Patient had a previous endoscopy done by me on last visit had a large duodenal ulcer with stenosis of the descending duodenum with a duodenal bulb but the endoscope was able to go through that Patient left AMA last time cc:: cc: Myron Awad MD Review of Systems Review of Systems Systems Reviewed: All systems reviewed, normal except as documented Past Medical History Surgical History OTHER SURGICAL HX: As in the history of present illness Meds Home Medications and Allergies Home Medications ?Medication ?Instructions ?Recorded ?Confirmed ?Type No Known Home Medications 09/19/24 10/19/24 History Allergies Allergy/AdvReac Type Severity Reaction Status Date / Time No Known Allergies Allergy Verified 10/18/24 19:34 Exam Vital Signs Temp Pulse Resp BP Pulse Ox O2 Del Method 97.0 F 96 18 94/64 96 Room Air 10/19/24 16:00 10/19/24 16:00 10/19/24 16:00 10/19/24 16:00 10/19/24 16:00 10/19/24 16:00 Constitutional Comments: Alert oriented Routine Respiratory Exam Comments: Normal to auscultation Routine Abdominal Exam Comments: Soft somewhat distended NGT in place Results Labs 10/19/24 04:23 10/19/24 04:23 Labs: Short CBC 10/18/24 10/19/24 Range/Units 20:11 04:23 WBC 7.4 9.4 (3.8-10.6) Thou/mm3 Hgb 14.6 12.7 L (13.5-16.0) g/dL Hct 41.4 37.2 L (41.0-53.0) % Plt Count 550 H D 388 D (140-440) Thou/mm3 BMP 10/18/24 10/19/24 20:11 04:23 Sodium 142 136 Potassium 3.4 3.5 Chloride 97 L 97 L Carbon Dioxide 29.6 27.4 BUN 21 22 Creatinine 1.3 1.3 Glucose 145 H 106 Calcium 11.0 H 9.2 D Liver Function 10/18/24 10/19/24 Range/Units 20:11 04:23 Total Bilirubin 0.6 0.4 (0.3-1.2) mg/dL AST 21 19 (0-34) U/L ALT 16 12 (10-49) U/L Alkaline Phosphatase 115 97 (46-116) U/L Albumin 4.9 4.1 D (3.5-5.0) gm/dL Urine 10/19/24 Range/Units 05:11 Urine Color Yellow (Lt Yel-Yel) Urine Clarity Clear (Clear/Hazy) Urine pH 6.5 (5.0-7.0) Ur Specific [place] 1.020 (1.001-1.035) Urine Protein 1+ A (Neg - Trace) Urine Glucose (UA) Trace (Negative) Assessment and Plan Additional Assessment & Plan Additional Plan: # Gastric SUCTION most likely due to edema due to large duodenal ulcer causing obstruction at the level of duodenal bulb and descending duodenum # Downward trending hemoglobin hematocrit Plan Continue IV Protonix Consent obtained for fiberoptic esophagogastroduodenoscopy with possible therapeutic intervention possible balloon dilatation of the duodenal bulb with the descending duodenum To avoid surgical intervention if possible N.p.o. Serial CBC will follow the patient Thank you very much for the opportunity to participate in the care of this patient
--- NOTE | 2024-10-19 17:26 | PD.SURCONS ---
HPI Consult details Consult date: 10/19/24 Reason for consultation narrative: Gastric outlet obstruction from chronic duodenal ulcer History of present illness: 54-year-old male with history of tobacco use disorder and methamphetamine use was admitted 2 weeks ago. He was noted to have large duodenal ulcer causing gastric outlet obstruction. Patient left the hospital AGAINST MEDICAL ADVICE. He was readmitted with hematemesis and a CT scan revealed large and distended stomach consistent with gastric outlet obstruction. An NG tube was placed and patient was started on Protonix drip. Meds Home Medications and Allergies Home Medications ?Medication ?Instructions ?Recorded ?Confirmed ?Type No Known Home Medications 09/19/24 10/19/24 History Allergies Allergy/AdvReac Type Severity Reaction Status Date / Time No Known Allergies Allergy Verified 10/18/24 19:34 Exam Vital Signs Temp Pulse Resp BP Pulse Ox O2 Del Method 97.0 F 96 18 94/64 96 Room Air 10/19/24 16:00 10/19/24 16:00 10/19/24 16:00 10/19/24 16:00 10/19/24 16:00 10/19/24 16:00 Constitutional Constitutional: no acute distress Routine Abdominal Exam Comments: Abdomen is soft and mildly distended. He has minimal tenderness to palpation in epigastric area, no rebound tenderness or peritonitis at this time Results Results: Laboratory Laboratory results: results reviewed Results: Imaging CT scan - abdomen: report reviewed and image reviewed CT scan - pelvis: report reviewed and image reviewed Assessment & Plan Problem List (1) Gastric outlet obstruction: Status: Acute Plan Keep patient n.p.o. with NG tube decompression. Start parenteral nutrition. Will plan for exploratory laparotomy and possible Billroth II on Sunday.
[2024-10-20] VITALS (16 sets, daily range): BP systolic 90–130; BP diastolic 68–98; PULSE 65–101; RESP 10–18; TEMP 36.2–36.8; O2SAT 93–100; BMI 19.3
[2024-10-20 06:51] LABS: INR 1.0 (0.9-1.3); Partial Thromboplastin Time 32.4 Seconds (22.0-36.0); Prothrombin Time 11.4 Seconds (9.0-12.2)
[2024-10-20 07:27] LABS: Alanine Aminotransferase 8 U/L (10-49); Albumin, Serum 3.5 gm/dL (3.5-5.0); Albumin/Globulin Ratio 1.6 (1.2-2.2); Alkaline Phosphatase 88 U/L (46-116); Anion Gap 13 (7-16); Aspartate Amino Transferase 17 U/L (0-34); BUN/Creatinine Ratio 23 Ratio (12-20); Bilirubin,Total 0.6 mg/dL (0.3-1.2); Blood Urea Nitrogen 18 mg/dL (9-23); Calcium 8.4 mg/dL (8.3-10.6); Calcium (Corrected) 8.8 mg/dL (8.5-10.1); Carbon Dioxide 22.8 mMol/L (20.0-31.0); Chloride 100 mMol/L (98-107); Creatinine (Component) 0.8 mg/dL (0.6-1.3); Estimated Creatinine Clearance 87.7 mL/min (>60); Globulin 2.2 gm/dL (2.3-3.5); Glucose 63 mg/dL (74-106); Magnesium 1.6 mg/dL (1.6-2.6); Osmolality,Calculated 271 (275-295); Phosphorous 3.3 mg/dL (2.4-5.1); Potassium 3.7 mMol/L (3.4-5.1); Sodium 136 mMol/L (136-145); Total Protein 5.7 gm/dL (5.7-8.2); eGFR > 60 See Note
[2024-10-20] MEDS: cefTRIAXone/D5w 1gm IV premix 1 GM/50 ML BAG IV (08:27)
[2024-10-20] MEDS: PANTOPRAZOLE/NS 80MG IV PREMIX 80 MG/100 ML BAG 10 MG IV ×2 (08:28→18:30)
[2024-10-20 09:34] LABS: Basophils # (Auto) 0.0 Thou/mm3 (0.0-0.2); Basophils % (Auto) 1 % (0-2.5); Eosinophils # (Auto) 0.1 Thou/mm3 (0.0-0.5); Eosinophils % (Auto) 1 % (0-10); Hematocrit 34.8 % (41.0-53.0); Hemoglobin 11.9 g/dL (13.5-16.0); Immature Granulocytes Auto 0.01 Thou/mm3 (0.00-0.00); Lymphocytes # (Auto) 1.2 Thou/mm3 (1.0-4.8); Lymphocytes % (Auto) 20 % (10-50); Mean Corpuscular HGB Conc 34.2 g/dl (31.0-37.0); Mean Corpuscular Hemoglobin 33.7 pg (25.0-35.0); Mean Corpuscular Volume 99 fL (80-100); Monocytes # (Auto) 0.4 Thou/mm3 (0.0-0.8); Monocytes % (Auto) 6 % (0-12); Neutrophils # (Auto) 4.2 Thou/mm3 (1.8-7.7); Neutrophils % (Auto) 72 % (37-80); Nucleated Red Blood Cell # 0.00 Thou/mm3 (0.00-0.00); Nucleated Red Blood Cell % 0 /100 WBC (0); Platelet Count 381 Thou/mm3 (140-440); RDW Standard Deviation 47.0 fL (35.1-43.9); Red Blood Count 3.53 Miln/mm3 (4.50-5.90); White Blood Count 5.9 Thou/mm3 (3.8-10.6)
--- NOTE | 2024-10-20 11:24 | PC.DIETICIAN ---
Dietitian note:Start PPN D5% AA 4.25% at 30ml/hr x8hrs, then 60ml/hr x8hrs then 90ml/hr goal rate to provide with 500ml 20% IL 3x/week MWF Providse: 2160ml total vol, 1163total kcal, 92g AA, 108g dextrose, 100gm iv fat emulsion, LIR .74, GIR 1.29 Thank you
--- NOTE | 2024-10-20 11:25 | PD.SURPROG ---
Documentation for date of: 10/20/24 Subjective Subjective Narrative: Patient is seen and examined. Exam Vital Signs Temp Pulse Resp BP Pulse Ox O2 Del Method 97.6 F 91 18 110/72 93 L Room Air 10/20/24 08:00 10/20/24 08:00 10/20/24 08:00 10/20/24 08:00 10/20/24 08:00 10/20/24 08:00 Constitutional Constitutional: no acute distress Routine Abdominal Exam Comments: Abdomen is soft and mildly distended Assessment & Plan Plan Patient was evaluated by Dr. Huerta who is planning an EGD with possible dilatation in hopes of avoiding operation.
--- NOTE | 2024-10-20 11:35 | PC.SS ---
Patient Trevor Cannon is a 54 Year old male admitted for Hematemisis. SS met with patient at bedside to discuss discharge plan and verify demographic information. Patient reports she lives at home with friends. Patient reports his surrogate decision maker is his friend, Sujit Bootheuzair [phone]. Patient reports he is able to complete all ADL's independently. Patient reports his pharmacy of choice is [facility]. Patient does not have a PCP. At time of discharge patient will return home. Friend will provide transportation. Discharge plan; Home Next of Kin: Friend Sujit Bootheuzair [phone]
--- NOTE | 2024-10-20 11:59 | ESPR_ITS ---
<Statement entered by Scott Beauchamp MD - 10/20/24 21:11> Patient was examined and case was reviewed with team including attending physician. Note reviewed, I agree with most of its contents and agree with the patient's care as documented by Dr. Wolfe Patient seen today at the bedside found awake, alert, orientedx3. No overnight events reported. Vital signs stable at this time. Currently with NGT on LIS and parenteral nutrition in preparation for EGD and possible bilroth II procedure with GI and General surgery respectively. Patient will remain NPO during these interventions. Scott Beauchamp MD PGY-2 Documentation for date of: 10/20/24 Subjective Subjective Interval history: Patient was seen at bedside this morning and reports severe burning epigastric pain, rated 14/10. NG tube in place with about 850mL output. He was informed of the need to remain NPO in preparation for EGD tonight, with possible surgical intervention. Dr. Huerta confirmed EGD with possible dilatation. If the obstruction cannot be resolved endoscopically, surgery will be pursued with Dr. Ziegler. Exam Vital Signs Temp Pulse Resp BP Pulse Ox O2 Del Method 97.6 F 91 18 110/72 93 L Room Air 10/20/24 08:00 10/20/24 08:00 10/20/24 08:00 10/20/24 08:00 10/20/24 08:00 10/20/24 08:00 Narrative Exam Physical Exam General: No acute distress. Conversational and non-toxic appearing. NG tube in place. HEENT: Normocephalic, atraumatic, mucous membranes moist. Heart: Regular rate and rhythm, no murmurs. Lungs: Clear to auscultation with no wheezing or crackles. Abdomen: Soft, epigastric tenderness on palpation. No guarding or rebound tenderness. Neurologic: Alert and oriented x3, no gross neurological deficit, and patient able to move all 4 extremities. Extremities: No edema. Skin: No rash or ecchymoses. Objective Labs 10/21/24 05:43 10/21/24 05:43 Labs: Laboratory Results - last 24 hr 10/19/24 10/20/24 12:06 05:34 WBC 5.9 RBC 3.53 L Hgb 11.9 L Hct 34.8 L MCV 99 MCH 33.7 MCHC 34.2 RDW Std Deviation 47.0 H Plt Count 381 Neut % (Auto) 72 Lymph % (Auto) 20 [place] % (Auto) 6 Eos % (Auto) 1 Baso % (Auto) 1 Neut # (Auto) 4.2 Lymph # (Auto) 1.2 [place] # (Auto) 0.4 Eos # (Auto) 0.1 Baso # (Auto) 0.0 Immature Gran # (Auto) 0.01 H Absolute Nucleated RBC 0.00 Immature Gran % 0 Nucleated RBC % 0 PT 11.4 INR 1.0 APTT 32.4 Sodium 136 Potassium 3.7 Chloride 100 Carbon Dioxide 22.8 Anion Gap 13 BUN 18 Creatinine 0.8 D Estim Creat Clear Calc 87.7 eGFR > 60 BUN/Creatinine Ratio 23 H Glucose 63 L Calculated Osmolality 271 L Calcium 8.4 Corrected Calcium 8.8 Phosphorus 3.3 Magnesium 1.6 Total Bilirubin 0.6 AST 17 ALT 8 L Alkaline Phosphatase 88 Total Protein 5.7 Albumin 3.5 D Globulin 2.2 L Albumin/Globulin Ratio 1.6 HIV 1&2 Antibody Rapid Non-Reactive Quality Measures Quality Measures VTE prophylaxis Assessment & Plan Assessment Current Active Medications: Generic Name Dose Route Start Last Admin Trade Name Freq PRN Reason Stop Dose Admin Acetaminophen 650 mg 10/19/24 01:56 Acetaminophen Supp 650 Mg Supp ME 11/18/24 01:50 Q6HR PRN Fever > 100.4 or mild pain 1-3 Pantoprazole Sodium 80 mg in 100 mls @ 10 mls/hr 10/19/24 01:56 10/20/24 08:28 Protonix/Ns 80mg Iv Premix IV 10/21/24 23:55 10 mls/hr Q10H CHASITY Administration Ceftriaxone Sodium/Dextrose 1 gm in 50 mls @ 100 mls/hr 10/19/24 10:57 10/20/24 08:27 Rocephin/D5w 1gm Iv Premix IV 10/26/24 10:56 100 mls/hr QDAY CHASITY Administration Potassium Chloride 40 meq/ 2,044 mls @ 30 mls/hr 10/20/24 18:00 Magnesium Sulfate 2 gm/ IV 10/21/24 17:59 Calcium Gluconate 1 gm/ .Q24H CHASITY Multivitamins/Minerals 10 ml/ Amino Acids/Electrolytes/ Dextrose Fat Emulsion Intravenous 500 mls @ 32 mls/hr 10/20/24 18:00 Intralipid 20% Iv IV 11/19/24 17:59 [email or web address] [facility] Morphine Sulfate 2 mg 10/19/24 11:03 Morphine Sulf Inj 10 Mg/Ml Vial IVP 10/24/24 01:50 Q4HR PRN PAIN SCALE 4-10(Mod-Sev Ondansetron HCl 4 mg 10/19/24 01:55 Ondansetron Inj 2 Mg/Ml Inj 2 Ml IVP 11/18/24 01:54 Q6HR PRN NAUSEA OR VOMITING Protocol Pharmacy Consult 1 each 10/20/24 07:47 Pha To Consult Parenteral Nutr 1 Each Each XX 11/19/24 07:46 PRN PRN CONSULT Plan 54 year old male with past medical history of large duodenal ulcer and meth abuse presented with 3 days of recurrent hematemesis and epigastric abdominal pain, admitted for gastric outlet obstruction. #Gastric outlet obstruction #Hematemesis Patient previously presented twice before for similar symptoms. Left AMA both times. EGD (09/30) with Dr. Huerta: large duodenal ulcer and pyloric channel stenosis resulting in gastric outlet obstruction. CT abd/pelvis (10/18): Unchanged markedly fluid distended stomach, gastric outlet obstruction pattern. Loss of appetite, not eaten in 3 days. Plan: - Keep NPO with NG tube decompression. - Start parental nutrition, keep albumin > 3. - Continue Protonix drip. - IV fluids. - GI consulted: Plan for EGD on 10/20 with possible therapeutic intervention, possible balloon dilatation of the duodenal bulb with the descending duodenum to avoid surgical intervention if possible. - General surgery consulted: Plan for exploratory laparotomy and possible Billroth II on Sunday (10/21) if EGD unable to resolve obstruction. - Morphine 2 mg IV every 4 hours as needed for pain. #Acute blood loss anemia Hemoglobin 14.6 --> 12.7 --> 11.9 Plan: -Monitor H&H. Transfusing for Hgb < 7 or symptomatic. -Avoid NSAIDs/ASA/chemical prophylaxis. #Meth abuse Patient denies illicit drug use, however tested positive for methamphetamines on previous visit. 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 - Addiction counseling. Health Maintenance: DVT prophylaxis: SCDs GI prophylaxis: Protonix drip Diet: NPO, PPN Lines: Peripheral IV Code status: Full code Patient plan of care was discussed with the senior resident, Dr. Yin, and attending physician, Dr. España . Kayode Wolfe DO Attending Provider Attestation/Addendum I, Mary España DO, attest that I was physically present for the jimenez portions of the service and evaluated the patient with the resident and I reviewed and discussed the case with the resident and agree with the resident's findings and plans of care as documented above Patient seen and eval this a.m. Patient states that he is feeling well. He complains that the NG tube is very irritating. However explained to patient that he is scheduled for surgery tomorrow and endoscopy this evening. Patient is agreeable to plan, but looks forward to having NG tube removed. Emphasized to patient that he will be n.p.o. for several days after surgery due to bowel rest. Explained to patient that he is currently receiving PPN for nutrition. Patient verbalized understanding and willing to comply. Will follow with endoscopy results. I discussed the case with Dr. Ziegler plans to do surgery tomorrow.
--- NOTE | 2024-10-20 16:02 | PC.SS ---
SS follow up note; Patient is pending OR with Dr. Ziegler on Sunday, patient will discharge home when medically cleared.
[2024-10-20] MEDS: POT CHL ADDITIVE IV (18:18)
[2024-10-20] MEDS: [UNRECOGNIZED DRUG - OTHER] IV (18:18)
[2024-10-20] MEDS: MAGNESIUM SULF IV (18:18)
[2024-10-20] MEDS: FAT EMULSIONS 20% IV 500 ML 32 ML IV (18:22)
[2024-10-20] MEDS: SODIUM CHLORIDE 0.9% 500 ML 500 ML 20 ML IV (21:45)
--- NOTE | 2024-10-20 22:22 | SUR.PHASEI ---
pt arrived to PACU via gurney drowsy but arouses to voice, breathing unlabored, report from Candace CARLISLE
--- NOTE | 2024-10-20 22:50 | SUR.PHASEI ---
pt drowsy but arouses to voice, breathing unlabored, report called to Marlene RN, pt transferred to room at this time.
[2024-10-21] VITALS: BP 111/73; PULSE 74; PULSE 75; RESP 17; TEMP 36.2; O2SAT 95
[2024-10-21 04:00] VITALS: BP 107/66; PULSE 64; PULSE 76; RESP 17; TEMP 36.2; O2SAT 99
[2024-10-21] MEDS: PANTOPRAZOLE/NS 80MG IV PREMIX 80 MG/100 ML BAG 10 MG IV (04:02)
[2024-10-21 06:31] LABS: Basophils # (Auto) 0.0 Thou/mm3 (0.0-0.2); Basophils % (Auto) 1 % (0-2.5); Eosinophils # (Auto) 0.1 Thou/mm3 (0.0-0.5); Eosinophils % (Auto) 2 % (0-10); Hematocrit 32.9 % (41.0-53.0); Hemoglobin 11.3 g/dL (13.5-16.0); Immature Granulocytes Auto 0.01 Thou/mm3 (0.00-0.00); Lymphocytes # (Auto) 1.4 Thou/mm3 (1.0-4.8); Lymphocytes % (Auto) 28 % (10-50); Mean Corpuscular HGB Conc 34.3 g/dl (31.0-37.0); Mean Corpuscular Hemoglobin 33.5 pg (25.0-35.0); Mean Corpuscular Volume 98 fL (80-100); Monocytes # (Auto) 0.3 Thou/mm3 (0.0-0.8); Monocytes % (Auto) 7 % (0-12); Neutrophils # (Auto) 3.0 Thou/mm3 (1.8-7.7); Neutrophils % (Auto) 62 % (37-80); Nucleated Red Blood Cell # 0.00 Thou/mm3 (0.00-0.00); Nucleated Red Blood Cell % 0 /100 WBC (0); Platelet Count 394 Thou/mm3 (140-440); RDW Standard Deviation 45.4 fL (35.1-43.9); Red Blood Count 3.37 Miln/mm3 (4.50-5.90); White Blood Count 4.8 Thou/mm3 (3.8-10.6)
[2024-10-21 07:02] LABS: Alanine Aminotransferase 7 U/L (10-49); Albumin, Serum 3.5 gm/dL (3.5-5.0); Albumin/Globulin Ratio 1.6 (1.2-2.2); Alkaline Phosphatase 80 U/L (46-116); Anion Gap 8 (7-16); Aspartate Amino Transferase 14 U/L (0-34); BUN/Creatinine Ratio 28 Ratio (12-20); Bilirubin,Total 0.3 mg/dL (0.3-1.2); Blood Urea Nitrogen 22 mg/dL (9-23); Calcium 8.6 mg/dL (8.3-10.6); Calcium (Corrected) 9.0 mg/dL (8.5-10.1); Carbon Dioxide 24.9 mMol/L (20.0-31.0); Chloride 101 mMol/L (98-107); Creatinine (Component) 0.8 mg/dL (0.6-1.3); Estimated Creatinine Clearance 87.7 mL/min (>60); Globulin 2.2 gm/dL (2.3-3.5); Glucose 79 mg/dL (74-106); Magnesium 1.5 mg/dL (1.6-2.6); Osmolality,Calculated 270 (275-295); Phosphorous 3.4 mg/dL (2.4-5.1); Potassium 3.4 mMol/L (3.4-5.1); Sodium 134 mMol/L (136-145); Total Protein 5.7 gm/dL (5.7-8.2); Triglycerides 148 mg/dL (30-150); eGFR > 60 See Note
[2024-10-21 08:00] VITALS: BP 111/67; PULSE 67; PULSE 74; RESP 19; TEMP 36.7; O2SAT 98
--- NOTE | 2024-10-21 09:10 | PC.NURSE ---
Dr Ziegler at bedside with nuclear powerplant supervisor explaining the urgent need for surgery and the consequences that would/could result if he does not have the surgery, including . Pt is skeptical and still deciding if he wants to do the surgery. The patient was made aware the surgery is on the surgical tracker at 1415.
[2024-10-21 09:49] VITALS: BMI 19.3
--- NOTE | 2024-10-21 09:53 | PD.RESPRO ---
Documentation for date of: 10/21/24 Exam Vital Signs Temp Pulse Resp BP Pulse Ox O2 Del Method O2 Flow Rate 98.0 F 74 19 111/67 98 Room Air 2 10/21/24 08:00 10/21/24 08:00 10/21/24 08:00 10/21/24 08:00 10/21/24 08:00 10/21/24 08:00 10/20/24 22:32 Objective Labs 10/21/24 05:43 10/21/24 05:43 Labs: Laboratory Results - last 24 hr 10/21/24 05:43 WBC 4.8 RBC 3.37 L Hgb 11.3 L Hct 32.9 L MCV 98 MCH 33.5 MCHC 34.3 RDW Std Deviation 45.4 H Plt Count 394 Neut % (Auto) 62 Lymph % (Auto) 28 [place] % (Auto) 7 Eos % (Auto) 2 Baso % (Auto) 1 Neut # (Auto) 3.0 Lymph # (Auto) 1.4 [place] # (Auto) 0.3 Eos # (Auto) 0.1 Baso # (Auto) 0.0 Immature Gran # (Auto) 0.01 H Absolute Nucleated RBC 0.00 Immature Gran % 0 Nucleated RBC % 0 Sodium 134 L Potassium 3.4 Chloride 101 Carbon Dioxide 24.9 Anion Gap 8 BUN 22 Creatinine 0.8 Estim Creat Clear Calc 87.7 eGFR > 60 BUN/Creatinine Ratio 28 H Glucose 79 Calculated Osmolality 270 L Calcium 8.6 Corrected Calcium 9.0 Phosphorus 3.4 Magnesium 1.5 L Total Bilirubin 0.3 AST 14 ALT 7 L Alkaline Phosphatase 80 Total Protein 5.7 Albumin 3.5 Globulin 2.2 L Albumin/Globulin Ratio 1.6 Triglycerides 148 Quality Measures Quality Measures VTE prophylaxis Assessment & Plan Assessment Current Active Medications: Generic Name Dose Route Start Last Admin Trade Name Freq PRN Reason Stop Dose Admin Acetaminophen 650 mg 10/19/24 01:56 Acetaminophen Supp 650 Mg Supp PA 11/18/24 01:50 Q6HR PRN Fever > 100.4 or mild pain 1-3 Pantoprazole Sodium 80 mg in 100 mls @ 10 mls/hr 10/19/24 01:56 10/21/24 04:02 Protonix/Ns 80mg Iv Premix IV 10/21/24 23:55 10 mls/hr Q10H CHASITY Administration Ceftriaxone Sodium/Dextrose 1 gm in 50 mls @ 100 mls/hr 10/19/24 10:57 10/20/24 08:27 Rocephin/D5w 1gm Iv Premix IV 10/26/24 10:56 100 mls/hr QDAY CHASITY Administration Potassium Chloride 40 meq/ 2,044 mls @ 30 mls/hr 10/20/24 18:00 10/20/24 18:18 Magnesium Sulfate 2 gm/ IV 10/21/24 17:59 30 mls/hr Calcium Gluconate 1 gm/ .Q24H CHASITY Administration Multivitamins/Minerals 10 ml/ Amino Acids/Electrolytes/ Dextrose Fat Emulsion Intravenous 500 mls @ 32 mls/hr 10/20/24 18:00 10/20/24 18:22 Intralipid 20% Iv IV 11/19/24 17:59 32 mls/hr [id number] CHASITY Administration Sodium Chloride 500 mls @ 20 mls/hr 10/20/24 21:45 10/20/24 21:45 Ns IV 10/21/24 21:44 20 mls/hr .Q24H ONE Administration Morphine Sulfate 2 mg 10/19/24 11:03 Morphine Sulf Inj 10 Mg/Ml Vial IVP 10/24/24 01:50 Q4HR PRN PAIN SCALE 4-10(Mod-Sev Ondansetron HCl 4 mg 10/19/24 01:55 Ondansetron Inj 2 Mg/Ml Inj 2 Ml IVP 11/18/24 01:54 Q6HR PRN NAUSEA OR VOMITING Protocol Pharmacy Consult 1 each 10/20/24 07:47 Pha To Consult Parenteral Nutr 1 Each Each XX 11/19/24 07:46 PRN PRN CONSULT
--- NOTE | 2024-10-21 10:15 | PC.NURSE ---
Pt walked down the ag dressed with both IVs and NG tube removed asking for the papers to sign so he can leave. The Dr Ibarra and her team happened to be rounding at the time. Dr Oliver provided extensive education about the consequences of leaving and urged the patient to stay, however the patient still requested to sign AMA papers and leave. He was encouraged to return. The patient remained AAOx4 throughout my shift until his exit. He left the [facility] on foot towards the elevators. Consulting doctors notified of his departure.
--- NOTE | 2024-10-21 10:58 | EVENTNT_ITS ---
Documentation for date of: 10/21/24 Event Note Event Note: Patient was scheduled for exploratory laparotomy and Billroth II. I had a lengthy discussion with the patient via civil engineering professional explaining the benefits of the operation as well as the risks. Patient was hesitant to proceed with surgical intervention and wants to think about it. I was later notified by the hospitalist team as well as the patient's nurse that patient has left AGAINST MEDICAL ADVICE.
--- NOTE | 2024-10-21 17:12 | ESDS_ITS ---
<Statement entered by Mary España DO - 10/22/24 13:14> I, Mary España DO, attest that I was physically present for the jimenez portions of the service and evaluated the patient with the resident and I reviewed and discussed the case with the resident and agree with the resident's findings and plans of care as documented above <Statement entered by Scott Beauchamp MD - 10/21/24 20:40> Patient was examined and case was reviewed with team including attending physician. Note reviewed, I agree with most of its contents and agree with the patient's care as documented by Dr. Aiden Beauchamp MD PGY-2 Planned Discharge Date 10/21/24 DS: Providers Provider Date of admission: 10/19/24 01:57 Primary care physician: Physician No Primary/Family Admitting Provider: Myron Awad MD Attending Provider on Admission: Mary España DO Consults: 10/19/24 01:54 Consult to Gastroenterology Routine Comment: Hematemesis, GOO Consulting Provider: Karen Huerta 10/19/24 10:54 Consult to General Surgery Stat Comment: Gastric outlet obstruction and hematemesis Consulting Provider: Bijal Zigeler 10/19/24 11:21 [employer] Referral - Knowledge Deficit Routine Comment: Positive screening for knowledge deficit needs. 10/19/24 12:18 Referral Registered Dietitian Stat Comment: For PPN Attending Provider on DC: Mary España DO Discharging Provider: Kayode Wolfe DO Anticipated date of discharge: 10/21/24 DS: Diagnosis Problem List Completed Was Problem List Reviewed/Reconciled?: Yes Hospital Course Hospital Course Hospital course: 54-year-old male with a history of a large duodenal ulcer and methamphetamine use disorder, previously admitted twice in September 2024 for similar presentations of hematemesis and epigastric pain. An EGD on 09/30/24 revealed a large duodenal ulcer with pyloric channel stenosis resulting in gastric outlet obstruction. The patient left AMA on both prior admissions before planned surgical intervention. He presented again on 10/18/24 with 3 days of recurrent hematemesis, worsening epigastric abdominal pain, anorexia, and inability to tolerate oral intake. On arrival he was hemodynamically stable. CT abdomen and pelvis showed a markedly fluid distended stomach with gastric outlet obstruction pattern, unchanged from prior imaging. NGT was placed to low intermittent suction with coffee-ground output and patient was started on PPN and Protonix. Hemoglobin trended from 14.6-5.7 remained stable without need of transfusion. EGD was performed on 10/20/24 and surgery was recommended for 10/21/2024. On the morning of 10/21/2024, patient was alert, oriented, with stable vitals signs. He demonstrated understanding for definitive treatment plan with surgery. The surgical team and hospitalist team both talked to patient in great length about the benefits of the surgery, as well as the risks of not going through with surgery. Patient was initially in agreement with plan of care, but then stated he must leave for personal business. The patient ultimately left AGAINST MEDICAL ADVICE. The risks of leaving AMA were explained to the patient in detail, including, but not limited to, the risk of rebleeding, bowel perforation, ulcer progression, surgical complications, and . The patient verbalized understanding of these risks but declined further treatment. He was advised to return to the emergency department if symptoms worsened. 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 Benito Beauchamp and my attending . Kayode Wolfe, DO Status at Discharge Overall status at discharge: patient is progressing back to baseline Time Spent with Patient Time attestation: Total time spent providing and/or coordinating discharge services: Time spent: Greater than 30 minutes Exam Vital Signs Temp Pulse Resp BP Pulse Ox O2 Del Method O2 Flow Rate 98.0 F 74 19 111/67 98 Room Air 2 10/21/24 08:00 10/21/24 08:00 10/21/24 08:00 10/21/24 08:00 10/21/24 08:00 10/21/24 08:00 10/20/24 22:32 Narrative Exam Physical Exam General: No acute distress. Conversational and non-toxic appearing. NG tube in place. HEENT: Normocephalic, atraumatic, mucous membranes moist. Heart: Regular rate and rhythm, no murmurs. Lungs: Clear to auscultation with no wheezing or crackles. Abdomen: Soft, epigastric tenderness on palpation. No guarding or rebound tenderness. Neurologic: Alert and oriented x3, no gross neurological deficit, and patient able to move all 4 extremities. Extremities: No edema. Skin: No rash or ecchymoses. Discharge Plan Plan Patient Disposition: Left Against Medical Advice Prescriptions/Referrals Prescriptions/Med Rec: No Action No Known Home Medications Referrals: No Primary/Family,Physician [Primary Care Provider] - Patient/Caregiver Discharge Instructions Print Language: Thai Quality Discharge Quality Measures none
--- NOTE | 2024-10-21 22:48 | ESPR_ITS ---
Documentation for date of: 10/21/24 Subjective Subjective Interval history: late entry for the note Patient signed out AGAINST MEDICAL ADVICE after all the workup we did over here including patient being on the schedule for surgical intervention for the large duodenal ulcer and gastric outlet obstruction Exam Vital Signs Temp Pulse Resp BP Pulse Ox O2 Del Method O2 Flow Rate 98.0 F 74 19 111/67 98 Room Air 2 10/21/24 08:00 10/21/24 08:00 10/21/24 08:00 10/21/24 08:00 10/21/24 08:00 10/21/24 08:00 10/20/24 22:32 Objective Labs 10/21/24 05:43 10/21/24 05:43 Labs: Laboratory Results - last 24 hr 10/21/24 05:43 WBC 4.8 RBC 3.37 L Hgb 11.3 L Hct 32.9 L MCV 98 MCH 33.5 MCHC 34.3 RDW Std Deviation 45.4 H Plt Count 394 Neut % (Auto) 62 Lymph % (Auto) 28 [place] % (Auto) 7 Eos % (Auto) 2 Baso % (Auto) 1 Neut # (Auto) 3.0 Lymph # (Auto) 1.4 [place] # (Auto) 0.3 Eos # (Auto) 0.1 Baso # (Auto) 0.0 Immature Gran # (Auto) 0.01 H Absolute Nucleated RBC 0.00 Immature Gran % 0 Nucleated RBC % 0 Sodium 134 L Potassium 3.4 Chloride 101 Carbon Dioxide 24.9 Anion Gap 8 BUN 22 Creatinine 0.8 Estim Creat Clear Calc 87.7 eGFR > 60 BUN/Creatinine Ratio 28 H Glucose 79 Calculated Osmolality 270 L Calcium 8.6 Corrected Calcium 9.0 Phosphorus 3.4 Magnesium 1.5 L Total Bilirubin 0.3 AST 14 ALT 7 L Alkaline Phosphatase 80 Total Protein 5.7 Albumin 3.5 Globulin 2.2 L Albumin/Globulin Ratio 1.6 Triglycerides 148 Impressions Impression: Large duodenal ulcer Gastric outlet obstruction Patient signed out AGAINST MEDICAL ADVICE He is welcome to come back if he changes his mind for surgical intervention Assessment & Plan A&P Narrative # Gastric SUCTION most likely due to edema due to large duodenal ulcer causing obstruction at the level of duodenal bulb and descending duodenum # Downward trending hemoglobin hematocrit Plan Continue IV Protonix Consent obtained for fiberoptic esophagogastroduodenoscopy with possible therapeutic intervention possible balloon dilatation of the duodenal bulb with the descending duodenum To avoid surgical intervention if possible N.p.o. Serial CBC will follow the patient Thank you very much for the opportunity to participate in the care of this patient Time Spent With Patient Time: Total time spent is greater than 50% in coordination of care (as documented) at patient's floor/unit and/or counseling patient:
== END 2024-10-21 10:15 | disposition left against medical advice (07) | DRG 254 ==
LOC: SERX 10-19 00:46 → SERHOLD 10-20 07:03 → S3SX 10-20 07:03
PROVIDERS: Nurse Practitioner Family; Specialist; Student in an Organized Health Care Education/Training Program; Admitting Provider Student in an Organized Health Care Education/Training Program; Emergency Provider Emergency Medicine; Visit Provider Internal Medicine
PROC: (CPT 43239; principal; 2024-10-20 19:00)
DX: K31.1 Adult hypertrophic pyloric stenosis (principal); K26.4 Chronic or unspecified duodenal ulcer with hemorrhage; F17.210 Nicotine dependence, cigarettes, uncomplicated; F15.10 Other stimulant abuse, uncomplicated; D62 Acute posthemorrhagic anemia; K56.7 Ileus, unspecified; Z53.29 Procedure and treatment not carried out because of patient's decision for other reasons
CPT/HCPCS: 36415; 74177; 80053; 80061; 80307; 81001; 82271; 83690; 83735; 83880; 84100; 84478; 85025; 85610; 85730; 86703; 86850; 86900; 86901; 87081; 87086; 93225; 96361; 96365; 96366; 96374; 96375; 99285; A4649; J0612; J0696; J1200; J2250; J2470; J2765; J3010; J3475; J3480; J3490; J7120; J7999; Q9967; A9270

== ENCOUNTER 2024-11-11 10:20 | Inpatient (IN) | payer SELFPAY ==
[2024-11-11] VITALS (10 sets, daily range): BP systolic 133–171; BP diastolic 74–98; PULSE 75–110; RESP 16–97; TEMP 36.6–37.3; O2SAT 92–99; BMI 26.9
--- NOTE | 2024-11-11 10:25 | PD.EDGIBLD ---
ED GI Bleed RME/HPI General Chief complaint: Nausea/Vomiting/Diarrhea Stated complaint: ABDOMINAL PAIN Time Seen by Provider: 11/11/24 10:30 Arrival date/time: 11/11/24 10:20 RME / HPI RME / HPI Narrative: 54 year old male with history of large duodenal ulcer with pyloric channel stenosis resulting in gastric outlet obstruction, admitted here multiple times for GI bleed (09/18/2024, 09/29/2024, 10/19/2024), and methamphetamine use presents to the ED BIBA for evaluation of epigastric abdominal pain beginning 3 days ago and remaining constant since. Pain described as aching fullness in sensation, rated 6/10 in severity. Accompanied by multiple episodes of coffee ground emesis a day, also beginning 3 days ago. Denies fevers, chills, sweats, chest pain, cough, shortness of breath, diarrhea, or urinary symptoms. Per EMR review, during patients last admission 10/19-10/21/2024 he was scheduled to undergo exploratory laparotomy and Billroth II by Dr. Ziegler on 10/21/2024. However, signed out against medical advice. Related Data Home Medications ?Medication ?Instructions ?Recorded ?Confirmed No Known Home Medications 09/19/24 10/19/24 Allergies Allergy/AdvReac Type Severity Reaction Status Date / Time No Known Allergies Allergy Verified 11/11/24 10:37 Review of Systems Review of Systems Systems Reviewed: All systems reviewed, normal except as documented Past Medical History Past Medical History GASTROINTESTINAL: Positive Gastrointestinal Bleed and Ulcer Family History FAMILY HISTORY: Negative Family Psychiatric Problems, Family Respiratory Disorders, Family Cardiac Disorders, Family Gastrointestinal Problems, Family Cancer, Family Surgery or Family Anesthesia Reaction Social History SMOKING STATUS: Current every day smoker ED Exam Narrative Physical exam: GENERAL APPEARANCE: alert and oriented x 4, well-developed, well-nourished, poor hygiene, unkempt HEENT: Normocephalic, atraumatic; pupils equal, round, reactive to light; EOMI; mucous membranes pink, moist; oropharynx clear NECK: Supple LUNGS: CTABL; no wheezes, no rales, no rhonchi HEART: Regular rate, regular rhythm; normal S1, S2; no murmurs ABDOMEN: mildly distended; normal BS; soft, mild diffuse tenderness greater in the epigastrium, no guarding, no rebound; no masses, no organomegaly, no hernia BACK: no CVA tenderness EXTREMITIES: atraumatic; no edema NEUROLOGIC: awake; alert and oriented x4; cranial nerves II-XII grossly intact; no focal sensory or motor deficits PSYCHIATRIC: appropriate mood and affect SKIN: warm, dry, normal color; no rashes Course Quality Measures none Orders Category Date Time Status Software Design Analyst NOW Care 11/11/24 10:27 Active EKG (ED ONLY) *Do not use* NOW Care 11/11/24 10:27 Completed Consult to Gastroenterology Stat Cons 11/11/24 13:15 Ordered EKG (ED Only) Stat Exams 11/11/24 10:27 Draft XR abdomen series w chest 1V Stat Exams 11/11/24 12:09 Completed Alcohol, Blood Medical Stat Lab 11/11/24 10:30 Completed CBC Stat Lab 11/11/24 10:30 Completed Comprehensive Metabolic Panel Stat Lab 11/11/24 10:30 Completed Drug Screen,Urine Stat Lab 11/11/24 10:29 Ordered Lipase Stat Lab 11/11/24 10:30 Completed Magnesium Stat Lab 11/11/24 10:30 Completed Partial Thromboplastin Time Stat Lab 11/11/24 10:30 Completed Prothrombin Time with INR Stat Lab 11/11/24 10:30 Completed Troponin I Stat Lab 11/11/24 10:30 Completed UA, C/S IF [Urinalysis, C/S if Indicated] Stat Lab 11/11/24 10:29 Ordered POTASSIUM CHL 10 mEq IVPB [Kcl Ivpb] Med 11/11/24 11:48 Active 10 meq in 100 ml IV Q1H Pantoprazole Inj [Protonix Inj] Med 11/11/24 10:27 Discontinued 80 mg IVP X1 ONE Pantoprazole/Ns 80Mg IV Premix [Protonix/NS 80mg IV Med 11/11/24 10:29 Active Premix] 80 mg in 100 ml IV X1 Sodium Chloride 0.9% 1000 ml [Ns] 1,000 ml Med 11/11/24 10:27 Discontinued IV 999 mls/hr Sodium Chloride 0.9% 1000 ml [Ns] 1,000 ml Med 11/11/24 11:48 Discontinued IV 999 mls/hr Vital Signs Vital signs: Vital Signs Temperature 98.0 F 11/11/24 10:30 Pulse Rate 78 11/11/24 10:30 Respiratory Rate 16 11/11/24 10:30 Blood Pressure 155/98 H 11/11/24 10:30 Pulse Oximetry (%) 99 11/11/24 10:30 Oxygen Delivery Method Room Air 11/11/24 10:30 Pulse ox is 99% on room air which is adequate. GI Bleed MDM Narrative MDM Narrative:: Jeanine Rosen am scribing for and in the presence of Dr. Rajput. Patient data External records reviewed:: [facility] previous records (I reviewed most recent admission from 10/19-10/21/2024 ) and EMS form Clinical information provided by:: patient and EMS Social determinants that could affect healthcare access:: substance use (Methamphetamine ) Patient has the following chronic illnesses:: large duodenal ulcer with pyloric channel stenosis resulting in gastric outlet obstruction, admitted here multiple times for GI bleed (09/18/2024, 09/29/2024, 10/19/2024), and methamphetamine use How is presenting disease/condition affected by chronic disease/condition?: exacerbated by Evaluation data The following diagnostics were reviewed and interpreted by me:: lab results, radiology exam(s) and EKG tracing(s) (11/11/2024 @ 10:44 AM. NSR, rate 76, small Q-waves in lead II III aVF v4 through v6, T-wave inversion in V1 through V3, no acute ischemic changes. ) Lab and/or radiology exams considered but not ordered:: None Interpretation Summary: Ordering Physician: Gerri Rajput MD Date of Service: 11/11/24 Procedure(s): XR abdomen series w chest 1V Accession Number(s): [id number] cc: Yakov Sheridan MD; NO PRIMARY/FAMILY,PHYSICIAN; Gerri Rajput MD~ Examination: Abdominal series 3 views including AP chest TECHNIQUE: AP chest, AP supine AP upright abdomen 3 views Date and time: November 11, 2024 1301 hours INDICATIONS: Weakness altered mental status abdominal pain today. FINDINGS: Normal heart size. Lungs are clear. Nonobstructive bowel gas pattern. No free air Moderate stool throughout the colon IMPRESSION: Nonobstructive bowel gas pattern Dictated By: Yakov Sheridan MD Signed By: <Electronically signed by Yakov Sheridan MD in [place]> 11/11/24 1321 Medications / Prescriptions Medications or Prescriptions considered but not ordered:: None Medication administrations:: Medication Administration History Pantoprazole Sodium (Protonix/Ns 80mg Iv Premix) 80 mg in 100 mls @ 10 mls/hr IV X1 ONE Stop: 11/11/24 20:28 Last Admin: 11/11/24 10:57 Dose: 10 mls/hr Documented By: ED Potassium Chloride (Kcl Ivpb) 10 meq in 100 mls @ 100 mls/hr IV Q1H CHASITY Stop: 11/11/24 15:47 Last Admin: 11/11/24 13:18 Dose: 100 mls/hr Documented By: Infusion: 11/11/24 13:18 Dose: Infused Documented By: Admin: 11/11/24 12:18 Dose: 100 mls/hr Documented By: ED Discontinued Medications Sodium Chloride (Ns) 1,000 mls @ 999 mls/hr IV .Q1H1M ONE Stop: 11/11/24 11:27 Last Infusion: 11/11/24 11:58 Dose: Infused Documented By: Admin: 11/11/24 10:57 Dose: 999 mls/hr Documented By: ED Sodium Chloride (Ns) 1,000 mls @ 999 mls/hr IV .Q1H1M ONE Stop: 11/11/24 12:48 Last Infusion: 11/11/24 13:20 Dose: Infused Documented By: Admin: 11/11/24 12:17 Dose: 999 mls/hr Documented By: ED Pantoprazole Sodium (Pantoprazole Inj 40 Mg Vial) 80 mg IVP X1 ONE Stop: 11/11/24 10:28 Last Admin: 11/11/24 10:56 Dose: 80 mg Documented By: ED See above Consultations Consultation(s) initiated? (list below): Yes Consultation #1 (Physician, Specialty, Details): I spoke with GI Dr. Huerta, he agrees to consult. Consultation #2 (Physician, Specialty, Details): I spoke with resident working with Dr. España. Discussed patients PMHx, HPI, ED course, exam findings, labs, and radiology results. The hospitalist agree to accept the patient for admission. Diagnosis GI bleed differential diagnosis: esophageal varices, gastritis and Upper gastrointestinal hemorrhage Most likely diagnosis given after review of the tests above:: duodenal ulcer upper GI bleed coffee ground emesis Admission Indicated Admission indicated?: indicated Admission Request Was there a request for admission?: Yes Admission Attestation Admission request attestation: Discussed case with [] from Hospitalist service regarding admission. Discussed patients ED course, exam findings, labs, and radiology results. The Hospitalist [agrees,declines] to accept the patient for admission. Disposition Plan Disposition Plan: Admit Discharge Plan Plan Patient Disposition: Admit Acute Care w/in Hospital Prescriptions/Referrals Prescriptions/Med Rec: No Action No Known Home Medications Referrals: No Primary/Family,Physician [Primary Care Provider] - In 1 week Problem List Clinical Impression: Duodenal ulcer, UGIB (upper gastrointestinal bleed), Coffee ground emesis Patient/Caregiver Discharge Instructions Print Language: Georgian Stand Alone Forms: Anna Award Info., Patient Portal Info Letter
--- NOTE | 2024-11-11 10:27 | EKG_ITS ---
[facility] Test Date: 2024-11-11 Pat Name: KENZIE LUCIA Department: Room: - Gender: Male Writer Editor: : 1970 Requested By: Gerri Law Order Number: [id number] Reading MD: Gerri Law Measurements Intervals Victor Rate: 76 P: 77 ID: [id number] QRS: 70 QRSD: 98 T: 33 QT: 422 QTc: 475 Interpretive Statements SINUS RHYTHM No previous ECG available for comparison /store/S0/[id number]/ecg/[id number].pdf
--- NOTE | 2024-11-11 10:30 | PC.NURSE ---
Pt. here from home to room 1, pt. states he has been vomiting blood X 3 days, pt. states he has mid upper abdominal pain. Pt. states he has also been dizzy X 3 days. Pt. resting in bed 1 with his eyes closed. Pt. hands are black in color. No s/s of distress at this time.
[2024-11-11] MEDS: PANTOPRAZOLE/NS 80MG IV PREMIX 80 MG/100 ML BAG 10 MG IV (10:57)
[2024-11-11] MEDS: SODIUM CHLORIDE 0.9% 1000 ML 1,000 ML 999 ML IV ×2 (10:57→12:17)
[2024-11-11 11:07] LABS: Basophils # (Auto) 0.0 Thou/mm3 (0.0-0.2); Basophils % (Auto) 0 % (0-2.5); Eosinophils # (Auto) 0.0 Thou/mm3 (0.0-0.5); Eosinophils % (Auto) 0 % (0-10); Hematocrit 33.5 % (41.0-53.0); Hemoglobin 11.6 g/dL (13.5-16.0); Immature Granulocytes Auto 0.03 Thou/mm3 (0.00-0.00); Lymphocytes # (Auto) 1.2 Thou/mm3 (1.0-4.8); Lymphocytes % (Auto) 10 % (10-50); Mean Corpuscular HGB Conc 34.6 g/dl (31.0-37.0); Mean Corpuscular Hemoglobin 33.6 pg (25.0-35.0); Mean Corpuscular Volume 97 fL (80-100); Monocytes # (Auto) 0.5 Thou/mm3 (0.0-0.8); Monocytes % (Auto) 4 % (0-12); Neutrophils # (Auto) 10.1 Thou/mm3 (1.8-7.7); Neutrophils % (Auto) 86 % (37-80); Nucleated Red Blood Cell # 0.00 Thou/mm3 (0.00-0.00); Nucleated Red Blood Cell % 0 /100 WBC (0); Platelet Count 466 Thou/mm3 (140-440); RDW Standard Deviation 47.5 fL (35.1-43.9); Red Blood Count 3.45 Miln/mm3 (4.50-5.90); White Blood Count 11.8 Thou/mm3 (3.8-10.6)
[2024-11-11 11:19] LABS: INR 1.1 (0.9-1.3); Partial Thromboplastin Time 28.0 Seconds (22.0-36.0); Prothrombin Time 12.4 Seconds (9.0-12.2)
[2024-11-11 11:26] LABS: Alanine Aminotransferase 40 U/L (10-49); Albumin, Serum 4.1 gm/dL (3.5-5.0); Albumin/Globulin Ratio 1.8 (1.2-2.2); Alcohol, Blood Medical < 3.0 mg/dL (0-10.0); Alkaline Phosphatase 111 U/L (46-116); Anion Gap 11 (7-16); Aspartate Amino Transferase 45 U/L (0-34); BUN/Creatinine Ratio 39 Ratio (12-20); Bilirubin,Total 0.7 mg/dL (0.3-1.2); Blood Urea Nitrogen 27 mg/dL (9-23); Calcium 9.5 mg/dL (8.3-10.6); Calcium (Corrected) 9.5 mg/dL (8.5-10.1); Carbon Dioxide 37.0 mMol/L (20.0-31.0); Chloride 91 mMol/L (98-107); Creatinine (Component) 0.7 mg/dL (0.6-1.3); Globulin 2.3 gm/dL (2.3-3.5); Glucose 121 mg/dL (74-106); Lipase 20 U/L (12-53); Magnesium 1.6 mg/dL (1.6-2.6); Osmolality,Calculated 283 (275-295); Sodium 139 mMol/L (136-145); Total Protein 6.4 gm/dL (5.7-8.2); Troponin I < 0.020 ng/mL (0.0-0.045); eGFR > 60 See Note
[2024-11-11 11:29] LABS: Potassium 2.5 mMol/L (3.4-5.1)
--- NOTE | 2024-11-11 12:09 | XR_ITS ---
Examination: Abdominal series 3 views including AP chest TECHNIQUE: AP chest, AP supine AP upright abdomen 3 views Date and time: November 11, 2024 1301 hours INDICATIONS: Weakness altered mental status abdominal pain today. FINDINGS: Normal heart size. Lungs are clear. Nonobstructive bowel gas pattern. No free air Moderate stool throughout the colon IMPRESSION: Nonobstructive bowel gas pattern
[2024-11-11] MEDS: POTASSIUM CHL 10 mEq IVPB 10 MEQ/100 ML BAG 100 MEQ IV ×4 (12:18→16:36)
--- NOTE | 2024-11-11 14:01 | ESHP_ITS ---
<Statement entered by Jeffrey Witt MD - 11/11/24 15:39> 54-year-old male with past medical history of duodenal ulcer, pyloric stenosis, meth use disorder presenting to the ED with coffee-ground emesis ongoing for the past few days. On examination, patient mentation waxes and wanes but he does answer questions appropriately in Uzbek. Apparently he has been having abdominal pain along with hematemesis. Of note, patient has past hospitalization and has left AMA in the past few months. Patient had EGD which confirmed a duodenal ulcer in the past admission and he had scheduled ex lap with Billroth II procedure which was planned but unfortunately due to the patient leaving AMA was canceled. Patient will be admitted for upper GI bleed and will be started on IV Protonix with GI consultation planning endoscopy on 11/12. General surgery has also been consulted for the prior planned procedure which will tentatively be scheduled for 11/13. General surgery would like the patient to be on a PPN in anticipation of the surgery. I have personally seen and examined the patient. I agree with the resident's assessment and plan as documented below. Jeffrey Witt, DO PGY-2 Internal Medicine - GME Documentation for date of: 11/11/24 HPI History of Present Illness Chief complaint: Hematemesis History of present illness: Mr. Cannon is a 54 year old male with a history of large duodenal ulcer, gastric outlet obstruction, and meth abuse who presented to [facility] ED on 11/11 with hematemesis. Patient is admitted for management of upper GI bleed and gastric outlet obstruction. The patient has had multiple admissions to the hospital for this condition, but has left AMA the past three admissions (09/18/2024, 09/16/2024, and 10/19/2024). It was in these hospitalizations that the patient was diagnosed with a large duodenal ulcer and pyloric stenosis, that resulted in gastric outlet obstruction. In his most recent hospitalization, he was scheduled for exploratory laparotomy and Billroth II by Dr. Ziegler, general surgery, but he patient left AGAINST MEDICAL ADVICE after lengthy discussion with Dr Ziegler using a seismic interpreter about the risks and benefits of the operation. The patient came in today for 3 days of epigastric pain, described as a 6/10 aching fullness in his abdomen. with hematemesis. In the ED, the patient appeared to be very lethargic and was not answering all questions. The patient would doze off periodically. It is unclear how long the patient was having his hematemesis, but did describe it as dark red vomit. No sedating medications were given in the ED. Patient denies fevers, chills, chest pain, cough, shortness of breath, diarrhea, constipation, dysuria, and pyuria. ED Course: Vitals were significant for blood pressure of 155/98. Initial labs were significant for WBC 11.8, hemoglobin 11.6, platelet 466, potassium 2.5, chloride 91, BUN 27, AST 45, ALT 40. Blood alcohol levels drawn, non-elevated at <3.0 Urine drug screen ordered, pending. Patient given pantoprazole 80 mg IVP, pantoprazole 80 mg and 100 mL at 10 mL/h x 1, 2 L of NS, and 30 meq of potassium chloride, with 10 meq of potassium chloride pending. Consulted GI, Dr. Huerta, who agrees with admitting the patient. Past Surgical History: Patient denies. Current Medication(s): Patient denies. 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 Tobacco/Vape Use:? Patient stated that he smokes 1 pack per day since he was about 9 years old Other Drug Use:?Patient denies, however tested positive for methemphetamines in the past, most recent one was 10/19 Review of Systems Review of Systems Systems Reviewed: All systems reviewed, normal except as documented Exam Vital Signs Temp Pulse Resp BP Pulse Ox O2 Del Method 98.9 F 88 19 133/74 H 97 Room Air 11/11/24 13:10 11/11/24 13:41 11/11/24 13:10 11/11/24 13:10 11/11/24 13:10 11/11/24 13:10 Narrative Exam Physical Exam: General: Lethargic, no acute distress. Skin: Warm, dry, intact. Head: Normocephalic, atraumatic. Eye: Injected conjunctiva, PERRL. Cardiovascular: Regular rate and rhythm, no murmur, +S1/S2. Respiratory: Lungs are clear to auscultation, respirations unlabored, no crackles, no wheezing. Gastrointestinal: Soft, diffusely tender, non-distended. No guarding or rebound tenderness. Extremities: No edema, no cyanosis, no clubbing. Neuro: No focal deficits observed. Conversant, moving all extremities. No overt cerebellar signs/incoordination. Results: Labs 11/12/24 04:39 11/12/24 04:39 Labs: Short CBC 11/11/24 Range/Units 10:30 WBC 11.8 H (3.8-10.6) Thou/mm3 Hgb 11.6 L (13.5-16.0) g/dL Hct 33.5 L (41.0-53.0) % Plt Count 466 H D (140-440) Thou/mm3 BMP 11/11/24 10:30 Sodium 139 Potassium 2.5 L* Chloride 91 L Carbon Dioxide 37.0 H BUN 27 H Creatinine 0.7 Glucose 121 H Calcium 9.5 Cardiac Enzymes 11/11/24 Range/Units 10:30 Troponin I < 0.020 (0.0-0.045) ng/mL Liver Function 11/11/24 Range/Units 10:30 Total Bilirubin 0.7 (0.3-1.2) mg/dL AST 45 H (0-34) U/L ALT 40 (10-49) U/L Alkaline Phosphatase 111 (46-116) U/L Albumin 4.1 (3.5-5.0) gm/dL Quality Measures Quality Measures VTE prophylaxis Medications Home Medications and Allergies Home Medications ?Medication ?Instructions ?Recorded ?Confirmed ?Type No Known Home Medications 09/19/2405/06 History Allergies Allergy/AdvReac Type Severity Reaction Status Date / Time No Known Allergies Allergy Verified 11/11/24 10:37 Visit Medications Acetaminophen (Acetaminophen 325 Mg Tablet) 650 mg PO Q6H PRN PRN Reason: Fever >101.5 or pain 1-3 Stop: 12/11/24 13:50 Pantoprazole Sodium (Protonix/Ns 80mg Iv Premix) 80 mg in 100 mls @ 10 mls/hr IV X1 ONE Stop: 11/11/24 20:28 Last Admin: 11/11/24 10:57 Dose: 10 mls/hr Potassium Chloride (Kcl Ivpb) 10 meq in 100 mls @ 100 mls/hr IV Q1H CHASITY Stop: 11/11/24 15:47 Last Admin: 11/11/24 13:18 Dose: 100 mls/hr Magnesium Sulfate (Magnesium Sulfate Ivpb) 4 gm in 50 mls @ 12.5 mls/hr IV X1 ONE Stop: 11/11/24 17:54 Pantoprazole Sodium (Pantoprazole Inj 40 Mg Vial) 40 mg IVP Q12HR CHASITY Stop: 12/11/24 20:59 Discontinued Medications Sodium Chloride (Ns) 1,000 mls @ 999 mls/hr IV .Q1H1M ONE Stop: 11/11/24 11:27 Last Infusion: 11/11/24 11:58 Dose: Infused Sodium Chloride (Ns) 1,000 mls @ 999 mls/hr IV .Q1H1M ONE Stop: 11/11/24 12:48 Last Infusion: 11/11/24 13:20 Dose: Infused Pantoprazole Sodium (Pantoprazole Inj 40 Mg Vial) 80 mg IVP X1 ONE Stop: 11/11/24 10:28 Last Admin: 11/11/24 10:56 Dose: 80 mg Assessment & Plan Plan Mr. Cannon is a 54 year old male with a history of large duodenal ulcer, gastric outlet obstruction, and meth abuse who presented to [facility] ED on 11/11 with hematemesis. Patient is admitted for management of upper GI bleed and gastric outlet obstruction. #Upper GI bleed #Gastric outlet obstruction #Duodenal ulcer Patient came in on 11/11 with chief complaint of hematemesis and abdominal pain. Patient has been admitted for similar complaints in the past with 3 previous admissions, all of which he has left AGAINST MEDICAL ADVICE. In the previous visit, the patient was diagnosed with gastric outlet obstruction and a duodenal ulcer, which the patient did not receive proper treatment for as he left AGAINST MEDICAL ADVICE. In the most recent visit, the patient was scheduled for exploratory laparotomy with Billroth II procedure given the gastric outlet obstruction but patient left AGAINST MEDICAL ADVICE before this could be completed. - Protonix 40 mg IV twice daily - NG tube ordered with intermittent suction, pending - GI consulted by ED, appreciate recommendations - Endoscopy planned for 11/12, pending - General Surgery consulted, appreciate recommendations - Patient n.p.o. - Referral to contract graphic designer for PPN - Exploratory laparotomy with Billroth II plan for 11/13, pending - LR at 75 cc/h #Electrolyte abnormalities #Hypokalemia #Hypochloremia Patient was found to have potassium of 2.5 in ED. Chloride was also noted to be 91 in ED. This is most likely secondary to frequent vomiting by the patient. - Continue to monitor, replete electrolytes as indicated - Repeat BMP at 20:00 #Methamphetamine use disorder Patient has a long history of methamphetamine use. During the previous hospitalizations, the patient was noted to have positive methamphetamine on urine toxicology. Patient denies current use on admission. - Urine toxicology ordered by ED, pending - If urine toxicology is positive for methamphetamine, will order referral for 7th grade social studies teacher to advise for cessation #Tobacco use disorder Patient states that he smokes 1 pack/day since he was about 9 years old. Given that the patient is 54 currently, the patient has [id number]. - Nicotine patch ordered - Advised patient on tobacco use cessation - Referral to 7th grade social studies teacher for tobacco use cessation DVT Prophylaxis: SCDs GI Prophylaxis: Protonix Bowel: N/A Diet: NPO Jalloh: N/A Lines: Peripheral IV Antibiotics: N/A Code Status: FULL Reason for Hospitalization: Upper GI bleed Other Barriers to Discharge: Endoscopy (11/12?), exploratory laparotomy with Billroth II (11/13) Patient plan of care was discussed with the senior resident Dr. Witt and attending physician Dr. Taco Aranda, PGY1 Attending Provider Attestation/Addendum I, Mary España DO, attest that I was physically present for the jimenez portions of the service and evaluated the patient with the resident and I reviewed and discussed the case with the resident and agree with the resident's findings and plans of care as documented above Patient is a 54-year-old male with past medical history of large duodenal ulcer, gastric outlet obstruction and methamphetamine use who returned to ED due to hematemesis and abdominal pain for 3 days. Per nurse at bedside patient has not had any episodes of emesis, but EMS had stated that patient had significant coffee-ground emesis in his car when he was being picked up by ambulance. Patient has been seen multiple times here in the hospital and left AGAINST MEDICAL ADVICE on each occasion due to personal commitments. Patient states that he is willing to stay as he has orders of his personal issues. Patient is able to reiterate the reason why he has coffee-ground emesis and the findings on previous endoscopy. Discussed with patient that he will need surgery for resolution of his symptoms as he had been previously scheduled, which patient states that he is agreeable to stay and is understanding that he will be n.p.o. for several days. I discussed the case with the surgeon who recommends starting patient on PPN and will take patient to OR on if he is agreeable to surgery. I also discussed the case with GI who will do endoscopy in a.m. Potassium was noted to be 2.4 on presentation. Will replete electrolytes. On exam, patient appears to be very disheveled with very poor hygiene. 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 He has no abdominal distention or pain on palpation. An NG tube was placed prior to my evaluation during which coffee ground output was noted and aspirated. Lungs are clear to auscultation otherwise. Will admit patient to med/telemetry for further workup and medical management of gastric outlet obstruction, bleeding duodenal ulcer. Will trend H&H and transfuse as needed.
[2024-11-11] MEDS: Magnesium Sulfate 4 GM Ivpb 4 GM/50 ML BAG IV (14:38)
--- NOTE | 2024-11-11 15:09 | XR_ITS ---
Examination: AP chest single view Technique one AP portable semiupright chest single view Date and time: November 11, 2024 1426 hours INDICATIONS: Post orogastric tube placement FINDINGS: Orogastric tube in the stomach, tip below the level of the film Normal heart size No lobar pneumonia IMPRESSION: Orogastric tube in the stomach, tip below the level film
[2024-11-11 15:42] LABS: Collection Type, Urine Catheter
[2024-11-11 15:50] LABS: Bilirubin,Urine Negative (Negative); Blood,Urine Negative (Negative); Clarity,Urine Clear (Clear/Hazy); Color,Urine Lt-Yellow (Lt Yel-Yel); Culture Indicated,Urine Not Indicated; Glucose, Urine Negative (Negative); Ketones,Urine Negative (Negative); Leukocyte Esterase,Urine Negative (Negative); Nitrite,Urine Negative (Negative); PH,Urine 8.0 (5.0-7.0); Protein,Urine Trace (Neg - Trace); RBC,Urine 1 /hpf (0-3); Specific Gravity,Urine 1.026 (1.001-1.035); Squamous Epithelial Cell,Urine < 1 /hpf (0-5); Urobilinogen,Urine Negative mg/dL (0.0-1.0); WBC,Urine 1 /hpf (0-5)
[2024-11-11 15:58] LABS: Amphetamine/Methamp Scrn,U Positive (Negative); Barbiturate Screen,Urine Negative (Negative); Benzodiazepines Screen,Urine Negative (Negative); Benzoylecgonine Screen, Ur Negative (Negative); Fentanyl Screen,Urine Negative (Negative); Opiate Screen,Urine Negative (Negative); THC Screen,Urine Negative (Negative)
--- NOTE | 2024-11-11 16:03 | PC.DIETICIAN ---
Nutrition recommendations MD consult to start PPN was received. PPN: D5% AA4.25% at 50 ml/hr with 500 ml 20% lipid 3 times a week (Mon-WEd-Fri). If no electrolytes disturbances tomorrow, PPN will be advanced to goal of 100 ml/hr. 2400 ml volume, 102 g AA, 120 g dextrose, 1245 total calories, NPC 837. GIR=1.3 / LIR=0.7
[2024-11-11] MEDS: RINGERS LACTATED 1000 ML 1,000 ML 75 ML IV (16:34)
[2024-11-11] MEDS: NICOTINE PATCH 7 MG/24 HR PATCH.TD24 TOP (16:36)
[2024-11-11] MEDS: [UNRECOGNIZED DRUG - OTHER] IV (17:37)
[2024-11-11] MEDS: POTASSIUM PHOS IV (17:37)
[2024-11-11] MEDS: POT CHL ADDITIVE IV (17:37)
[2024-11-11] MEDS: MAGNESIUM SULF IV (17:37)
[2024-11-11] MEDS: hydrALAZINE INJ 20 MG/ML VIAL 10 MG IVP (18:29)
--- NOTE | 2024-11-11 20:08 | PD.IMCONS ---
HPI Data of Consult Requesting Physician: Mary España DO Primary Care Provider: Physician No Primary/Family Consult Narrative Reason for consult: hematemesis, pain abdomen History of present illness: 54 years old male presented the emergency room with a history of multiple episodes of coffee-ground emesis and severe abdominal pain Patient does have a history of large duodenal ulcer causing stenosis at the junction of duodenal bulb and descending duodenum he has signed out multiple times AMA that is AGAINST MEDICAL ADVICE He was scheduled for surgical intervention he signed off AGAINST MEDICAL ADVICE on the day of surgery on his previous admission Previous endoscopy had shown large duodenal bulb ulcer causing stenosis of the junction of duodenal bulb and descending duodenum cc:: cc: Mary España DO Review of Systems Review of Systems Systems Reviewed: All systems reviewed, normal except as documented Meds Home Medications and Allergies Home Medications ?Medication ?Instructions ?Recorded ?Confirmed ?Type No Known Home Medications 09/19/24 11/11/24 History Allergies Allergy/AdvReac Type Severity Reaction Status Date / Time No Known Allergies Allergy Verified 11/11/24 10:37 Exam Vital Signs Temp Pulse Resp BP Pulse Ox O2 Del Method 97.9 F 110 H 18 171/78 H 92 L Room Air 11/11/24 16:00 11/11/24 18:29 11/11/24 16:00 11/11/24 18:29 11/11/24 16:00 11/11/24 16:00 Constitutional Comments: Chronically ill-appearing Routine Respiratory Exam Comments: Normal to auscultation Routine Abdominal Exam Comments: Midepigastric tenderness Results Labs 11/11/24 10:30 11/11/24 10:30 Labs: Short CBC 11/11/24 Range/Units 10:30 WBC 11.8 H (3.8-10.6) Thou/mm3 Hgb 11.6 L (13.5-16.0) g/dL Hct 33.5 L (41.0-53.0) % Plt Count 466 H D (140-440) Thou/mm3 BMP 11/11/24 10:30 Sodium 139 Potassium 2.5 L* Chloride 91 L Carbon Dioxide 37.0 H BUN 27 H Creatinine 0.7 Glucose 121 H Calcium 9.5 Cardiac Enzymes 11/11/24 Range/Units 10:30 Troponin I < 0.020 (0.0-0.045) ng/mL Liver Function 11/11/24 Range/Units 10:30 Total Bilirubin 0.7 (0.3-1.2) mg/dL AST 45 H (0-34) U/L ALT 40 (10-49) U/L Alkaline Phosphatase 111 (46-116) U/L Albumin 4.1 (3.5-5.0) gm/dL Urine 11/11/24 Range/Units 15:18 Urine Color Lt-Yellow (Lt Yel-Yel) Urine Clarity Clear (Clear/Hazy) Urine pH 8.0 H (5.0-7.0) Ur Specific [place] 1.026 (1.001-1.035) Urine Protein Trace (Neg - Trace) Urine Glucose (UA) Negative (Negative) Assessment and Plan Additional Assessment & Plan Additional Plan: # Large duodenal ulcer causing narrowing at the junction of the descending duodenum # Hematemesis secondary to above Plan Recommend surgical consultation Recommend repeat fiberoptic esophagogastroduodenoscopy to have a fresh look at the ulcer to see if he can be managed conservatively Protonix drip at 8 mg/h Will follow the patient Hopefully he will not sign AGAINST MEDICAL ADVICE this time until definitive treatment options are executed thank you for the opportunity to participate in the care of this patient
--- NOTE | 2024-11-11 21:00 | PC.NURSE ---
Dr. Huerta in to see pt.
[2024-11-11 22:12] LABS: Anion Gap 9 (7-16); BUN/Creatinine Ratio 36 Ratio (12-20); Blood Urea Nitrogen 18 mg/dL (9-23); Calcium 8.3 mg/dL (8.3-10.6); Carbon Dioxide 25.2 mMol/L (20.0-31.0); Chloride 104 mMol/L (98-107); Creatinine (Component) 0.5 mg/dL (0.6-1.3); Estimated Creatinine Clearance 148.6 mL/min (>60); Glucose 90 mg/dL (74-106); Osmolality,Calculated 277 (275-295); Potassium 3.4 mMol/L (3.4-5.1); Sodium 138 mMol/L (136-145); eGFR > 60 See Note
[2024-11-12] VITALS (24 sets, daily range): BP systolic 91–114; BP diastolic 59–79; PULSE 80–107; RESP 12–96; TEMP 36.4–36.9; O2SAT 94–99; BMI 21.2
[2024-11-12 06:10] LABS: Basophils # (Auto) 0.0 Thou/mm3 (0.0-0.2); Basophils % (Auto) 0 % (0-2.5); Eosinophils # (Auto) 0.0 Thou/mm3 (0.0-0.5); Eosinophils % (Auto) 0 % (0-10); Hematocrit 26.0 % (41.0-53.0); Immature Granulocytes Auto 0.02 Thou/mm3 (0.00-0.00); Lymphocytes # (Auto) 1.3 Thou/mm3 (1.0-4.8); Lymphocytes % (Auto) 19 % (10-50); Mean Corpuscular HGB Conc 33.5 g/dl (31.0-37.0); Mean Corpuscular Hemoglobin 33.5 pg (25.0-35.0); Mean Corpuscular Volume 100 fL (80-100); Monocytes # (Auto) 0.3 Thou/mm3 (0.0-0.8); Monocytes % (Auto) 5 % (0-12); Neutrophils # (Auto) 5.0 Thou/mm3 (1.8-7.7); Neutrophils % (Auto) 75 % (37-80); Nucleated Red Blood Cell # 0.00 Thou/mm3 (0.00-0.00); Nucleated Red Blood Cell % 0 /100 WBC (0); Platelet Count 402 Thou/mm3 (140-440); RDW Standard Deviation 48.5 fL (35.1-43.9); Red Blood Count 2.60 Miln/mm3 (4.50-5.90); White Blood Count 6.7 Thou/mm3 (3.8-10.6)
[2024-11-12 06:22] LABS: Hemoglobin 8.7 g/dL (13.5-16.0)
[2024-11-12 06:28] LABS: INR 1.0 (0.9-1.3); Partial Thromboplastin Time 31.7 Seconds (22.0-36.0); Prothrombin Time 11.2 Seconds (9.0-12.2)
[2024-11-12 06:37] LABS: Alanine Aminotransferase 23 U/L (10-49); Albumin, Serum 3.1 gm/dL (3.5-5.0); Albumin/Globulin Ratio 1.6 (1.2-2.2); Alkaline Phosphatase 83 U/L (46-116); Anion Gap 10 (7-16); Aspartate Amino Transferase 24 U/L (0-34); BUN/Creatinine Ratio 32 Ratio (12-20); Bilirubin,Total 0.5 mg/dL (0.3-1.2); Blood Urea Nitrogen 16 mg/dL (9-23); Calcium 8.4 mg/dL (8.3-10.6); Calcium (Corrected) 9.1 mg/dL (8.5-10.1); Carbon Dioxide 24.0 mMol/L (20.0-31.0); Cardiac Risk Estimate 3.3 RATIO (4.0-6.7); Chloride 105 mMol/L (98-107); Cholesterol 78 mg/dL (132-200); Creatinine (Component) 0.5 mg/dL (0.6-1.3); Estimated Creatinine Clearance 148.6 mL/min (>60); Globulin 1.9 gm/dL (2.3-3.5); Glucose 86 mg/dL (74-106); HDL Cholesterol 24 mg/dL (40-60); LDL Cholesterol,Calculated 36 mg/dL (0-130); Magnesium 1.7 mg/dL (1.6-2.6); Osmolality,Calculated 277 (275-295); Phosphorous 1.9 mg/dL (2.4-5.1); Potassium 3.5 mMol/L (3.4-5.1); Sodium 139 mMol/L (136-145); Total Protein 5.0 gm/dL (5.7-8.2); Triglycerides 89 mg/dL (30-150); eGFR > 60 See Note
[2024-11-12] MEDS: PANTOPRAZOLE/NS 80MG IV PREMIX 80 MG/100 ML BAG 10 MG IV ×2 (08:45→16:20)
[2024-11-12 10:13] LABS: Hematocrit 26.3 % (41.0-53.0); Hemoglobin 8.9 g/dL (13.5-16.0)
[2024-11-12] MEDS: THIAMINE INJ 100 MG/ML VIAL 2 ML IVP (10:20)
--- NOTE | 2024-11-12 10:47 | PC.SS ---
Follow up note: Pt is IV Protonix drip. Endoscopy today. Pt will return home upon d.c.
[2024-11-12] MEDS: POT PHOS 15 mMol in NS 250 ML 15 MMOL/250 ML BAG 62.5 MMOL IV ×2 (11:19→15:12)
--- NOTE | 2024-11-12 11:34 | ESCONSULT_ITS ---
HPI Consult details Consult date: 11/11/24 Reason for consultation narrative: Gastric outlet obstruction from duodenal ulcer History of present illness: 54-year-old male with history of tobacco use disorder and methamphetamine use was admitted multiple times due to coffee-ground emesis. He was noted to have large duodenal ulcer causing gastric outlet obstruction. He was scheduled for exploratory laparotomy, antrectomy with gastrojejunostomy, however he is left the hospital AGAINST MEDICAL ADVICE. He is presented with similar complaints of coffee-ground emesis. Meds Home Medications and Allergies Home Medications ?Medication ?Instructions ?Recorded ?Confirmed ?Type No Known Home Medications 09/19/2405/06 History Allergies Allergy/AdvReac Type Severity Reaction Status Date / Time No Known Allergies Allergy Verified 11/11/24 10:37 Exam Vital Signs Temp Pulse Resp BP Pulse Ox O2 Del Method 98.0 F 107 H 19 93/65 95 Room Air 11/12/24 08:10 11/12/24 08:10 11/12/24 08:10 11/12/24 08:10 11/12/24 08:10 11/12/24 08:10 Constitutional Constitutional: no acute distress Routine Abdominal Exam Comments: Abdomen is soft and mildly distended Assessment & Plan Problem List (1) Gastric outlet obstruction: Status: Acute (2) Coffee ground emesis: Status: Acute (3) Duodenal ulcer: Status: Acute Plan NG tube decompression, n.p.o. with parenteral nutrition. Patient is agreeable to proceed with surgical intervention at this time. Will schedule patient for exploratory laparotomy, antrectomy with gastrojejunostomy. Risks include but not limited to infection, bleeding, injury to bowel, liver, common bile duct spleen, surround neurovascular structures, possible leak from the anastomosis site, possible need for biliary reconstruction, abdominal sepsis and or abdominal abscess, pneumonia and blood clot discussed with the patient via american sign language interpreter. Benefits and alternatives explained to him, all his questions answered, he agreed and consented to proceed with the operation.
--- NOTE | 2024-11-12 11:49 | PD.RESPRO ---
Documentation for date of: 11/12/24 Subjective Subjective Interval history: Patient seen and assessed in hospital bed reporting improvement in presenting symptoms and denies having any severe abdominal tenderness. Patient has NG tube in place with Protonix drip for upper GI bleed likely secondary to duodenal ulcer. EGD scheduled with gastroenterology on 11/12 and tentatively scheduled for Billroth II procedure with general surgery on 11/13. Patient continues to be on PPN for nutrition as surgical procedure will result in delaying enteral nutrition. Exam Vital Signs Temp Pulse Resp BP Pulse Ox O2 Del Method 98.0 F 107 H 19 93/65 95 Room Air 11/12/24 08:10 11/12/24 08:10 11/12/24 08:10 11/12/24 08:10 11/12/24 08:10 11/12/24 08:10 Narrative Exam Physical Exam: GENERAL: Awake, answering questions appropriately, appears stated age HEENT: NC/AT. Moist mucosa. PERRLA/EOMI. NGT in place - suctioning dark fluid CARDIO: Heart RRR, no obvious murmurs, no JVD. PULM: No coughing or visible SOB. Lungs CTA B/L. GI: Abdomen soft, mildly tender to palpation in epigastric area, otherwise nontender/nondistended without guarding or rebound tenderness SKIN/MSK/EXT: No wounds/discoloration/rashes/edema/amputations. +Pedal pulses present B/L. NEURO: Oriented x4, Moves extremities x4, no focal neurological deficits Objective Labs 11/12/24 09:30 11/12/24 04:39 Labs: Laboratory Results - last 24 hr 11/11/24 11/11/24 11/12/24 15:18 21:34 04:39 WBC 6.7 D RBC 2.60 L Hgb 8.7 L D Hct 26.0 L MCV 100 MCH 33.5 MCHC 33.5 RDW Std Deviation 48.5 H Plt Count 402 D Neut % (Auto) 75 Lymph % (Auto) 19 [place] % (Auto) 5 Eos % (Auto) 0 Baso % (Auto) 0 Neut # (Auto) 5.0 Lymph # (Auto) 1.3 [place] # (Auto) 0.3 Eos # (Auto) 0.0 Baso # (Auto) 0.0 Immature Gran # (Auto) 0.02 H Absolute Nucleated RBC 0.00 Immature Gran % 0 Nucleated RBC % 0 PT 11.2 INR 1.0 APTT 31.7 Sodium 138 139 Potassium 3.4 D 3.5 Chloride 104 105 Carbon Dioxide 25.2 24.0 Anion Gap 9 10 BUN 18 16 Creatinine 0.5 L 0.5 L Estim Creat Clear Calc 148.6 148.6 eGFR > 60 > 60 BUN/Creatinine Ratio 36 H 32 H Glucose 90 86 Calculated Osmolality 277 277 Calcium 8.3 8.4 Corrected Calcium 9.1 Phosphorus 1.9 L Magnesium 1.7 Total Bilirubin 0.5 AST 24 ALT 23 Alkaline Phosphatase 83 D Total Protein 5.0 L Albumin 3.1 L D Globulin 1.9 L Albumin/Globulin Ratio 1.6 Triglycerides 89 Cholesterol 78 L LDL Cholesterol, Calc 36 HDL Cholesterol 24 L Cholesterol/HDL Ratio 3.3 L Ur Collection Type Catheter Urine Color Lt-Yellow Urine Clarity Clear Urine pH 8.0 H Ur Specific [place] 1.026 Urine Protein Trace Urine Glucose (UA) Negative Urine Ketones Negative Urine Blood Negative Urine Nitrite Negative Urine Bilirubin Negative Urine Urobilinogen (Auto) Negative Ur Leukocyte Esterase Negative Urine RBC 1 Urine WBC 1 Ur Squamous Epith Cells < 1 Urine Bacteria None Ur Culture Indicated? Not Indicated Urine Opiates Screen Negative Urine Fentanyl Screen Negative Ur Barbiturates Screen Negative U Amphetamin/Meth Scrn Positive A U Benzodiazepines Scrn Negative U Cocaine Metab Screen Negative U Marijuana (THC) Screen Negative Blood Type Antibody Screen Crossmatch Blood Bank Wristband ID 11/12/24 09:30 WBC RBC Hgb 8.9 L Hct 26.3 L MCV MCH MCHC RDW Std Deviation Plt Count Neut % (Auto) Lymph % (Auto) [place] % (Auto) Eos % (Auto) Baso % (Auto) Neut # (Auto) Lymph # (Auto) [place] # (Auto) Eos # (Auto) Baso # (Auto) Immature Gran # (Auto) Absolute Nucleated RBC Immature Gran % Nucleated RBC % PT INR APTT Sodium Potassium Chloride Carbon Dioxide Anion Gap BUN Creatinine Estim Creat Clear Calc eGFR BUN/Creatinine Ratio Glucose Calculated Osmolality Calcium Corrected Calcium Phosphorus Magnesium Total Bilirubin AST ALT Alkaline Phosphatase Total Protein Albumin Globulin Albumin/Globulin Ratio Triglycerides Cholesterol LDL Cholesterol, Calc HDL Cholesterol Cholesterol/HDL Ratio Ur Collection Type Urine Color Urine Clarity Urine pH Ur Specific [place] Urine Protein Urine Glucose (UA) Urine Ketones Urine Blood Urine Nitrite Urine Bilirubin Urine Urobilinogen (Auto) Ur Leukocyte Esterase Urine RBC Urine WBC Ur Squamous Epith Cells Urine Bacteria Ur Culture Indicated? Urine Opiates Screen Urine Fentanyl Screen Ur Barbiturates Screen U Amphetamin/Meth Scrn U Benzodiazepines Scrn U Cocaine Metab Screen U Marijuana (THC) Screen Blood Type O Positive Antibody Screen NEGATIVE Crossmatch See Detail Blood Bank Wristband ID Yes Quality Measures Quality Measures VTE prophylaxis Assessment & Plan Assessment Current Active Medications: Generic Name Dose Route Start Last Admin Trade Name Freq PRN Reason Stop Dose Admin Acetaminophen 650 mg 11/11/24 13:51 Acetaminophen 325 Mg Tablet PO 12/11/24 13:50 Q6H PRN Fever >101.5 or pain 1-3 Potassium Chloride 120 meq/ 2,079 mls @ 50 mls/hr 11/11/24 18:00 11/11/24 17:37 Potassium Phosphate 15 mmol/ IV 11/12/24 17:59 50 mls/hr Magnesium Sulfate 2 gm/ [id number] CHASITY Administration Multivitamins/Minerals 10 ml/ Amino Acids Fat Emulsion Intravenous 500 mls @ 32 mls/hr 11/12/24 18:00 Intralipid 20% Iv IV 12/12/24 17:59 [email or web address] CHASITY Pantoprazole Sodium 80 mg in 100 mls @ 10 mls/hr 11/12/24 08:17 11/12/24 08:45 Protonix/Ns 80mg Iv Premix IV 11/15/24 06:16 10 mls/hr Q10H CHASITY Administration Potassium Phosphate 15 mmol in 250 mls @ 62.5 mls/hr 11/12/24 10:30 11/12/24 11:19 Pot Phos 15 Mmol In Ns 250 Ml IV 11/12/24 18:29 62.5 mls/hr Q4H CHASITY Administration Insulin Human Regular 0 unit 11/12/24 00:00 11/12/24 11:26 Insulin Hum Regular 1 Unit/0.01 Ml (Per Unit) SC 12/11/24 16:49 Not Given Q6HR CHASITY Protocol Thiamine HCl 100 mg 11/12/24 09:45 11/12/24 10:20 Thiamine Inj 100 Mg/Ml Vial 2 Ml IVP 12/12/24 09:44 100 mg QDAY CHASITY Administration Plan 54-year-old male with past medical history of duodenal ulcer, gastric outlet obstruction, meth use disorder presenting to the ED with coffee-ground emesis ongoing for the past few days will be admitted for upper GI bleed and general surgery has also been consulted for the Billroth II procedure for gastric outlet secondary to large duodenal ulcer. #Gastric Outlet Obstruction 2/2 #Large Duodenal Ulcer Patient has mild abdominal tenderness, improved from presentation General surgery on board - tentatively planned Billroth II procedure on 11/13 Plan: NPO Continue PPN as recommended by Gen Surg #Upper GI Bleed 2/2 #Acute blood loss anemia, stable #Duodenal ulcer Per HPI patient is having coffee-ground emesis Had EGD recently (10/20) which showed many esophageal ulcers and one large duodenal ulcer causing obstruction GI consulted, appreciate recommendations Plan: NGT low-int suction Protonix gtt EGD scheduled for 11/12 NPO - on PPN as noted above #Electrolyte abnormalities As noted on morning labs Plan: On PPN Replete lytes as needed Thiamine supplementation Follow-up with morning labs Analytical Data Scientist consult in, appreciate recommendations #Polysubstance use disorder #Meth-use disorder As noted on Utox, patient subjective Plan: Counselled on complete cessation consulting services manager consult #Tobacco dependence History of smoking >20 pack year Plan: Nicotine patch prn Recommend outpatient CT chest for lung cancer screening Health Maintenance: Lines: NG tube, PIV Diet: PPN Bowel: Not needed GI prophylaxis: Protonix drip DVT prophylaxis: SCD Dispo: EGD 11/12 and Billroth II procedure on 11/13 Code: Full Patient seen and assessed with attending Dr. Taco Witt DO PGY-2 Internal Medicine - GME Attending Provider Attestation/Addendum Mary Rosen DO, attest that I was physically present for the jimenez portions of the service and evaluated the patient with the resident and I reviewed and discussed the case with the resident and agree with the resident's findings and plans of care as documented above Patient seen and evaluated this AM. NG tube remains in place. Coffee ground emesis noted from NG output. He reports some epigastric pain, but improved. No abdominal distension noted. Pending EGD today. Continue with PPN. Patient to remain strict NPO. Surgery scheduled for tomorrow. Patient is agreeable to plan.
--- NOTE | 2024-11-12 12:08 | PC.SS ---
SS met with patient regarding his d/c plan. Pt is alert/oriented. Pt was admitted for Abdominal Pain. Pt confirmed demographic and contact information is correct on facesheet. Pt resides with his friends. Pt ambulates independently without assistance or DME. Pt is ok with all ADLs. Pt states he is employed and is constantly working. Patient?s pharmacy of choice is [facility] on [address]. Pt named his friend, Sujit Tenzin medical decision maker if he is unable. Patient?s choice is to return home upon d/c. Pt states not diabetic and is not on dialysis. Pt states he does not have PCP and is agreeable to follow up with the physician residents at [facility]. Patient's tox screen was positive for meth use. D/C plan: Return home Next of Kin: Sujit Dave, friend, phone# [phone] PCP: Will follow up at [facility] Address: Correct on facesheet
--- NOTE | 2024-11-12 12:10 | PC.SS ---
Pt is self pay. SS has spoken to financial advisor, Kita who is aware and will come see pt at bedside. Pt is aware.
[2024-11-12] MEDS: MULTIVITAMIN INJ 10 ML in AMINO ACID 4.25%/D5W E 2,000 ML 100 ML IV (17:18)
[2024-11-12] MEDS: FAT EMULSIONS 20% IV 500 ML 32 ML IV (17:18)
--- NOTE | 2024-11-12 18:51 | PC.NURSE ---
Pt taken for endoscopy
--- NOTE | 2024-11-12 19:43 | SUR.PHASEI ---
1941 Patient arrived to recovery resting comfortably in [facility], on oxygen 4L via nasal cannula, breathing unlabored, vital signs stable, denies pain and nausea, NG tube in place to left nares; clamped, report received from Pamela CARLISLE/Joanne CARLISLE
--- NOTE | 2024-11-12 20:20 | SUR.PHASEI ---
2015 Report given to Anuja CARLISLE, patient meets discharge criteria from recovery, awake and talking with staff, on oxygen 4L via nasal cannula, breathing unlabored, vital signs stable, denies pain and nausea 2019 Patient transported via gurney to room 376 without incident, patient ambulated with stand by from this administrative underwriter from gurney to bed, patient resting comfortably in bed with call light in reach and Anuja RN at patient bedside when this administrative underwriter left patients room
--- NOTE | 2024-11-12 20:25 | PC.NURSE ---
Report received from legal recovery specialist, pt arrived to room, transferred self to bed. Reconnected pt to IV medications PPN/LIPIDS/PROTONIX/KPHOS and connected NGT to LIS. Pt resting no complaints vocalized at this time.
[2024-11-13] VITALS (13 sets, daily range): BP systolic 92–140; BP diastolic 54–74; PULSE 69–98; RESP 16–98; TEMP 36.4–37.2; O2SAT 97–100
[2024-11-13] MEDS: PANTOPRAZOLE/NS 80MG IV PREMIX 80 MG/100 ML BAG 10 MG IV ×3 (05:13→23:15)
[2024-11-13 05:39] LABS: Basophils # (Auto) 0.0 Thou/mm3 (0.0-0.2); Basophils % (Auto) 0 % (0-2.5); Eosinophils # (Auto) 0.0 Thou/mm3 (0.0-0.5); Eosinophils % (Auto) 0 % (0-10); Hematocrit 25.3 % (41.0-53.0); Immature Granulocytes Auto 0.01 Thou/mm3 (0.00-0.00); Lymphocytes # (Auto) 0.9 Thou/mm3 (1.0-4.8); Lymphocytes % (Auto) 13 % (10-50); Mean Corpuscular HGB Conc 34.0 g/dl (31.0-37.0); Mean Corpuscular Hemoglobin 33.1 pg (25.0-35.0); Mean Corpuscular Volume 97 fL (80-100); Monocytes # (Auto) 0.4 Thou/mm3 (0.0-0.8); Monocytes % (Auto) 6 % (0-12); Neutrophils # (Auto) 5.5 Thou/mm3 (1.8-7.7); Neutrophils % (Auto) 80 % (37-80); Nucleated Red Blood Cell # 0.00 Thou/mm3 (0.00-0.00); Nucleated Red Blood Cell % 0 /100 WBC (0); Platelet Count 302 Thou/mm3 (140-440); RDW Standard Deviation 46.7 fL (35.1-43.9); Red Blood Count 2.60 Miln/mm3 (4.50-5.90); White Blood Count 6.8 Thou/mm3 (3.8-10.6)
[2024-11-13 05:40] LABS: Hemoglobin 8.6 g/dL (13.5-16.0)
[2024-11-13 05:58] LABS: Alanine Aminotransferase 17 U/L (10-49); Albumin, Serum 3.2 gm/dL (3.5-5.0); Albumin/Globulin Ratio 1.7 (1.2-2.2); Alkaline Phosphatase 77 U/L (46-116); Anion Gap 11 (7-16); Aspartate Amino Transferase 19 U/L (0-34); BUN/Creatinine Ratio 26 Ratio (12-20); Bilirubin,Total 0.3 mg/dL (0.3-1.2); Blood Urea Nitrogen 13 mg/dL (9-23); Calcium 8.3 mg/dL (8.3-10.6); Calcium (Corrected) 8.9 mg/dL (8.5-10.1); Carbon Dioxide 22.7 mMol/L (20.0-31.0); Chloride 100 mMol/L (98-107); Creatinine (Component) 0.5 mg/dL (0.6-1.3); Estimated Creatinine Clearance 148.6 mL/min (>60); Globulin 1.9 gm/dL (2.3-3.5); Glucose 96 mg/dL (74-106); Magnesium 1.5 mg/dL (1.6-2.6); Osmolality,Calculated 268 (275-295); Phosphorous 2.5 mg/dL (2.4-5.1); Potassium 3.6 mMol/L (3.4-5.1); Sodium 134 mMol/L (136-145); Total Protein 5.1 gm/dL (5.7-8.2); eGFR > 60 See Note
--- NOTE | 2024-11-13 06:00 | PC.NURSE ---
A [facility] down time occured 11/13/24 [id number]
[2024-11-13] MEDS: THIAMINE INJ 100 MG/ML VIAL 2 ML IVP (07:55)
[2024-11-13] MEDS: Magnesium Sulfate 4 GM Ivpb 4 GM/50 ML BAG IV (08:39)
--- NOTE | 2024-11-13 09:35 | ESPR_ITS ---
<Statement entered by Diaz Barboza MD - 11/13/24 15:56> No acute overnight events. Patient underwent EGD yesterday and found to have few esophageal ulcers in the lower third of the esophagus, presence of bile in the body of the stomach, pylorus and pyloric channel swollen and there is a duodenal bulb ulcer which is healing and no visible blood vessels with narrowing of the junction of duodenal bulb and descending duodenum. Dr. Huerta recommended patient should be continued on Protonix drip for 48 hours and repeat endoscopy for duodenal dilatation. If the procedure is unsuccessful, Dr. Ziegler will do Billroth II procedure including distal gastrectomy and gastro jejunostomy. So we will keep patient on n.p.o. for now. Will continue NG tube. Patient might undergo endoscopy tomorrow and based on the results, we will know whether patient needs surgery or not. Patient was explained about the plan and he understood it. Labs done this morning showed stable hemoglobin as of now. Magnesium is 1.5 and potassium is 3.6 which were repleted. I have personally seen and examined the patient, agree with the residents assessment and plan Patient plan of care was discussed with the attending physician, Dr. Taco Barboza, PGY2 Documentation for date of: 11/13/24 Subjective Subjective Interval history: Overnight events: No acute events overnight. Patient was seen and examined at bedside. AM vitals and labs reviewed. Did complain of 8-9 epigastric pain. NG tube in place, PPN running. EGD performed yesterday showed esophageal ulcers and duodenal bulb ulcer. GI discussed case with general surgery, stated that duodenal ulcer appears slightly better and stricture could be manage with endoscopy. Will wait 48 hours for inflammation to subside for repeat EDG and attempt for endoscopic dilation. Will proceed with exploratory laparotomy with anterectomy and gastrojejunostomy if this fails. Review of systems otherwise negative except for what is mentioned above. Exam Vital Signs Temp Pulse Resp BP Pulse Ox O2 Del Method O2 Flow Rate 98.2 F 87 18 114/54 L 97 Room Air 4 11/13/24 08:55 11/13/24 08:55 11/13/24 08:55 11/13/24 08:55 11/13/24 08:55 11/13/24 08:55 11/12/24 20:13 Narrative Exam Physical Exam: General: Alert, no acute distress. Skin: Warm, dry, intact. Head: Normocephalic, atraumatic. Eye: Normal conjunctiva, PERRL. Cardiovascular: Regular rate and rhythm, no murmur, +S1/S2. Respiratory: Lungs are clear to auscultation, respirations unlabored, no crackles, no wheezing. Gastrointestinal: Soft, tender, non-distended. No guarding or rebound tenderness. Extremities: No edema, no cyanosis, no clubbing. 2+ radial pulse bilaterally, 2+ pedal pulse bilaterally. Neuro: No focal deficits observed. Conversant, moving all extremities. No overt cerebellar signs/incoordination. Psychiatric: Cooperative, appropriate affect. Objective Labs 11/14/24 05:28 11/14/24 05:28 Labs: Laboratory Results - last 24 hr 11/12/24 11/13/24 09:30 04:43 WBC 6.8 RBC 2.60 L Hgb 8.9 L 8.6 L Hct 26.3 L 25.3 L MCV 97 MCH 33.1 MCHC 34.0 RDW Std Deviation 46.7 H Plt Count 302 D Neut % (Auto) 80 Lymph % (Auto) 13 [place] % (Auto) 6 Eos % (Auto) 0 Baso % (Auto) 0 Neut # (Auto) 5.5 Lymph # (Auto) 0.9 L [place] # (Auto) 0.4 Eos # (Auto) 0.0 Baso # (Auto) 0.0 Immature Gran # (Auto) 0.01 H Absolute Nucleated RBC 0.00 Immature Gran % 0 Nucleated RBC % 0 Sodium 134 L Potassium 3.6 Chloride 100 Carbon Dioxide 22.7 Anion Gap 11 BUN 13 Creatinine 0.5 L Estim Creat Clear Calc 148.6 eGFR > 60 BUN/Creatinine Ratio 26 H Glucose 96 Calculated Osmolality 268 L Calcium 8.3 Corrected Calcium 8.9 Phosphorus 2.5 Magnesium 1.5 L Total Bilirubin 0.3 AST 19 ALT 17 Alkaline Phosphatase 77 Total Protein 5.1 L Albumin 3.2 L Globulin 1.9 L Albumin/Globulin Ratio 1.7 Blood Type O Positive Antibody Screen NEGATIVE Crossmatch See Detail Blood Bank Wristband ID Yes Quality Measures Quality Measures VTE prophylaxis Assessment & Plan Assessment Current Active Medications: Generic Name Dose Route Start Last Admin Trade Name Freq PRN Reason Stop Dose Admin Acetaminophen 650 mg 11/11/24 13:51 Acetaminophen 325 Mg Tablet PO 12/11/24 13:50 Q6H PRN Fever >101.5 or pain 1-3 Fat Emulsion Intravenous 500 mls @ 32 mls/hr 11/12/24 18:00 11/12/24 17:18 Intralipid 20% Iv IV 12/12/24 17:59 32 mls/hr [email or web address] CHASITY Administration Pantoprazole Sodium 80 mg in 100 mls @ 10 mls/hr 11/12/24 08:17 11/13/24 05:13 Protonix/Ns 80mg Iv Premix IV 11/15/24 06:16 10 mls/hr Q10H CHASITY Administration Multivitamins/Minerals 10 ml/ 2,010 mls @ 100 mls/hr 11/12/24 18:00 11/12/24 17:18 Amino Acids/Electrolytes/ IV 11/13/24 14:05 100 mls/hr Dextrose .Q20H6M CHASITY Administration Magnesium Sulfate 4 gm in 50 mls @ 12.5 mls/hr 11/13/24 08:20 11/13/24 08:39 Magnesium Sulfate Ivpb IV 11/13/24 12:19 12.5 mls/hr X1 ONE Administration Thiamine HCl 100 mg 11/12/24 09:45 11/13/24 07:55 Thiamine Inj 100 Mg/Ml Vial 2 Ml IVP 12/12/24 09:44 100 mg QDAY CHASITY Administration Plan Mr. Cannon is a 54 year old male with a history of large duodenal ulcer, gastric outlet obstruction, and meth abuse who presented to [facility] ED on 11/11 with hematemesis. Patient is admitted for management of upper GI bleed and gastric outlet obstruction. #Upper GI bleed #Gastric outlet obstruction #Duodenal ulcer Patient came in on 11/11 with chief complaint of hematemesis and abdominal pain. Patient has been admitted for similar complaints in the past with 3 previous admissions, all of which he has left AGAINST MEDICAL ADVICE. In the previous visit, the patient was diagnosed with gastric outlet obstruction and a duodenal ulcer, which the patient did not receive proper treatment for as he left AGAINST MEDICAL ADVICE. In the most recent visit, the patient was scheduled for exploratory laparotomy with Billroth II procedure given the gastric outlet obstruction but patient left AGAINST MEDICAL ADVICE before this could be completed. - Protonix 40 mg IV twice daily - NG tube ordered with intermittent suction, pending - GI consulted by ED, appreciate recommendations - Endoscopy performed 11/12, showed multiple esophageal ulcers and a large duodenal ulcer, plans for repeat EGD on 11/14 with possible endoscopic dilation - General Surgery consulted, appreciate recommendations - Patient n.p.o. - Referral to scallop cutter machine for PPN - Exploratory laparotomy with anterectomy and gastrojejunostomy if endoscopic dilation fails - LR at 75 cc/h #Electrolyte abnormalities #Hypokalemia #Hypochloremia Patient was found to have potassium of 2.5 in ED. Chloride was also noted to be 91 in ED. This is most likely secondary to frequent vomiting by the patient. - Continue to monitor, replete electrolytes as indicated #Methamphetamine use disorder Patient has a long history of methamphetamine use. During the previous hospitalizations, the patient was noted to have positive methamphetamine on urine toxicology. Patient denies current use on admission. - Urine toxicology ordered by ED, pending - If urine toxicology is positive for methamphetamine, will order referral for social worker masters to advise for cessation #Tobacco use disorder Patient states that he smokes 1 pack/day since he was about 9 years old. Given that the patient is 54 currently, the patient has [id number]. - Nicotine patch ordered - Advised patient on tobacco use cessation - Referral to social worker masters for tobacco use cessation DVT Prophylaxis: SCDs GI Prophylaxis: Protonix Bowel: N/A Diet: NPO Jalloh: N/A Lines: Peripheral IV Antibiotics: N/A Code Status: FULL Reason for Hospitalization: Upper GI bleed Other Barriers to Discharge: Endoscopy, possible surgery Patient plan of care was discussed with the senior resident Dr. Barboza and attending physician Dr. Taco Aranda, PGY1 Attending Provider Attestation/Addendum Silas, Mary España, , attest that I was physically present for the jimenez portions of the service and evaluated the patient with the resident and I reviewed and discussed the case with the resident and agree with the resident's findings and plans of care as documented above Patient is seen and eval this a.m. He states that he is waiting for surgery. Discussed the findings of endoscopy with the patient. EGD showed evidence of esophageal ulcers, presence of bile in the body of the stomach, pylorus and pyloric channel that appeared to be swollen. Duodenal bulb ulcer also appeared to be improved with no active bleeding noted. There was narrowing of the junction of the duodenal bulb and descending duodenum as well. Surgeon was contacted by GI and recommended for repeat endoscopy in 48 hours so that stricture could be managed endoscopically. Surgery today was counseled for this reason. Explained to patient of planning which he is agreeable to. However, patient states that he does not like this bed and wants to go home soon. He otherwise has no acute complaints. He has mild tenderness to palpation in his epigastric region.
--- NOTE | 2024-11-13 10:23 | PD.SURPROG ---
Documentation for date of: 11/13/24 Subjective Subjective Narrative: Patient is seen and examined. He underwent EGD last night Exam Vital Signs Temp Pulse Resp BP Pulse Ox O2 Del Method O2 Flow Rate 98.2 F 87 18 114/54 L 97 Room Air 4 11/13/24 08:55 11/13/24 08:55 11/13/24 08:55 11/13/24 08:55 11/13/24 08:55 11/13/24 08:55 11/12/24 20:13 Constitutional Constitutional: no acute distress Routine Abdominal Exam Comments: Abdomen is soft and minimally distended Assessment & Plan Diagnosis (1) UGIB (upper gastrointestinal bleed): Status: Acute (2) Duodenal ulcer: Status: Acute (3) Gastric outlet obstruction: Status: Acute Plan Patient was scheduled to undergo exploratory laparotomy, with antrectomy and gastrojejunostomy today. However, Dr Huerta called me last night after EGD and stated that the ulcer appeared slightly better and the stricture could be managed endoscopically. He stated that he would like to wait 48 hours for the inflammation to subside prior to him attempting for endoscopic dilatation. He will attempt endoscopic dilatation in hopes of avoiding operation, if unsuccessful will proceed with the proposed operation.
[2024-11-13] MEDS: [UNRECOGNIZED DRUG - OTHER] IV (14:03)
[2024-11-13] MEDS: AMINO ACID IV (14:03)
[2024-11-13] MEDS: POTASSIUM PHOS IV (14:03)
[2024-11-13] MEDS: MULTIVITAMIN IV (14:03)
--- NOTE | 2024-11-13 17:10 | ESPR_ITS ---
Documentation for date of: 11/13/24 Subjective Subjective Interval history: Hemoglobin hematocrit 8.6 and 25.3 Continue NGT suction for today Repeat endoscopy tomorrow to balloon dilate the stricture at the junction of duodenal bulb and descending duodenum To avoid surgical intervention at this point If that does not work for gastric outlet obstruction patient will have to go to surgery I have discussed this with Dr Ziegler Exam Vital Signs Temp Pulse Resp BP Pulse Ox O2 Del Method O2 Flow Rate 98.2 F 75 16 122/54 L 98 Room Air 4 11/13/24 16:00 11/13/24 16:00 11/13/24 16:00 11/13/24 16:00 11/13/24 16:00 11/13/24 16:00 11/12/24 20:13 Objective Labs 11/13/24 04:43 11/13/24 04:43 Labs: Laboratory Results - last 24 hr 11/13/24 04:43 WBC 6.8 RBC 2.60 L Hgb 8.6 L Hct 25.3 L MCV 97 MCH 33.1 MCHC 34.0 RDW Std Deviation 46.7 H Plt Count 302 D Neut % (Auto) 80 Lymph % (Auto) 13 [place] % (Auto) 6 Eos % (Auto) 0 Baso % (Auto) 0 Neut # (Auto) 5.5 Lymph # (Auto) 0.9 L [place] # (Auto) 0.4 Eos # (Auto) 0.0 Baso # (Auto) 0.0 Immature Gran # (Auto) 0.01 H Absolute Nucleated RBC 0.00 Immature Gran % 0 Nucleated RBC % 0 Sodium 134 L Potassium 3.6 Chloride 100 Carbon Dioxide 22.7 Anion Gap 11 BUN 13 Creatinine 0.5 L Estim Creat Clear Calc 148.6 eGFR > 60 BUN/Creatinine Ratio 26 H Glucose 96 Calculated Osmolality 268 L Calcium 8.3 Corrected Calcium 8.9 Phosphorus 2.5 Magnesium 1.5 L Total Bilirubin 0.3 AST 19 ALT 17 Alkaline Phosphatase 77 Total Protein 5.1 L Albumin 3.2 L Globulin 1.9 L Albumin/Globulin Ratio 1.7 Impressions Impression: Large duodenal ulcer 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 Assessment & Plan A&P Narrative # Large duodenal ulcer causing narrowing at the junction of the descending duodenum # Hematemesis secondary to above Plan Recommend surgical consultation Recommend repeat fiberoptic esophagogastroduodenoscopy to have a fresh look at the ulcer to see if he can be managed conservatively Protonix drip at 8 mg/h Will follow the patient Hopefully he will not sign AGAINST MEDICAL ADVICE this time until definitive treatment options are executed thank you for the opportunity to participate in the care of this patient Time Spent With Patient Time: Total time spent is greater than 50% in coordination of care (as documented) at patient's floor/unit and/or counseling patient:
--- NOTE | 2024-11-13 19:05 | PC.NURSE ---
Report received, plan for pt to have repeat EGD cont with PPN.
[2024-11-14] VITALS: BP 103/66; PULSE 76; RESP 17; TEMP 36.1; O2SAT 98
[2024-11-14 03:54] VITALS: PULSE 79; RESP 20; RESP 98
[2024-11-14 04:00] VITALS: BP 93/61; PULSE 72; RESP 18; TEMP 36.5; O2SAT 96
[2024-11-14 04:38] VITALS: PULSE 68
[2024-11-14 06:35] LABS: Basophils # (Auto) 0.0 Thou/mm3 (0.0-0.2); Basophils % (Auto) 0 % (0-2.5); Eosinophils # (Auto) 0.1 Thou/mm3 (0.0-0.5); Eosinophils % (Auto) 2 % (0-10); Hematocrit 25.8 % (41.0-53.0); Hemoglobin 8.8 g/dL (13.5-16.0); Immature Granulocytes Auto 0.00 Thou/mm3 (0.00-0.00); Lymphocytes # (Auto) 0.9 Thou/mm3 (1.0-4.8); Lymphocytes % (Auto) 21 % (10-50); Mean Corpuscular HGB Conc 34.1 g/dl (31.0-37.0); Mean Corpuscular Hemoglobin 33.3 pg (25.0-35.0); Mean Corpuscular Volume 98 fL (80-100); Monocytes # (Auto) 0.3 Thou/mm3 (0.0-0.8); Monocytes % (Auto) 7 % (0-12); Neutrophils # (Auto) 3.1 Thou/mm3 (1.8-7.7); Neutrophils % (Auto) 71 % (37-80); Nucleated Red Blood Cell # 0.00 Thou/mm3 (0.00-0.00); Nucleated Red Blood Cell % 0 /100 WBC (0); Platelet Count 339 Thou/mm3 (140-440); RDW Standard Deviation 47.0 fL (35.1-43.9); Red Blood Count 2.64 Miln/mm3 (4.50-5.90); White Blood Count 4.4 Thou/mm3 (3.8-10.6)
--- NOTE | 2024-11-14 06:43 | PC.NURSE ---
Into room to obtain consent for EGD today with hse manager [place], pt agreed to EGD but stated would like to know when because he is already tired of being here wants to go home. Pt agrees to stay at this time will wait for procedure but would like to know when procedure will be.
[2024-11-14 06:59] LABS: Alanine Aminotransferase 13 U/L (10-49); Albumin, Serum 3.4 gm/dL (3.5-5.0); Albumin/Globulin Ratio 1.6 (1.2-2.2); Alkaline Phosphatase 74 U/L (46-116); Anion Gap 11 (7-16); Aspartate Amino Transferase 16 U/L (0-34); BUN/Creatinine Ratio 20 Ratio (12-20); Bilirubin,Total 0.4 mg/dL (0.3-1.2); Blood Urea Nitrogen 10 mg/dL (9-23); Calcium 9.1 mg/dL (8.3-10.6); Calcium (Corrected) 9.6 mg/dL (8.5-10.1); Carbon Dioxide 24.3 mMol/L (20.0-31.0); Chloride 101 mMol/L (98-107); Creatinine (Component) 0.5 mg/dL (0.6-1.3); Estimated Creatinine Clearance 148.6 mL/min (>60); Globulin 2.1 gm/dL (2.3-3.5); Glucose 92 mg/dL (74-106); Magnesium 1.6 mg/dL (1.6-2.6); Osmolality,Calculated 270 (275-295); Phosphorous 3.6 mg/dL (2.4-5.1); Potassium 3.8 mMol/L (3.4-5.1); Sodium 136 mMol/L (136-145); Total Protein 5.5 gm/dL (5.7-8.2); eGFR > 60 See Note
--- NOTE | 2024-11-14 07:15 | PC.NURSE ---
Alarm sounded into room pt pulling NGT out, x3 IV already out pt stating he wants to leave, informed pt to wait for MD pt agrees. Contacted Dr. Mckeon regarding pt wanting to leave MD NAJMA informed to call day team as he is already off.
--- NOTE | 2024-11-14 07:43 | PC.NURSE ---
Patient left AMA at 0720. Patient stated that he was tired of waiting for surgery and wanted to leave AMA. Dr. Bonner at bedside, explained the risks of leaving AMA, patient verbalized understanding. Patient pulled out IV's and NG tube. AMA forms signed by patient, Dr. Bonner, Anuja (RN), and Kay (RN).
--- NOTE | 2024-11-14 09:38 | PD.RESEVENT ---
Documentation for date of: 11/14/24 Event Note Event Note: The patient stated that he The patient has decided to sign out against medical advice (AMA) after being explained the risks & benefits of leaving before medical clearance/discharge. The patient had the opportunity to ask questions about their condition which were answered to their satisfaction; the patient is aware that they may return for further care at any time as needed. Patient was alert and oriented x4 with ability to demonstrate understanding of the above and signed the AMA form.
--- NOTE | 2024-11-14 10:49 | ESDS_ITS ---
<Statement entered by Jeffrey Witt MD - 11/14/24 13:58> 54-year-old male with past medical history of gastric outlet obstruction secondary to large duodenal ulcer presenting to the ED with episode of coffee- ground emesis and abdominal tenderness. Of note, patient has multiple admissions for similar presentation and has left AMA 3 times in the past. Patient was admitted and completed EGD with gastroenterology which confirmed presence of duodenal. Initially plan was for the patient to receive Billroth II procedure with general surgery; however, gastroenterology believed that esophageal dilation was suitable and could potentially lead to avoiding of complicated procedure. Patient was initially agreeable to the fact that they needed to wait an additional 48 hours for inflammation to subside prior to dilation; however, patient apparently pulled NG tube on 11/14 and demanded to be discharged. Explained to the patient extensively the importance of completing the procedure while he is admitted; however, patient was adamant about wanting to leave and so they left AGAINST MEDICAL ADVICE. I have personally seen and examined the patient. I agree with the resident's discharge summary as documented below. Jeffrey Witt DO PGY-2 Internal Medicine - GME Planned Discharge Date 11/14/24 DS: Providers Provider Date of admission: 11/11/24 13:51 Primary care physician: Physician No Primary/Family Admitting Provider: Mary España DO Attending Provider on Admission: Jose Alfredo Saxena MD Consults: 11/11/24 13:15 Consult to Gastroenterology Stat Comment: Consulting Provider: Karen Huerta 11/11/24 14:57 Consult to General Surgery Routine Comment: Consulting Provider: Bijal Ziegler 11/11/24 15:39 Referral Registered Dietitian Routine Comment: PPN, NPO for surgery on Attending Provider on DC: Jose Alfredo Saxena MD Discharging Provider: RESIDENT Yokasta Anticipated date of discharge: 11/14/24 DS: Diagnosis Problem List Completed Was Problem List Reviewed/Reconciled?: Yes Hospital Course Hospital Course Hospital course: Reason for hospitalization: Upper GI bleed and gastric outlet obstruction Summary: This patient is a 54-year-old male with a history of large duodenal ulcer, gastric outlet obstruction, and methamphetamine abuse who presented to [facility] ED on 11/11 with hematemesis. The patient was admitted for management of upper GI bleed and a gastric outlet obstruction. The patient has been admitted to [facility] 3 times, and has left AMA all 3 of those times. On 11/14, the patient has left AMA for the fourth time. During this hospitalization, and the previous hospitalizations, the patient was diagnosed with a large duodenal ulcer that resulted in obstruction of the pylorus and accumulation of gastric fluid, that refluxed up resulting in multiple ulcers in his esophagus. In the ED, the patient had vital significant for blood pressure of 135/98 and labs significant for WBC 11.8, hemoglobin 11.6, and potassium 2.5. Patient was started on pantoprazole drip and GI was consulted, who agreed to see the patient. General surgery was also consulted as the patient required surgical repair to relieve his gastric outlet obstruction. Patient was put n.p.o., NG tube was placed, and PPN was started. EGD performed on 11/12 again showed duodenal ulcer with esophageal ulcers. GI did discuss with general surgery about potentially dilating with a repeat EGD 48 hours after the first EGD to allow for inflammation to decrease as the duodenal ulcer did not seem as bad as the previous visit. General surgery agreed, and planned for exploratory laparotomy with enterectomy and gastrojejunostomy if dilation with EGD were to fail. However, on 11/14, when the patient would have had his second EGD, the patient decided to leave AGAINST MEDICAL ADVICE in the morning. The patient was found ripping out his IV and his NG tube at the time. The medicine team attempted to discuss the situation with the patient, however the patient was adamant about leaving and understood the risks of not receiving the necessary procedures that he needed. This makes the fourth time the patient has left AGAINST MEDICAL ADVICE for management of his duodenal ulcer and gastric outlet obstruction. Discharge Recommendations: - Follow up with PCP within 1 week of discharge - Continue rest of medications as previously prescribed - Return to the ED or call EMS if symptoms return and/or worsen If you don't have a PCP, you can make an appointment at the [facility]: [address] [place] [address] Hospital Diagnoses: #Upper GI bleed #Gastric outlet obstruction #Duodenal ulcer #Esophageal ulcers #Electrolyte abnormalities #Hypokalemia #Hypochloremia #Methamphetamine use disorder #Tobacco use disorder Patient plan of care was discussed with the senior resident Dr. Witt (PGY- 2) and attending physician Dr. Hemanth Aranda, PGY-1 Status at Discharge Functional status at discharge: independent ambulation Overall status at discharge: patient is not back to baseline Time Spent with Patient Time attestation: Total time spent providing and/or coordinating discharge services: Time spent: Greater than 30 minutes Exam Vital Signs Temp Pulse Resp BP Pulse Ox O2 Del Method O2 Flow Rate 97.7 F 68 18 93/61 96 Room Air 4 11/14/24 04:00 11/14/24 04:38 11/14/24 04:00 11/14/24 04:00 11/14/24 04:00 11/14/24 00:00 11/12/24 20:13 Discharge Plan Plan Patient Disposition: Left Against Medical Advice Prescriptions/Referrals Prescriptions/Med Rec: No Action No Known Home Medications Referrals: No Primary/Family,Physician [Primary Care Provider] Patient/Caregiver Discharge Instructions Print Language: Wolof Quality Discharge Quality Measures VTE prophylaxis MD Attestestation MD Attestation Face to face evaluation was performed by me. I have personally seen and examined the patient. I discussed the assessment and plan with the entire medicine team. I reviewed available medical records, imaging studies, laboratory results. I agree with the above subjective data, objective findings, assessment and plan except as corrected by me or noted below Gastric outlet obstruction Patient apparently did not want to wait and left AGAINST MEDICAL ADVICE, this not the first time apparently he is doing this- i am told 4th time. More than > 30 minutes spent on the encounter
== END 2024-11-14 07:25 | disposition left against medical advice (07) | DRG 380 ==
LOC: SERX 13:44 → SERHOLD 14:14 → S3SX 15:43
PROVIDERS: Admitting Provider Internal Medicine; Emergency Provider Emergency Medicine; Visit Provider Internal Medicine
DX: K31.1 Adult hypertrophic pyloric stenosis (principal); K26.4 Chronic or unspecified duodenal ulcer with hemorrhage; D62 Acute posthemorrhagic anemia; K22.10 Ulcer of esophagus without bleeding; F17.210 Nicotine dependence, cigarettes, uncomplicated; E87.6 Hypokalemia; F15.10 Other stimulant abuse, uncomplicated; E87.8 Other disorders of electrolyte and fluid balance, not elsewhere classified; Z53.29 Procedure and treatment not carried out because of patient's decision for other reasons
CPT/HCPCS: 36415; 74022; 80048; 80053; 80061; 80307; 80320; 81001; 83690; 83735; 84100; 84484; 85014; 85018; 85025; 85610; 85730; 86850; 86900; 86901; 86923; 87081; 93005; 93225; 94762; 96365; 96366; 99285; A4649; J0360; J1200; J2250; J2470; J3010; J3411; J3475; J3480; J3490; J7030; J7120; J7999; A9270; G0480

== ENCOUNTER 2024-11-29 17:26 | Inpatient (IN) | payer SELFPAY ==
[2024-11-29 17:30] VITALS: BP 133/88; PULSE 84; RESP 18; TEMP 36.7; O2SAT 99
--- NOTE | 2024-11-29 18:26 | XR_ITS ---
Examination: CT abdomen with intravenous contrast CT pelvis with intravenous contrast 2-D coronal reconstructions 2-D sagittal reconstructions Date and time of exam:November 29, 2024, 1934 hrs., Comparison October 18, 2024 Indications: Abdominal pain and vomiting beginning 4 days ago. CTDI: vol (mGy) 9.93 DLP: (mGycm) 384 Technique: Multiple axial sections of the abdomen and pelvis have been obtained. 64 slice high-resolution scanner used. 3 mm axial sections have been obtained, post intravenous injection 60 cc [id number]-370 2-D sagittal, coronal reconstructions obtained. Low dose protocols were performed. One or more of the following dose reduction techniques were used; automated exposure control, adjustment of the mA and/or KV according to patient size, use of iterative reconstruction technique. Findings: Retrocardiac gastric hernia with marked edema involving the hernia in the fundus of the stomach Fluid distended stomach, prominent No pancreatic liver or splenic lesion Aorta normal size No hydronephrosis or Fluid distended small bowel loops Mildly distended urinary bladder Mild prostatomegaly The osseous structures are intact Impression: Gastritis pattern Gastric outlet obstruction, likely secondary to antral gastritis and active peptic disease of the duodenum Recommend endoscopy follow-up to exclude gastric carcinoma Small bowel ileus
--- NOTE | 2024-11-29 18:26 | XR_ITS ---
Examination: Abdomen sonogram, Limited Date and time of exam: November 29, 2024 2009 hrs. Indications: Epigastric pain today Technique: Real-time overton scale transabdominal sonographic images of the upper abdomen obtained. Findings: Absent gallbladder Normal common bile duct 0.5 cm Pancreatic head 3.6 cm Liver 14 cm fatty infiltration Normal hepatopedal portal venous flow Patent IVC Impression: Normal common bile duct Distended stomach
--- NOTE | 2024-11-29 18:26 | EKG_ITS ---
[facility] Test Date: 2024-11-29 Pat Name: KENZIE LUCIA Department: Room: - Gender: Male [employer]: : 1970 Requested By: Ehsan Boyle Order Number: [id number] Reading MD: Ehsan Boyle Measurements Intervals Filion Rate: 77 P: 64 VA: 126 QRS: 73 QRSD: 94 T: -15 QT: 414 QTc: 471 Interpretive Statements SINUS RHYTHM NONSPECIFIC ST & T-WAVE ABNORMALITY Compared to ECG 11/11/2024 10:44:58 T-wave abnormality now present /store/S0/[id number]/[id number].pdf
--- NOTE | 2024-11-29 18:28 | EDNOTE_ITS ---
ED Abdominal Pain RME/HPI General Chief Complaint: Weakness Stated complaint: HYPOTENTION Time seen by provider: 11/29/24 17:55 Arrival date/time: 11/29/24 17:26 RME / HPI RME / HPI narrative: 54-year-old male patient with significant history of upper GI bleed, came in for evaluation regarding vomiting. Patient has been having epigastric pain, vomiting, for 4 days, today patient noticed coffee-ground vomitus. And was noted to have hypotension when the EMS arrived. Patient denies any fever denies any cough denies any vomiting blood. Denies any other complaints no medication was taken prior to ER visit. Patient told me that he stopped drinking alcohol more than a year ago. Related Data Home Medications ?Medication ?Instructions ?Recorded ?Confirmed No Known Home Medications 09/19/2405/06 Allergies Allergy/AdvReac Type Severity Reaction Status Date / Time No Known Allergies Allergy Verified 11/11/24 10:37 Review of Systems Review of Systems Narrative Review of Systems: Review of system reviewed and within normal limits except mentioned in HPI ED Exam Narrative Physical exam: VITAL SIGNS: Reviewed. GENERAL APPEARANCE: Alert and interactive, follows commands, no acute distress, HEAD AND FACE: Non-traumatic. ENT: PERRL, pink conjunctivitis, eyelid no trauma, Mucous membrane moist. NECK: Supple, nontender, no nuchal rigidity. CHEST: No tenderness, no crepitus, no paradoxical movement, no retractions. LUNGS: Clear, well ventilated, symmetric, no rales, no wheezing, no ronchi, no stridor, good breath sounds bilaterally. HEART: Regular rate, regular rhythm, no murmur, no gallops. ABDOMEN: Soft, positive bowel sounds, nondistended, no guarding, nontender, no rebound, no masses, RECTAL: Deferred. GENITAL: Deferred. NEUROLOGICAL: Gross motor function intact sensory function intact, Appropriate for age. MUSCULOSKELETAL: low back nontender, full range of motion. EXTREMITIES: Nontender, full range of motion. SKIN: Color pink, dry, no rash, no lacerations, no abrasions, no contusions. LYMPHATICS: Deferred. Course Quality Measures none Orders Category Date Time Status Bedside COVID-19 Antigen Test NOW Care 11/29/24 18:26 Active COVID-19 Screening Questionnaire NOW Care 11/29/24 21:[address] Screening NOW Care 11/29/24 18:27 Active Decision to Admit X1 Care 11/29/24 21:25 Active EKG (ED ONLY) *Do not use* NOW Care 11/29/24 18:26 Completed NG / OG Tube to LIS NOW Care 11/29/24 20:45 Active Occult blood,Gastric (Nursing) NEEDED Care 11/29/24 18:30 Active Occult blood,Gastric (Nursing) NEEDED Care 11/29/24 18:42 Active Consult to General Surgery Stat Cons 11/29/24 21:[address] abdomen pelvis w con Stat Exams 11/29/24 18:26 Completed EKG (ED Only) Stat Exams 11/29/24 18:26 Draft US gall bladder Stat Exams 11/29/24 18:26 Taken Alcohol, Blood Medical Stat Lab 11/29/24 18:45 Completed CBC Stat Lab 11/29/24 18:45 Completed Comprehensive Metabolic Panel Stat Lab 11/29/24 18:45 Completed Occult Blood, Gastric (LAB) Stat Lab 11/29/24 18:48 Completed Prothrombin Time with INR Stat Lab 11/29/24 18:45 Completed UA, C/S IF [Urinalysis, C/S if Indicated] Stat Lab 11/29/24 18:28 Ordered Famotidine Inj [Pepcid Inj] Med 11/29/24 18:26 Discontinued 20 mg IVP X1 ONE Ondansetron Inj [Zofran Inj] Med 11/29/24 18:26 Discontinued 4 mg IVP X1 ONE POTASSIUM CHL 10 mEq IVPB [Kcl Ivpb] Med 11/29/24 19:18 Discontinued 10 meq in 100 ml IV X1 Pantoprazole Inj [Protonix Inj] Med 11/29/24 21:24 Once 80 mg IVP X1 ONE Ringers Lactated 1000 ml [Lactated Ringers] 1,000 ml Med 11/29/24 18:26 Discontinued IV 999 mls/hr Vital Signs Vital signs: Vital Signs Temperature 98.1 F 11/29/24 17:30 Pulse Rate 84 11/29/24 17:30 Respiratory Rate 18 11/29/24 17:30 Blood Pressure 133/88 H 11/29/24 17:30 Pulse Oximetry (%) 99 11/29/24 17:30 Oxygen Delivery Method Room Air 11/29/24 17:30 Abdominal Pain MDM MDM Narrative MDM Narrative:: 54-year-old male patient with significant history of upper GI bleed, came in for evaluation regarding vomiting. Patient has been having epigastric pain, vomiting, for 4 days, today patient noticed coffee-ground vomitus. And was noted to have hypotension when the EMS arrived. Patient denies any fever denies any cough denies any vomiting blood. Denies any other complaints no medication was taken prior to ER visit. Patient told me that he stopped drinking alcohol more than a year ago. Laboratory workup came back with hemoglobin of 11.6 hematocrit of 34.6. Potassium 3.1 chloride 94 carbon dioxide of 35.6. Positive for gastric occult blood. CT scan of the abdomen and pelvis showed Gastritis pattern Gastric outlet obstruction, likely secondary to antral gastritis and active peptic disease of the duodenum Recommend endoscopy follow-up to exclude gastric carcinoma Small bowel ileus EKG showed sinus rhythm, ventricular rate of 77 bpm, no ST segment elevation or depression noted. NG tube was inserted, attached to the low intermittent suction. I spoke with Dr. Ziegler, general surgeon on-call, told me to asked the hospitalist to admit he will see the patient in the morning. Patient data External records reviewed:: [facility] previous records and None Clinical information provided by:: patient Social determinants that could affect healthcare access:: none Patient has the following chronic illnesses:: History of gastric outlet obstruction in the past history of upper GI bleed How is presenting disease/condition affected by chronic disease/condition?: exacerbated by Evaluation data The following diagnostics were reviewed and interpreted by me:: lab results, radiology exam(s) and EKG tracing(s) Lab and/or radiology exams considered but not ordered:: None Interpretation Summary: See results MDM Medications / Prescriptions Medications or Prescriptions considered but not ordered:: None Medication administrations:: Medication Administration History Pantoprazole Sodium (Pantoprazole Inj 40 Mg Vial) 80 mg IVP X1 ONE Stop: 11/29/24 21:25 Discontinued Medications Famotidine (Famotidine Inj 10 Mg/Ml Vial 2 Ml) 20 mg IVP X1 ONE Stop: 11/29/24 18:27 Last Admin: 11/29/24 18:37 Dose: 20 mg Documented By: GM Lactated Ringer's (Lactated Ringers) 1,000 mls @ 999 mls/hr IV .Q1H1M ONE Stop: 11/29/24 19:26 Last Infusion: 11/29/24 19:40 Dose: Infused Documented By: Admin: 11/29/24 18:38 Dose: 999 mls/hr Documented By: GM Potassium Chloride (Kcl Ivpb) 10 meq in 100 mls @ 100 mls/hr IV X1 ONE Stop: 11/29/24 20:17 Last Infusion: 11/29/24 21:10 Dose: Infused Documented By: Admin: 11/29/24 19:52 Dose: 100 mls/hr Documented By: CCT Ondansetron HCl (Ondansetron Inj 2 Mg/Ml Inj 2 Ml) 4 mg IVP X1 ONE; Protocol Stop: 11/29/24 18:27 Last Admin: 11/29/24 18:37 Dose: 4 mg Documented By: GM Zofran, potassium replacement, IV fluids, famotidine IV Consultations Consultation(s) initiated? (list below): No Diagnosis Differential diagnosis abdominal pain: abdominal pain, constipation and small bowel obstruction Most likely diagnosis given after review of the tests above:: Gastric outlet obstruction Admission Indicated Admission indicated?: indicated Admission Request Was there a request for admission?: Yes Admission Attestation Admission request attestation: Discussed case with [Dr. Gordon] from Hospitalist service regarding admission. Discussed patients ED course, exam findings, labs, and radiology results. The Hospitalist [agrees] to accept the patient for admission. Disposition Plan Disposition Plan: Admit Discharge Plan Plan Patient Disposition: Admit Acute Care w/in Hospital Discharge Disposition comment: Stable Prescriptions/Referrals Prescriptions/Med Rec: No Action No Known Home Medications Referrals: No Primary/Family,Physician [Primary Care Provider] - In 1 week Problem List Clinical Impression: Gastric outlet obstruction Patient/Caregiver Discharge Instructions Print Language: Amharic Stand Alone Forms: Anna Award Info., Patient Portal Info Letter
[2024-11-29 18:35] VITALS: BP 147/103; PULSE 83; RESP 20; TEMP 37; O2SAT 100; BMI 19.5
[2024-11-29] MEDS: ONDANSETRON INJ 2 MG/ML INJ 2 ML 4 MG IVP (18:37)
[2024-11-29] MEDS: FAMOTIDINE INJ 10 MG/ML VIAL 2 ML 20 MG IVP (18:37)
[2024-11-29] MEDS: RINGERS LACTATED 1000 ML 1,000 ML 999 ML IV (18:38)
[2024-11-29 19:00] LABS: Basophils # (Auto) 0.0 Thou/mm3 (0.0-0.2); Basophils % (Auto) 0 % (0-2.5); Eosinophils # (Auto) 0.0 Thou/mm3 (0.0-0.5); Eosinophils % (Auto) 0 % (0-10); Hematocrit 34.6 % (41.0-53.0); Hemoglobin 11.6 g/dL (13.5-16.0); Immature Granulocytes Auto 0.03 Thou/mm3 (0.00-0.00); Lymphocytes # (Auto) 0.6 Thou/mm3 (1.0-4.8); Lymphocytes % (Auto) 5 % (10-50); Mean Corpuscular HGB Conc 33.5 g/dl (31.0-37.0); Mean Corpuscular Hemoglobin 33.5 pg (25.0-35.0); Mean Corpuscular Volume 100 fL (80-100); Monocytes # (Auto) 0.6 Thou/mm3 (0.0-0.8); Monocytes % (Auto) 5 % (0-12); Neutrophils # (Auto) 10.3 Thou/mm3 (1.8-7.7); Neutrophils % (Auto) 90 % (37-80); Nucleated Red Blood Cell # 0.00 Thou/mm3 (0.00-0.00); Nucleated Red Blood Cell % 0 /100 WBC (0); Platelet Count 428 Thou/mm3 (140-440); RDW Standard Deviation 53.1 fL (35.1-43.9); Red Blood Count 3.46 Miln/mm3 (4.50-5.90); White Blood Count 11.5 Thou/mm3 (3.8-10.6)
[2024-11-29 19:08] LABS: INR 1.1 (0.9-1.3); Prothrombin Time 11.2 Seconds (9.0-12.2)
[2024-11-29 19:14] LABS: Alanine Aminotransferase 22 U/L (10-49); Albumin, Serum 4.5 gm/dL (3.5-5.0); Albumin/Globulin Ratio 1.7 (1.2-2.2); Alcohol, Blood Medical < 3.0 mg/dL (0-10.0); Alkaline Phosphatase 120 U/L (46-116); Anion Gap 10 (7-16); Aspartate Amino Transferase 26 U/L (0-34); BUN/Creatinine Ratio 16 Ratio (12-20); Bilirubin,Total 0.6 mg/dL (0.3-1.2); Blood Urea Nitrogen 14 mg/dL (9-23); Calcium 9.9 mg/dL (8.3-10.6); Calcium (Corrected) 9.9 mg/dL (8.5-10.1); Carbon Dioxide 35.6 mMol/L (20.0-31.0); Chloride 94 mMol/L (98-107); Creatinine (Component) 0.9 mg/dL (0.6-1.3); Estimated Creatinine Clearance 76.0 mL/min (>60); Globulin 2.6 gm/dL (2.3-3.5); Glucose 123 mg/dL (74-106); Osmolality,Calculated 280 (275-295); Potassium 3.1 mMol/L (3.4-5.1); Sodium 140 mMol/L (136-145); Total Protein 7.1 gm/dL (5.7-8.2); eGFR > 60 See Note
--- NOTE | 2024-11-29 19:34 | PC.NURSE ---
Pt taken to CT via [facility]
[2024-11-29 19:37] LABS: OBG Card Expiration Date 12-26; OBG Card Lot # 2054210; OBG Developer Lot # 75027G; OBG Performed By MADRG3; OBG QC OK? Yes
[2024-11-29 19:40] LABS: Occult Blood, Gastric Positive (Negative)
[2024-11-29] MEDS: POTASSIUM CHL 10 mEq IVPB 10 MEQ/100 ML BAG 100 MEQ IV ×2 (19:52→23:12)
[2024-11-29 20:05] VITALS: BP 128/92; PULSE 78; RESP 17; TEMP 36.8; O2SAT 99
[2024-11-29 21:30] LABS: Collection Type, Urine Clean Catch
--- NOTE | 2024-11-29 21:36 | XR_ITS ---
Examination: Abdomen AP single view Technique: AP portable supine abdomen, single view Exam date and time: November 29, 2024, 2145 hrs. Indications: Orogastric tube placement Findings: Orogastric tube in the stomach satisfactory position Air distended colon and small bowel ileus Impression: Orogastric tube in the stomach satisfactory position
[2024-11-29 21:45] LABS: Bilirubin,Urine Negative (Negative); Blood,Urine Negative (Negative); Budding Yeast,Urine Present; Clarity,Urine Clear (Clear/Hazy); Color,Urine Yellow (Lt Yel-Yel); Culture Indicated,Urine Not Indicated; Glucose, Urine Negative (Negative); Hyaline Casts,Urine < 1 /hpf (0-1); Ketones,Urine Negative (Negative); Leukocyte Esterase,Urine Negative (Negative); Nitrite,Urine Negative (Negative); PH,Urine 8.5 (5.0-7.0); Protein,Urine 2+ (Neg - Trace); RBC,Urine 17 /hpf (0-3); Squamous Epithelial Cell,Urine < 1 /hpf (0-5); Urobilinogen,Urine Negative mg/dL (0.0-1.0); WBC,Urine 5 /hpf (0-5)
[2024-11-29 22:04] LABS: Specific Gravity,Urine 1.010 (1.001-1.035)
--- NOTE | 2024-11-29 22:14 | ESHP_ITS ---
<Statement entered by Lazaro Hazel MD - 11/30/24 03:35> 54-year-old male with past medical history of gastric outlet obstruction likely secondary to large duodenal ulcer admitted for the main use was admitted to hospital on 11/30/2024 due to gastric outlet obstruction with intractable nausea and vomiting. Patient was recently seen in our hospital this month and on 11/14/2024 patient left AMA that he had previously left AMA as well. Repeat abdomen/pelvis CT showed gastric outlet obstruction. ER spoke with general surgery who will see the patient for possible surgical intervention. Patient has NG tube to low intermittent suction, had 1.7 L output upon placement. Gave Protonix, IV fluids, potassium, pain management. I have personally examined the patient. Note reviewed and agree with care plan as documented please refer to the note below for further details. Case disclosed with Attending Dr. Bethany Hazel PGY2 Disclaimer: Even though this this note was dictated by speech recognition and even though it was carefully revised there may still be minor errors in smooth stucco resurfacer due to voice recognition software. Documentation for date of: 11/29/24 HPI History of Present Illness Chief complaint: Hematemesis/cofee ground emesis History of present illness: Mr. Cannon is 54-year-old male with past medical history of large duodenal ulcer, gastric outlet obstruction and methamphetamine use who presented to the ED on 11/29/2024 with chief complaint of 3 to 4 days of vomiting. Patient reports that for the 3 to 4 days he has been having coffee-ground emesis mixed with some streaks of hematemesis. Associated abdominal pain nausea, generalized weakness, shortness of breath with each emesis and fatigue. He atributes fatigue to poor oral intake for the last few days. Patient also endorses mid chest pressure that feels like gastric reflux, denies pain and pressure radiation.Patient denies chest pain, fever, chills, melena and hematochezia. Of note patient is on multiple similar admissions for which she has AMA 4 times in the past. Last EGD done was 11/12/2024, which confirmed abdominal ulcer. The plan was to do Billroth II procedure with general surgery, however Dr. Huerta (GI) believe that esophageal dilation for more suitable at a point. Patient initially agreed, however AMA on 11/14/2024. Patient does not have a primary care provider he follows outpatient. ED Course: -Initial vitals were BP 133/88, pulse 84, respiratory 18, temperature 91.1, O2 sat 99% on room air. -Labs significant for leukocytosis 11.5, hemoglobin 11.6, hematocrit 34.6, potassium 4.1, chloride 94, bicarb 35.6, glucose 103, alkaline phosphatase 120. UA was negative. U tox positive methamphetamine. -Imaging included abdominal ultrasound showed orogastric tube in the stomach. EKG showed sinus rhythm with nonspecific ST and T wave abnormality. However, after admission patient reported worsening chest pressure, repeat EKG shows sinus rhythm and troponin negative. -In the ED, patient was given on the Zofran 4mg x 1, famotidine 20 Mg x 1, 10 meq potassium chloride IV x 1, pantoprazole 80 mg IV x 1 -Patient was admitted for gastric outlet obstruction management Review of Systems Review of systems otherwise negative except what is mentioned above. Past Medical History: Mentioned above Family History: Could not report Surgical History: Patient Social History: Denies current alcohol use, denies recreational drug use. However U-Tox positive for methamphetamine. Smokes 1 pack/day since 9 years old. 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 Currently lives in clients home. Current Medications: Allergies: No known drug allergies Exam Vital Signs Temp Pulse Resp BP Pulse Ox O2 Del Method 98.3 F 78 17 128/92 H 99 Room Air 11/29/24 20:05 11/29/24 20:05 11/29/24 20:05 11/29/24 20:05 11/29/24 20:05 11/29/24 20:05 Narrative Exam General: Disheveled, ill-appearing alert Skin: Warm, dry, intact. No rash or ecchymoses. Head: Normocephalic, atraumatic. Eye: Injected conjunctiva, PERRL. Throat: Oral mucosa dry. No obvious lesions in oropharynx. Cardiovascular: Regular rate and rhythm, no murmur, +S1/S2. Respiratory: Lungs are clear to auscultation, respirations unlabored, no crackles, no wheezing. Gastrointestinal: Soft, diffusely tender to palpation, non-distended. No guarding or rebound tenderness. Extremities: No edema, no cyanosis, no clubbing. Neuro: Alert and oriented x3.No focal deficits observed. Conversant, moving all extremities. No overt cerebellar signs/incoordination. Psychiatric: Cooperative, appropriate affect Results: Labs 11/30/24 05:00 11/30/24 05:00 Labs: Short CBC 11/29/24 Range/Units 18:45 WBC 11.5 H (3.8-10.6) Thou/mm3 Hgb 11.6 L (13.5-16.0) g/dL Hct 34.6 L (41.0-53.0) % Plt Count 428 D (140-440) Thou/mm3 BMP 11/29/24 18:45 Sodium 140 Potassium 3.1 L Chloride 94 L Carbon Dioxide 35.6 H BUN 14 Creatinine 0.9 Glucose 123 H Calcium 9.9 Liver Function 11/29/24 Range/Units 18:45 Total Bilirubin 0.6 (0.3-1.2) mg/dL AST 26 (0-34) U/L ALT 22 (10-49) U/L Alkaline Phosphatase 120 H (46-116) U/L Albumin 4.5 (3.5-5.0) gm/dL Urine 11/29/24 Range/Units 21:15 Urine Color Yellow (Lt Yel-Yel) Urine Clarity Clear (Clear/Hazy) Urine pH 8.5 H (5.0-7.0) Ur Specific [place] 1.010 (1.001-1.035) Urine Protein 2+ A (Neg - Trace) Urine Glucose (UA) Negative (Negative) Quality Measures Quality Measures none Medications Home Medications and Allergies Home Medications ?Medication ?Instructions ?Recorded ?Confirmed ?Type No Known Home Medications 09/19/2411/11 History Allergies Allergy/AdvReac Type Severity Reaction Status Date / Time No Known Allergies Allergy Verified 11/11/24 10:37 Visit Medications Hydromorphone HCl (Hydromorphone Inj 2 Mg/Ml Vial) 0.5 mg IVP Q4HR PRN PRN Reason: PAIN SCALE 4-6 (Moderate Stop: 12/04/24 22:01 Potassium Chloride (Kcl Ivpb) 10 meq in 100 mls @ 100 mls/hr IV Q1H CHASITY Stop: 11/30/24 01:05 Lactated Ringer's (Lactated Ringers) 1,000 mls @ 100 mls/hr IV .Q10H CHASITY Stop: 10/20/25 22:14 Pantoprazole Sodium (Pantoprazole Inj 40 Mg Vial) 40 mg IVP BID CHASITY Stop: 12/30/24 07:59 Discontinued Medications Famotidine (Famotidine Inj 10 Mg/Ml Vial 2 Ml) 20 mg IVP X1 ONE Stop: 11/29/24 18:27 Last Admin: 11/29/24 18:37 Dose: 20 mg Lactated Ringer's (Lactated Ringers) 1,000 mls @ 999 mls/hr IV .Q1H1M ONE Stop: 11/29/24 19:26 Last Infusion: 11/29/24 19:40 Dose: Infused Potassium Chloride (Kcl Ivpb) 10 meq in 100 mls @ 100 mls/hr IV X1 ONE Stop: 11/29/24 20:17 Last Infusion: 11/29/24 21:10 Dose: Infused Ondansetron HCl (Ondansetron Inj 2 Mg/Ml Inj 2 Ml) 4 mg IVP X1 ONE; Protocol Stop: 11/29/24 18:27 Last Admin: 11/29/24 18:37 Dose: 4 mg Pantoprazole Sodium (Pantoprazole Inj 40 Mg Vial) 80 mg IVP X1 ONE Stop: 11/29/24 21:25 Pantoprazole Sodium (Pantoprazole Inj 40 Mg Vial) 40 mg IVP BID CHASITY Stop: 12/29/24 21:59 Assessment & Plan Plan Mr. Cannon is 89-year-old male with past medical history of large duodenal ulcer, gastric outlet obstruction and methamphetamine use who presented to the ED on 11/29/2024 with chief complaint of 3 to 4 days of vomiting. Admitted for gastric outlet obstruction management. #Upper GI bleed #Gastric outlet obstruction #Duodenal ulcer On last admission patient was diagnosed with gastric outlet obstruction and abdominal ulcer for which appropriate treatment was started however was not completed due to living AGAINST MEDICAL ADVICE. Additionally patient was scheduled for exploratory laparotomy with Billroth II procedure given the gastric outlet obstruction but patient left AMA before this could be completed. Patient has now returned with the same symptoms for the past 3 to 4 days. Patient is made aware of the plan for possible procedure tomorrow per surgeon recommendation. Patient received 80 mg Protonix x 1, Zofran 4 mg x 1 for nausea/vomiting, famotidine 20 mg x 1 in the ED. Gastric occult blood positive. NGT 1.7 L output 11/14/2024 EGD: Esophageal ulcer, duodenal bulb ulcer - NG tube placed with intermittent suction -Aspiration precaution, HOB elevated > 45 degrees - Patient n.p.o. - Protonix 40 mg IV twice daily - IV NS fluids at 100mls/hr - Pain control with Dilaudid 0.5 mg IVP as needed - General Surgery consulted by ED, appreciate recommendations #Normocytic anemia, chronic Likely secondary to hematemesis. Patient stable. Hemoglobin 11.6, hematocrit 34.6 -Continue to monitor H&H #Electrolyte abnormalities #Hypokalemia #Hypochloremia #Non-anion gap metabolic alkalosis Electrolyte abnormality and NAGMA most likely secondary to frequent vomiting. Patient received 10meq Kcl chloride IV in the ED, then 50 meq KCl IV once admitted. Potassium 3.1, chloride 94, bicarb 35.6. anion gap 10 -Continue to monitor -Replete electrolytes as needed - IV fluid hydration #Methamphetamine use disorder Patient denies use on admission, however UTOX was positive . Patient was endorsing chest pressure, but denies chest pain. Repeat EKG was ordered and showed sinus rhythm and troponin<0.020. -Monitor for for withdrawal symptom -Counseled regarding dangers and consequences -trim line worker referral #Tobacco use disorder - Nicotine patch 14mg qday -Referral to smoking cessation counseling - Referral to bilingual social worker for tobacco use cessation Hospital management: Lines: peripheral IV Diet: NPO GI prophylaxis: pantoprazole DVT prophylaxis: SCDs Disposition: tele for management of GOO CODE STATUS: Full code Patient seen and assessed under supervision of attending physician and discuss with senior resident Dr. Gordon PGY-2 Evangelina Purcell MD PGY-1, Internal Medicine Please note: this document was transcribed using voice recognition technology; minor inaccuracies may be present. Attending Provider Attestation/Addendum After examination of the patient and review of the clinical data I feel that this patient needs admission to the hospital for further treatment/evaluation. Plan of care discussed with patient and is in agreement. I Heath Sims MD, attest that I was physically present for jimenez portions of evaluation, and examined patient, labs and imagings and plan of care were discussed with IM residents team, and I agree with the findings and plans documented above.
[2024-11-29 22:32] LABS: Magnesium 2.3 mg/dL (1.6-2.6)
[2024-11-29 22:35] VITALS: BP 136/92; PULSE 82; RESP 17; TEMP 37; O2SAT 97
[2024-11-29] MEDS: SODIUM CHLORIDE 0.9% 1000 ML 1,000 ML 100 ML IV (23:12)
--- NOTE | 2024-11-29 23:30 | PC.NURSE ---
Report given to ORESTES Trimble Med-surg
[2024-11-29 23:47] VITALS: BMI 19.5
[2024-11-30] VITALS: BP 110/77; PULSE 82; RESP 17; TEMP 36.7; O2SAT 99
--- NOTE | 2024-11-30 00:17 | EKG_ITS ---
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
[2024-11-30] MEDS: POTASSIUM CHL 10 mEq IVPB 10 MEQ/100 ML BAG 100 MEQ IV ×4 (00:24→03:25)
[2024-11-30] MEDS: HYDROmorphone INJ 2 MG/ML VIAL 0.5 MG IVP (00:42)
[2024-11-30 00:58] LABS: Amphetamine/Methamp Scrn,U Positive (Negative); Barbiturate Screen,Urine Negative (Negative); Benzodiazepines Screen,Urine Negative (Negative); Benzoylecgonine Screen, Ur Negative (Negative); Fentanyl Screen,Urine Negative (Negative); Opiate Screen,Urine Negative (Negative); THC Screen,Urine Negative (Negative)
[2024-11-30 01:19] LABS: Troponin I < 0.020 ng/mL (0.0-0.045)
[2024-11-30 04:00] VITALS: BP 98/74; PULSE 81; RESP 16; TEMP 36.4; O2SAT 97
[2024-11-30 05:33] LABS: Basophils # (Auto) 0.1 Thou/mm3 (0.0-0.2); Basophils % (Auto) 1 % (0-2.5); Eosinophils # (Auto) 0.1 Thou/mm3 (0.0-0.5); Eosinophils % (Auto) 1 % (0-10); Hematocrit 32.6 % (41.0-53.0); Hemoglobin 10.6 g/dL (13.5-16.0); Immature Granulocytes Auto 0.01 Thou/mm3 (0.00-0.00); Lymphocytes # (Auto) 1.7 Thou/mm3 (1.0-4.8); Lymphocytes % (Auto) 20 % (10-50); Mean Corpuscular HGB Conc 32.5 g/dl (31.0-37.0); Mean Corpuscular Hemoglobin 32.8 pg (25.0-35.0); Mean Corpuscular Volume 101 fL (80-100); Monocytes # (Auto) 0.7 Thou/mm3 (0.0-0.8); Monocytes % (Auto) 8 % (0-12); Neutrophils # (Auto) 5.7 Thou/mm3 (1.8-7.7); Neutrophils % (Auto) 70 % (37-80); Nucleated Red Blood Cell # 0.00 Thou/mm3 (0.00-0.00); Nucleated Red Blood Cell % 0 /100 WBC (0); Platelet Count 389 Thou/mm3 (140-440); RDW Standard Deviation 52.9 fL (35.1-43.9); Red Blood Count 3.23 Miln/mm3 (4.50-5.90); White Blood Count 8.1 Thou/mm3 (3.8-10.6)
[2024-11-30 05:53] LABS: Alanine Aminotransferase 18 U/L (10-49); Albumin, Serum 3.8 gm/dL (3.5-5.0); Albumin/Globulin Ratio 1.7 (1.2-2.2); Alkaline Phosphatase 102 U/L (46-116); Anion Gap 7 (7-16); Aspartate Amino Transferase 21 U/L (0-34); BUN/Creatinine Ratio 20 Ratio (12-20); Bilirubin,Total 0.9 mg/dL (0.3-1.2); Blood Urea Nitrogen 14 mg/dL (9-23); Calcium 8.8 mg/dL (8.3-10.6); Calcium (Corrected) 9.0 mg/dL (8.5-10.1); Carbon Dioxide 31.0 mMol/L (20.0-31.0); Chloride 98 mMol/L (98-107); Creatinine (Component) 0.7 mg/dL (0.6-1.3); Estimated Creatinine Clearance 97.7 mL/min (>60); Globulin 2.3 gm/dL (2.3-3.5); Glucose 70 mg/dL (74-106); Magnesium 2.0 mg/dL (1.6-2.6); Osmolality,Calculated 270 (275-295); Phosphorous 3.3 mg/dL (2.4-5.1); Potassium 4.2 mMol/L (3.4-5.1); Sodium 136 mMol/L (136-145); Total Protein 6.1 gm/dL (5.7-8.2); eGFR > 60 See Note
[2024-11-30 07:20] VITALS: BP 105/58; PULSE 89; RESP 16; TEMP 36.4; O2SAT 97
--- NOTE | 2024-11-30 07:27 | ESPR_ITS ---
<Statement entered by Romel Souza MD - 12/04/24 17:39> I reviewed above note and agree with findings and plans. I have also personally examined the patient with medicine team and went over assessment and plan with medical team including internet marketing director and resident physician. <Statement entered by Ashley Leuvano MD - 11/30/24 15:59> Patient examined at bedside. Admitted for surgical management of vomiting secondary to gastric outlet obstruction. Patient has had recurrent admissions due to abdominal pain with similar symptoms.There is EGD completed on 11/12 during last admission which showed esophageal ulcers, pyloric channel swelling, duodenal bulb ulcer. Patient left AMA at that time without any intervention. Today, he is wanting to leave AMA again. Risks of leaving were discussed. Patient expressed understanding but still desired to leave. 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 AMA form signed. Encouraged to return to ED if symptoms return or worsen. The patient's management plan was discussed with my attending physician Dr. Souza. Ashley Luevano, PGY-2 Documentation for date of: 11/30/24 Subjective Subjective Interval history: Mr. Cannon is 89-year-old male with past medical history of large duodenal ulcer, gastric outlet obstruction and methamphetamine use who presented to the ED on 11/29/2024 with chief complaint of 3 to 4 days of vomiting. Admitted for gastric outlet obstruction management. 11/30/2024: Patient seen and examined at bedside, he is seen sleeping with ng tube in place on low intermittent suction, with coffee ground output noted. he has no abdominal pain on exam. his labs and vitals were reviewd. Toney plans to take patient to surgery. currently NPO. Exam Vital Signs Temp Pulse Resp BP Pulse Ox O2 Del Method 97.5 F 89 16 105/58 L 97 Room Air 11/30/24 07:20 11/30/24 07:20 11/30/24 07:20 11/30/24 07:20 11/30/24 07:20 11/30/24 07:20 Narrative Exam General: frai,, sleeping with ng tube in place on suction Skin: Warm, dry, intact. No rash or ecchymoses. Head: Normocephalic, atraumatic., NG tube in place on suction with coffee ground output. temporal wasting Eye: Injected conjunctiva, PERRL. Throat: Oral mucosa dry. No obvious lesions in oropharynx. Cardiovascular: Regular rate and rhythm, no murmur, +S1/S2. Respiratory: Lungs are clear to auscultation, respirations unlabored, no crackles, no wheezing. Gastrointestinal: Soft, nontender to palpation, diminished bowel sounds, non- distended. No guarding or rebound tenderness. Extremities: No edema, no cyanosis, no clubbing. Neuro: Alert and oriented x3.No focal deficits observed. somnolent yet arousable moving all extremities. No overt cerebellar signs/incoordination. Psychiatric: Cooperative, appropriate affect Objective Labs 11/30/24 05:00 11/30/24 05:00 Labs: Laboratory Results - last 24 hr 11/29/24 11/29/24 11/29/24 18:45 18:48 18:48 WBC 11.5 H RBC 3.46 L Hgb 11.6 L Hct 34.6 L MCV 100 MCH 33.5 MCHC 33.5 RDW Std Deviation 53.1 H Plt Count 428 D Neut % (Auto) 90 H Lymph % (Auto) 5 L Bledsoe % (Auto) 5 Eos % (Auto) 0 Baso % (Auto) 0 Neut # (Auto) 10.3 H Lymph # (Auto) 0.6 L [place]e # (Auto) 0.6 Eos # (Auto) 0.0 Baso # (Auto) 0.0 Immature Gran # (Auto) 0.03 H Absolute Nucleated RBC 0.00 Immature Gran % 0 Nucleated RBC % 0 PT 11.2 INR 1.1 Sodium 140 Potassium 3.1 L Chloride 94 L Carbon Dioxide 35.6 H Anion Gap 10 BUN 14 Creatinine 0.9 Estim Creat Clear Calc 76.0 eGFR > 60 BUN/Creatinine Ratio 16 Glucose 123 H Calculated Osmolality 280 Calcium 9.9 Corrected Calcium 9.9 Phosphorus Magnesium 2.3 Total Bilirubin 0.6 AST 26 ALT 22 Alkaline Phosphatase 120 H Troponin I Total Protein 7.1 Albumin 4.5 Globulin 2.6 Albumin/Globulin Ratio 1.7 Ur Collection Type Urine Color Urine Clarity Urine pH Ur Specific [place] Urine Protein Urine Glucose (UA) Urine Ketones Urine Blood Urine Nitrite Urine Bilirubin Urine Urobilinogen (Auto) Ur Leukocyte Esterase Urine RBC Urine WBC Ur Squamous Epith Cells Urine Bacteria Hyaline Casts Urine Yeast (Budding) Ur Culture Indicated? Gastric Occult Blood Positive A Cancelled Urine Opiates Screen Urine Fentanyl Screen Ur Barbiturates Screen U Amphetamin/Meth Scrn U Benzodiazepines Scrn U Cocaine Metab Screen U Marijuana (THC) Screen Ethyl Alcohol < 3.0 11/29/24 11/30/24 11/30/24 21:15 00:27 05:00 WBC 8.1 RBC 3.23 L Hgb 10.6 L Hct 32.6 L MCV 101 H MCH 32.8 MCHC 32.5 RDW Std Deviation 52.9 H Plt Count 389 D Neut % (Auto) 70 Lymph % (Auto) 20 Bledsoe % (Auto) 8 Eos % (Auto) 1 Baso % (Auto) 1 Neut # (Auto) 5.7 Lymph # (Auto) 1.7 [place]led[place]e # (Auto) 0.7 Eos # (Auto) 0.1 Baso # (Auto) 0.1 Immature Gran # (Auto) 0.01 H Absolute Nucleated RBC 0.00 Immature Gran % 0 Nucleated RBC % 0 PT INR Sodium 136 Potassium 4.2 D Chloride 98 Carbon Dioxide 31.0 Anion Gap 7 BUN 14 Creatinine 0.7 Estim Creat Clear Calc 97.7 eGFR > 60 BUN/Creatinine Ratio 20 Glucose 70 L D Calculated Osmolality 270 L Calcium 8.8 Corrected Calcium 9.0 Phosphorus 3.3 Magnesium 2.0 Total Bilirubin 0.9 AST 21 ALT 18 Alkaline Phosphatase 102 Troponin I < 0.020 Total Protein 6.1 Albumin 3.8 D Globulin 2.3 Albumin/Globulin Ratio 1.7 Ur Collection Type Clean Catch Urine Color Yellow Urine Clarity Clear Urine pH 8.5 H Ur Specific [place] 1.010 Urine Protein 2+ A Urine Glucose (UA) Negative Urine Ketones Negative Urine Blood Negative Urine Nitrite Negative Urine Bilirubin Negative Urine Urobilinogen (Auto) Negative Ur Leukocyte Esterase Negative Urine RBC 17 H Urine WBC 5 Ur Squamous Epith Cells < 1 Urine Bacteria None Hyaline Casts < 1 Urine Yeast (Budding) Present A Ur Culture Indicated? Not Indicated Gastric Occult Blood Urine Opiates Screen Negative Urine Fentanyl Screen Negative Ur Barbiturates Screen Negative U Amphetamin/Meth Scrn Positive A U Benzodiazepines Scrn Negative U Cocaine Metab Screen Negative U Marijuana (THC) Screen Negative Ethyl Alcohol Quality Measures Quality Measures none Assessment & Plan Assessment Current Active Medications: Generic Name Dose Route Start Last Admin Trade Name Freq PRN Reason Stop Dose Admin Hydromorphone HCl 0.5 mg 11/30/24 00:18 11/30/24 00:42 Hydromorphone Inj 2 Mg/Ml Vial IVP 12/04/24 22:01 0.5 mg Q4HR PRN Administration PAIN SCALE 4-10(Mod-Sev Sodium Chloride 1,000 mls @ 100 mls/hr 11/29/24 22:35 11/29/24 23:12 Ns IV 11/30/24 18:34 100 mls/hr .Q10H CHASITY Administration Nicotine 14 mg 11/30/24 09:00 Nicotine Patch 14 Mg/24 Hr Patch.Td24 TOP 12/30/24 08:59 QDAY CHASITY Pantoprazole Sodium 40 mg 11/30/24 08:00 Pantoprazole Inj 40 Mg Vial IVP 12/30/24 07:59 BID CHASITY Plan Mr. Cannon is 89-year-old male with past medical history of large duodenal ulcer, gastric outlet obstruction and methamphetamine use who presented to the ED on 11/29/2024 with chief complaint of 3 to 4 days of vomiting. Admitted for gastric outlet obstruction management, pending surgery with toney, ng tube in place, npo. #Upper GI bleed #Gastric outlet obstruction #Duodenal ulcer #Concerning for gastric malignancy On last admission patient was diagnosed with gastric outlet obstruction and abdominal ulcer for which appropriate treatment was started however was not completed due to living AGAINST MEDICAL ADVICE. Additionally patient was scheduled for exploratory laparotomy with Billroth II procedure given the gastric outlet obstruction but patient left AMA before this could be completed. Patient has now returned with the same symptoms for the past 3 to 4 days. Patient is made aware of the plan for procedure tomorrow per surgeon recommendation. Gastric occult blood positive. NGT 1.7 L output initially 11/14/2024 EGD: Esophageal ulcer, duodenal bulb ulcer - NG tube placed with intermittent suction with coffee ground output -Aspiration precaution, HOB elevated > 45 degrees - Patient n.p.o. - Protonix 40 mg IV twice daily - IV NS fluids at 100mls/hr - Pain control with Dilaudid 0.5 mg IVP as needed - General Surgery consulted by ED, appreciate recommendations- plant to take to surgery #Normocytic anemia, chronic Likely secondary to hematemesis. Patient stable. [id number]--> 10.6, hematocrit 34.6 -Continue to monitor H&H - transfuse if <7 #Electrolyte abnormalities #Hypokalemia #Hypochloremia #Non-anion gap metabolic alkalosis Electrolyte abnormality and NAGMA most likely secondary to frequent vomiting. Patient received 10meq Kcl chloride IV in the ED, then 50 meq KCl IV once admitted. Potassium 3.1, chloride 94, bicarb 35.6. anion gap 10 -Continue to monitor -Replete electrolytes as needed - IV fluid hydration #Methamphetamine use disorder Patient denies use on admission, however UTOX was positive . Patient was endorsing chest pressure, but denies chest pain. Repeat EKG was ordered and showed sinus rhythm and troponin<0.020. -Monitor for for withdrawal symptom -Counseled regarding dangers and consequences -stock worker and deliverer referral #Tobacco use disorder - Nicotine patch 14mg qday - Referral to smoking cessation counseling - Referral to social service manager for tobacco use cessation # Anorexia # Malnutrition # BMI 19 - dietition consult, appreciate recs, Hospital management: Lines: peripheral IV Diet: NPO GI prophylaxis: pantoprazole DVT prophylaxis: SCDs Disposition: tele for management of gastric outlet obstruction, ng tube in place, pending surgery with toney CODE STATUS: Full code Plan discussed with Dr. Luevano, and Dr. Libby Gregg MD PGY1
[2024-11-30] MEDS: NICOTINE PATCH 14 MG/24 HR PATCH.TD24 TOP (08:20)
[2024-11-30] MEDS: SODIUM CHLORIDE 0.9% 1000 ML 1,000 ML 100 ML IV (09:48)
--- NOTE | 2024-11-30 10:11 | PD.SURCONS ---
HPI Consult details Consult date: 11/30/24 Reason for consultation narrative: Gastric outlet obstruction with coffee-ground emesis History of present illness: 54-year-old male with history of tobacco use disorder and methamphetamine use was admitted multiple times due to coffee-ground emesis. He was noted to have large duodenal ulcer causing gastric outlet obstruction. He was scheduled for exploratory laparotomy, antrectomy with gastrojejunostomy on 2 different occasions, however he left the hospital AGAINST MEDICAL ADVICE. He is presented with similar complaints of coffee-ground emesis. Meds Home Medications and Allergies Home Medications ?Medication ?Instructions ?Recorded ?Confirmed ?Type No Known Home Medications 09/19/24 11/30/24 History Allergies Allergy/AdvReac Type Severity Reaction Status Date / Time No Known Allergies Allergy Verified 11/11/24 10:37 Exam Vital Signs Temp Pulse Resp BP Pulse Ox O2 Del Method 97.5 F 89 16 105/58 L 97 Room Air 11/30/24 07:20 11/30/24 07:20 11/30/24 07:20 11/30/24 07:20 11/30/24 07:20 11/30/24 07:20 Assessment & Plan Problem List (1) Gastric outlet obstruction: Status: Acute (2) Duodenal ulcer: Status: Acute Plan NG tube decompression, n.p.o. with parenteral nutrition. Patient is agreeable to proceed with surgical intervention at this time. Will schedule patient for exploratory laparotomy, antrectomy with gastrojejunostomy on Sunday. Risks include but not limited to infection, bleeding, injury to bowel, liver, common bile duct spleen, surround neurovascular structures, possible leak from the anastomosis site, possible need for biliary reconstruction, abdominal sepsis and or abdominal abscess, pneumonia and blood clot discussed with the patient via inspector wire products. Benefits and alternatives explained to him, all his questions answered, he agreed and consented to proceed with the operation.
[2024-11-30 11:45] VITALS: BP 107/63; PULSE 81; RESP 16; TEMP 36.4; O2SAT 97
--- NOTE | 2024-11-30 14:23 | PC.SS ---
Rounding: Dr. Ziegler consulting [facility] SX, DC plan home
--- NOTE | 2024-11-30 14:35 | PC.SS ---
Trevor Cannon is a 54 year old male admitted to [place] for Abdominal Pain. Pt confirmed demographic. Pt resides with his friends. Pt is independent with his ADLS, and no need for DME. Pt identified his friend, Sujit Dave his surrogate decision maker. Pt [facility] choice [facility]. DC options discussed and pt wihes to return home. DC plan: Home DM: Sujit Dave, friend, phone# [phone]
--- NOTE | 2024-11-30 15:39 | EVENTNT_ITS ---
Documentation for date of: 11/30/24 Event Note Event Note: Background: Mr. Cannon is 89-year-old male with past medical history of large duodenal ulcer, gastric outlet obstruction and methamphetamine use who presented to the ED on 11/29/2024 with chief complaint of 3 to 4 days of vomiting. Admitted for gastric outlet obstruction management. Discussion: * Patient's Capacity and Understanding: * The patient appears to be alert and oriented and in my medical opinion has the capacity to make their own decisions. * The patient was not under any duress or coercion to leave. * Medical Condition and Assessment: * The patient's current symptoms or diagnosis were explained, including the severity of their condition. * It was explained that a full evaluation and treatment plan had not been completed, and that leaving could result in serious health consequences. * Specific Risks of Leaving AMA: * The reasonably foreseeable complications of leaving without further treatment were discussed, including but not limited to: * Risk of malnutrition secondary to gastric outlet obstruction. * Risk of electrolyte abnormalities and possible cardiac compilations * Risk of worsening bleeding from duodenal ulcer * Risk of * The patient verbally acknowledged and appeared to understand these risks. * Recommended Treatment and Refusal: * The recommended treatment plan was detailed, which included staying in the hospital for surgery with Dr. Ziegler to resolve the obstruction. Surgery would have to be performed on Saturday 12/02, per nurse, Dr. Ziegler is unwilling to perform the procedure if patient leaves AMA again. * The patient explicitly refused this further care, stating: I need to leave the hospital so i can go work. 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 I cannot stay in the hospital for a surgery because i will be out of work for too long. * Failed Persuasion: * The patient declined to stay in the hospital * All attempts to convince the patient to remain for treatment were unsuccessful. * Follow-Up Instructions: * The patient was advised to seek immediate medical attention or return to the emergency department if their symptoms worsen. * The patient was reminded that returning for care is always an option, and leaving AMA does not prevent them from receiving future treatment. * Emergency services (911) were also reviewed as an option for worsening symptoms.? Signed Documents: The patient signed the official AMA release form.? Plan discussed with Dr. Luevano and Dr. Libby Gregg MD PGY1
--- NOTE | 2024-11-30 15:39 | PD.RESEVENT ---
Documentation for date of: 11/30/24 Event Note Event Note: Background: Mr. Cannon is 89-year-old male with past medical history of large duodenal ulcer, gastric outlet obstruction and methamphetamine use who presented to the ED on 11/29/2024 with chief complaint of 3 to 4 days of vomiting. Admitted for gastric outlet obstruction management. Discussion: Patient's Capacity and Understanding: The patient appears to be alert and oriented and in my medical opinion has the capacity to make their own decisions. The patient was not under any duress or coercion to leave. Medical Condition and Assessment: The patient's current symptoms or diagnosis were explained, including the severity of their condition. It was explained that a full evaluation and treatment plan had not been completed, and that leaving could result in serious health consequences. Specific Risks of Leaving AMA: The reasonably foreseeable complications of leaving without further treatment were discussed, including but not limited to: Risk of malnutrition secondary to gastric outlet obstruction. Risk of electrolyte abnormalities and possible cardiac compilations Risk of worsening bleeding from duodenal ulcer Risk of The patient verbally acknowledged and appeared to understand these risks. Recommended Treatment and Refusal: The recommended treatment plan was detailed, which included staying in the hospital for surgery with Dr. Ziegler to resolve the obstruction. Surgery would have to be performed on Saturday 12/02, per nurse, Dr. Ziegler is unwilling to perform the procedure if patient leaves AMA again. The patient explicitly refused this further care, stating: I need to leave the hospital so i can go work. 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 I cannot stay in the hospital for a surgery because i will be out of work for too long. Failed Persuasion: The patient declined to stay in the hospital All attempts to convince the patient to remain for treatment were unsuccessful. Follow-Up Instructions: The patient was advised to seek immediate medical attention or return to the emergency department if their symptoms worsen. The patient was reminded that returning for care is always an option, and leaving AMA does not prevent them from receiving future treatment. Emergency services (911) were also reviewed as an option for worsening symptoms.? Signed Documents: The patient signed the official AMA release form.? Plan discussed with Dr. Luevano and Dr. Libby Gregg MD PGY1
== END 2024-11-30 15:20 | disposition left against medical advice (07) | DRG 380 ==
LOC: SERX 21:25 → SERHOLD 22:44 → S3NX 11-30 06:59
PROVIDERS: Nurse Practitioner Family; Admitting Provider Student in an Organized Health Care Education/Training Program; Emergency Provider Family Medicine; Visit Provider Student in an Organized Health Care Education/Training Program
DX: K31.1 Adult hypertrophic pyloric stenosis (principal); K26.4 Chronic or unspecified duodenal ulcer with hemorrhage; E46 Unspecified protein-calorie malnutrition; Z68.1 Body mass index [BMI] 19.9 or less, adult; E87.4 Mixed disorder of acid-base balance; K56.7 Ileus, unspecified; F17.210 Nicotine dependence, cigarettes, uncomplicated; E87.8 Other disorders of electrolyte and fluid balance, not elsewhere classified; E87.6 Hypokalemia; Z71.6 Tobacco abuse counseling; F15.90 Other stimulant use, unspecified, uncomplicated; Z53.29 Procedure and treatment not carried out because of patient's decision for other reasons
CPT/HCPCS: 36415; 74018; 74177; 76705; 80053; 80307; 80320; 81001; 82271; 83735; 84100; 84484; 85025; 85610; 87081; 87811; 93005; 96361; 96365; 96375; 96376; 99285; A4649; J1171; J2405; J2470; J3480; J3490; J7030; J7120; Q9967; A9270; G0480